=== PATIENT | female | born 1945 | race Caucasian/White ===

== ENCOUNTER 2019-11-04 04:59 | Inpatient (IN) ==
--- NOTE | 2019-10-21 10:24 | PAT Medication Instructions ---
Medication Instructions Date of Service October 21, 2019 Home Medications Vitamin B 12 Injection 1,000 mcg UD albuterol sulfate 2 inh INHALATION Q4H PRN aspirin [Aspir-81] 81 mg PO QAM atenolol 100 mg PO BID bumetanide 1 mg PO QAM cholecalciferol (vitamin D3) [Vitamin D3] 50 mcg PO BID coenzyme Q10 [CoQ-10] 100 mg PO BID dicyclomine 10 mg PO QID PRN esomeprazole magnesium [Nexium] 40 mg PO QAM gabapentin [Neurontin] 400 mg PO TID insulin glargine [Lantus Solostar U-100 Insulin] 65 unit SUBCUT HS magnesium 500 mg PO BID metformin 1,000 mg PO BID montelukast [Singulair] 10 mg PO QPM omega-3 acid ethyl esters [Lovaza] 2 cap PO BID ondansetron HCl [Zofran] 4 mg PO UD PRN ranolazine [Ranexa] 500 mg PO BID rosuvastatin [Crestor] 20 mg PO QPM semaglutide [Ozempic] 1 mg SUBCUT WK tiotropium bromide [Spiriva with HandiHaler] 1 cap INHALATION QAM vit C,X-Ye-rqgre-lutein-zeaxan [PreserVision AREDS-2] 1 tab PO BID Continue as directed semaglutide [Ozempic] 1 mg SUBCUT WK STOP taking 2 weeks before surgery (or as soon as possible if surgery is within 2 weeks) coenzyme Q10 [CoQ-10] 100 mg PO BID omega-3 acid ethyl esters [Lovaza] 2 cap PO BID vit C,I-Ug-ajksr-lutein-zeaxan [PreserVision AREDS-2] 1 tab PO BID DO NOT take the morning of surgery Vitamin B 12 Injection 1,000 mcg UD bumetanide 1 mg PO QAM cholecalciferol (vitamin D3) [Vitamin D3] 50 mcg PO BID dicyclomine 10 mg PO QID PRN magnesium 500 mg PO BID metformin 1,000 mg PO BID Take morning of surgery With a small sip of water, OTHERWISE NOTHING TO EAT OR DRINK AFTER MIDNIGHT: albuterol sulfate 2 inh INHALATION Q4H PRN (use if needed; please bring with you to hospital day of surgery if possible) aspirin [Aspir-81] 81 mg PO QAM atenolol 100 mg PO BID esomeprazole magnesium [Nexium] 40 mg PO QAM gabapentin [Neurontin] 400 mg PO TID ondansetron HCl [Zofran] 4 mg PO UD PRN (if needed) ranolazine [Ranexa] 500 mg PO BID tiotropium bromide [Spiriva with HandiHaler] 1 cap INHALATION QAM Take evening before surgery albuterol sulfate 2 inh INHALATION Q4H PRN (if needed) atenolol 100 mg PO BID cholecalciferol (vitamin D3) [Vitamin D3] 50 mcg PO BID dicyclomine 10 mg PO QID PRN (if needed) gabapentin [Neurontin] 400 mg PO TID insulin glargine [Lantus Solostar U-100 Insulin] 65 unit SUBCUT HS magnesium 500 mg PO BID metformin 1,000 mg PO BID montelukast [Singulair] 10 mg PO QPM ondansetron HCl [Zofran] 4 mg PO UD PRN (if needed) ranolazine [Ranexa] 500 mg PO BID rosuvastatin [Crestor] 20 mg PO QPM Other Notes If you have any questions please call us at [phone] or [phone] or [phone] or [phone]
--- NOTE | 2019-10-22 11:20 | Anesthesiology Consultation ---
Date of Service October 22, 2019 Assessment & Plan (1) Encounter for pre-operative examination: - Awaiting surgeon-ordered PCP clearance (Dr. Ford, 10/23) and pulmonary clearance (Dr. Tan). - Awaiting cardiology office visit scheduled 10/22 (Dr. Best). Per PAT assessment on 10/21: Travel screen negative. No known COVID-19 positive contacts. No current COVID-19 related symptoms. Per patient, surgeon arranging preop COVID testing. Awaiting results. - Check [facility] AM DOS Chart Review Chart Review: Patient seen in Pre Admission Testing Teaching & Discussion Pre-Anesthesia Teaching/Discussion Notes: Instructed NPO after midnight before surgery,except medications with 15 cc of water. Medication instructions provided according to the PAT guidelines. History Surgery Operation Date: 11/04/19 09:20 Proposed Procedures p Right Total Knee Arthroplasty - Jaxson Marques DO Height/Weight Height: 5 ft 2 in Weight: 79 kg Allergies Allergy/AdvReac Type Severity Reaction Status Date / Time ampicillin [From Omnipen] Allergy Unknown Rash Verified 10/15/19 09:13 fexofenadine [From Farzana] Allergy Unknown Rash Verified 10/15/19 09:13 lisinopril Allergy Unknown Rash Verified 10/15/19 09:13 nickel Allergy Unknown Rash Verified 10/22/19 15:31 BRAND NAMES NECESSARY Allergy Unknown PT REPORTS Uncoded 10/22/19 15:31 "NEEDS TO TAKE BRAND NAME MEDICIATIONS" Medications Home Medications Medication Instructions Recorded Confirmed Last Taken Vitamin B 12 Injection 1,000 mcg UD 10/15/19 10/15/19 10/13/19 albuterol sulfate 2 inh INHALATION Q4H PRN 10/15/19 10/15/19 Unknown aspirin [Aspir-81] 81 mg PO QAM 10/15/19 10/15/19 Unknown atenolol 100 mg PO BID 10/15/19 10/15/19 Unknown bumetanide 1 mg PO QAM 10/15/19 10/15/19 Unknown cholecalciferol (vitamin D3) 50 mcg PO BID 10/15/19 10/15/19 Unknown [Vitamin D3] coenzyme Q10 [CoQ-10] 100 mg PO BID 10/15/19 10/15/19 Unknown dicyclomine 10 mg PO QID PRN 10/15/19 10/15/19 Unknown esomeprazole magnesium [Nexium] 40 mg PO QAM 10/15/19 10/15/19 Unknown gabapentin [Neurontin] 400 mg PO TID 10/15/19 10/15/19 Unknown insulin glargine [Lantus Solostar 65 unit SUBCUT HS 10/15/19 10/15/19 Unknown U-100 Insulin] magnesium 500 mg PO BID 10/15/19 10/15/19 Unknown metformin 1,000 mg PO BID 10/15/19 10/15/19 Unknown montelukast [Singulair] 10 mg PO QPM 10/15/19 10/15/19 Unknown omega-3 acid ethyl esters [Lovaza] 2 cap PO BID 10/15/19 10/15/19 Unknown ondansetron HCl [Zofran] 4 mg PO UD PRN 10/15/19 10/15/19 Unknown ranolazine [Ranexa] 500 mg PO BID 10/15/19 10/15/19 Unknown rosuvastatin [Crestor] 20 mg PO QPM 10/15/19 10/15/19 Unknown semaglutide [Ozempic] 1 mg SUBCUT WK 10/15/19 10/15/19 Unknown tiotropium bromide [Spiriva with 1 cap INHALATION QAM 10/15/19 10/15/19 Unknown HandiHaler] vit C,Q-Gv-mvzwe-lutein-zeaxan 1 tab PO BID 10/15/19 10/15/19 Unknown [PreserVision AREDS-2] Past Medical History Medical History (Updated 10/22/19 @ 15:34 by Quin Whitmore) Acid reflux CAD (coronary artery disease) non-obstructive per 07/2019 cardiac cath COPD (chronic obstructive pulmonary disease) Diabetes Hiatal hernia High cholesterol History of back problems History of lung cancer History of skin cancer s/p multiple skin excisions HTN (hypertension) IBS (irritable bowel syndrome) Osteoarthritis Exercise / Class Metabolic Activity III < 4 Walking/Shop/Light housework Past Family History Family History Father Family history of lung cancer Mother Family history of lung cancer Sister Family history of diabetes mellitus Sister Family history of diabetes mellitus Brother Family history of diabetes mellitus Uncle Family history of diabetes mellitus Uncle Family history of diabetes mellitus Past Surgical History Surgical History (Updated 10/22/19 @ 11:49 by Quin Whitmore) History of breast biopsy R&L History of cardiac cath 07/2019 - no stents, 2019- no stents History of colonoscopy History of endoscopy MULTIPLE History of hysterectomy History of lobectomy of lung LEFT UPPER (9-10 YR AGO) History of lumbar spinal fusion History of lumbar spinal fusion REVISION History of surgery R ANKLE, 2 YR OLD History of total right knee replacement Past Anesthesia History No Hx of Anesthesia Complications and No Family Hx of Anesthesia Complications History of PONV No Hx of PONV and Hx of Motion Sickness (+ WITH BOAT RIDES) Social History Smoking Status: Current every day smoker tobacco type: cigarettes Smoking cigarettes per day: 3-4 CIGS/DAILY/ADVISED NPO Do You Dip or Chew Tobacco: No Hx Alcohol Use: No Hx Substance Use: No substance use type: does not use Review of Systems Patient denies chest pain (no recent chest pain for "a long time" since starting Ranexa), shortness of breath, fever, chills, wheezing, palpitations. Physical Exam Vital Signs VITALS BP 100/60 P 86 TEMP 98.1 SP02 97%RA RESP 18 PHYSICAL Full neck and c-spine range of motion. Full TMJ range of motion. TMD 3 finger breaths Mallampati Score 1 Dentition: missing molars, several crowns including sides/upper front, left lower side bridge Lungs: clear throughout to auscultation Cardiac: regular rate and rhythm, no murmurs noted Spine: normal Carotid arteries: negative bruit Extremities: no edema Testing Laboratory Results PT 10.2 Seconds (9.0-12.0) 10/22/19 12:09 INR 1.0 (0.9-1.1) 10/22/19 12:09 APTT 29.1 Seconds (21.0-31.0) 10/22/19 12:09 Urine Color Dark Yellow 10/22/19 12:09 Urine Appearance Turbid (Clear) A 10/22/19 12:09 Urine pH 5.0 (4.5-7.5) 10/22/19 12:09 Ur Specific [place] 1.016 (1.000-1.030) 10/22/19 12:09 Urine Protein 1+ (Negative) H 10/22/19 12:09 Urine Glucose (UA) Negative (Negative) 10/22/19 12:09 Urine Ketones Trace (Negative) H 10/22/19 12:09 Urine Nitrite Negative (Negative) 10/22/19 12:09 Ur Leukocyte Esterase 3+ (Negative) H 10/22/19 12:09 Urine WBC (Auto) >30 /hpf (0-5) H 10/22/19 12:09 Urine RBC (Auto) >30 /hpf (0-4) H 10/22/19 12:09 U Hyaline Cast (Auto) 1-5 /lpf (0-5) 10/22/19 12:09 U Epithel Cells (Auto) >30 /lpf (0-5) H 10/22/19 12:09 Urine Bacteria (Auto) 4+ (Negative) H 10/22/19 12:09 Blood Type O Positive 10/22/19 12:09 Antibody Screen NEGATIVE 10/22/19 12:09 10/09/19 WBC 6.72 H/H 11.9/35.6 PLATELETS 247 SODIUM 139 POTASSIUM 4.3 CHLORIDE 103 CO2 27.2 BUN 20.2 CREATININE 1.38 GLUCOSE 126 HGBA1C 6.3% Electrocardiogram Date: 07/08/19 SR with occasional PVC's at 94bpm. LBBB. (LBBB chronic/dating back to at least 09/18/2017 [facility] EKG) Chest X-Ray Date: 10/22/19 FINDINGS: The cardiac and mediastinal contours are normal. There is no evidence of focal pulmonary consolidation. There is no evidence of failure. No pleural effusions are visualized.[There is a calcified right perihilar granuloma. IMPRESSION: No active disease in the chest. Echocardiogram Date: 10/07/18 EF 45-50%. No RWMA. Mild cLVH. Mild global HK. No significant valvular disease. Cardiac Catheterization Date: 07/09/19 Multivessel non-obstructive CAD. Acute on chronic predominately diastolic congestive heart failure. LVEF 45%. Mild global HK. Pulmonary HTN secondary to LV diastolic dysfunction. Medical management recommended*
--- NOTE | 2019-10-22 13:04 | XRay Report ---
XR chest Pre-admission PA/Lat CLINICAL HISTORY: PAT COMPARISON STUDY: 09/18/2017 FINDINGS: The cardiac and mediastinal contours are normal. There is no evidence of focal pulmonary co nsolidation. There is no evidence of failure. No pleural effusions are visualized.[There is a calcifi ed right perihilar granuloma IMPRESSION: No active disease in the chest. ACT 112: Negative or not required by law. Electronically signed by: Van Smith M.D. 10/22/2019 1:03 PM
[2019-10-22 13:10] LABS: Partial Thromboplastin Time 29.1 Seconds (21.0-31.0); Prothrombin Time 10.2 Seconds (9.0-12.0)
[2019-10-22 13:44] LABS: Appearance Urine Turbid (Clear); Bacteria Urine Automated 4+ (Negative); Bilirubin Urine Negative (Negative); Blood Urine Trace (Negative); Color Urine Dark Yellow; Epithelial Cell Urine Auto >30 /lpf (0-5); Glucose Urine UA Negative (Negative); Ketones Urine Trace (Negative); Leukocyte Esterase Urine 3+ (Negative); Nitrite Urine Negative (Negative); Protein Urine 1+ (Negative); RBC Urine Automated >30 /hpf (0-4); Specific Gravity Urine 1.016 (1.000-1.030); Urobilinogen Urine Negative (Negative); WBC Urine Automated >30 /hpf (0-5)
--- NOTE | 2019-11-02 10:57 | History & Physical Report ---
Date of Service November 04, 2019 Assessment & Plan (1) Degenerative joint disease of knee, right: I have indicated the patient for right total knee replacement. The risks, benefits and complications of surgery were explained to the patient which include but not limited to infection, acute blood loss, DVT/PE, injury to nerves, vessels, bone, soft tissue, arthrofibrosis, chronic pain, failure of the prosthesis, knee dislocation, leg length discrepancy, need for additional surgery, cardiac and pulmonary events and . The patient wished to proceed with surgery and informed consent was obtained at this time. We will plan for ASA BID post-operatively for DVT prophylaxis. Upon discharge the patient will be discharged home with home health services. Appropriate clearances by PCP and cardiology were obtained. Patient is asymptomatic for UTI. History of Present Illness Chief Complaint: Right knee pain/djd Primary Care Provider: Kaylynn Mckoy DO The patient is a 74 year old female who presents with complaints of severe right knee pain and DJD. The patient has failed outpatient conservative treatments to this point which included NSAIDs, IA corticosteroid injection, KABA injection, home exercise/walking program. The patient's pain and limited function have progressed to the point where they severely hinder their activities of daily living and they no longer tolerate exercise programs. They are requesting to proceed with total knee replacement surgery. Allergies Allergy/AdvReac Type Severity Reaction Status Date / Time ampicillin [From Omnipen] Allergy Unknown Rash Verified 11/04/19 06:30 fexofenadine [From Farzana] Allergy Unknown Rash Verified 11/04/19 06:30 lisinopril Allergy Unknown Rash Verified 11/04/19 06:30 nickel Allergy Unknown Rash Verified 11/04/19 06:30 BRAND NAMES NECESSARY Allergy Unknown PT REPORTS Uncoded 10/22/19 15:31 "NEEDS TO TAKE BRAND NAME MEDICIATIONS" Home Medications Home Medications Medication Instructions Recorded Confirmed Type Vitamin B 12 Injection 1,000 mcg UD 10/15/19 11/04/19 History albuterol sulfate 2 inh INHALATION Q4H PRN 10/15/19 11/04/19 History aspirin [Aspir-81] 81 mg PO QAM 10/15/19 11/04/19 History atenolol 100 mg PO BID 10/15/19 11/04/19 History bumetanide 1 mg PO QAM 10/15/19 11/04/19 History cholecalciferol (vitamin D3) 50 mcg PO BID 10/15/19 11/04/19 History [Vitamin D3] coenzyme Q10 [CoQ-10] 100 mg PO BID 10/15/19 11/04/19 History dicyclomine 10 mg PO QID PRN 10/15/19 11/04/19 History esomeprazole magnesium [Nexium] 40 mg PO QAM 10/15/19 11/04/19 History gabapentin [Neurontin] 400 mg PO TID 10/15/19 11/04/19 History insulin glargine [Lantus Solostar 65 unit SUBCUT HS 10/15/19 11/04/19 History U-100 Insulin] magnesium 500 mg PO BID 10/15/19 11/04/19 History metformin 1,000 mg PO BID 10/15/19 11/04/19 History montelukast [Singulair] 10 mg PO QPM 10/15/19 11/04/19 History omega-3 acid ethyl esters [Lovaza] 2 cap PO BID 10/15/19 11/04/19 History ondansetron HCl [Zofran] 4 mg PO UD PRN 10/15/19 11/04/19 History ranolazine [Ranexa] 500 mg PO BID 10/15/19 11/04/19 History rosuvastatin [Crestor] 20 mg PO QPM 10/15/19 11/04/19 History semaglutide [Ozempic] 1 mg SUBCUT WK 10/15/19 11/04/19 History tiotropium bromide [Spiriva with 1 cap INHALATION QAM 10/15/19 11/04/19 History HandiHaler] vit C,O-Tv-dxack-lutein-zeaxan 1 tab PO BID 10/15/19 11/04/19 History [PreserVision AREDS-2] Past Med/Surg History Medical History Acid reflux CAD (coronary artery disease) non-obstructive per 07/2019 cardiac cath COPD (chronic obstructive pulmonary disease) Diabetes Hiatal hernia High cholesterol History of back problems History of lung cancer History of skin cancer s/p multiple skin excisions HTN (hypertension) IBS (irritable bowel syndrome) Osteoarthritis Surgical History History of breast biopsy R&L History of cardiac cath 07/2019 - no stents, 2019- no stents History of colonoscopy History of endoscopy MULTIPLE History of hysterectomy History of lobectomy of lung LEFT UPPER (9-10 YR AGO) History of lumbar spinal fusion History of lumbar spinal fusion REVISION History of surgery R ANKLE, 2 YR OLD History of total right knee replacement Family History Father Family history of lung cancer Mother Family history of lung cancer Sister Family history of diabetes mellitus Sister Family history of diabetes mellitus Brother Family history of diabetes mellitus Uncle Family history of diabetes mellitus Uncle Family history of diabetes mellitus Social History Smoking Status: Current every day smoker Cigarettes Per Day: 3-4 CIGS/DAILY/ADVISED NPO; Do You Dip or Chew Tobacco: No; Hx Alcohol Use: No Hx Substance Use: No Preferred Language: Ukrainian Communication Ability: Effective Dolphin Trainer Required: No Beliefs That Will Affect Care: Confucianist Confucianist Beliefs: JEWISH Current Living Situation: Spouse Other Information That Helps Us Care for You: No Feels Safe at Home: Yes Review of Systems Review of Systems: All systems reviewed & are unremarkable except as noted in HPI & below Constitutional: as per Subjective / HPI Physical Exam Physical Exam: RLE NVSI +EHL/FHL/TA/GS SILT grossly, +2 DP pulse, compartments soft NT, limited painful ROM, 10-115 degrees of flexion, +crepitus. Constitutional: WD/WN, vitals as above Eyes: PERRL, conjunctivae normal, anicteric sclerae ENMT: external ear and nose normal, oropharynx normal Neck: trachea midline, no thyromegaly Respiratory: normal respiratory effort, lungs clear to auscultation Cardiovascular: RRR, no murmur, no edema Gastrointestinal (Abdomen): normal bowel sounds, soft, nontender, no hepatosplenomegaly Musculoskeletal: no cyanosis or clubbing, extremities motor strength 5/5 Skin: no rashes, warm and dry Neurologic: patellar DTR's 2+ bilat, sensation intact Psychiatric: A+Ox3, euthymic affect Lymphatic: no cervical or axillary lymphadenopathy Results & Data Results & Data ([facility]) Diagnostic Findings Multiple views of the knee demonstrates severe tricompartmental DJD with complete loss of the medial and patellofemoral joint space. +osteophytes, +sclerosis, +subchondral cysts.
[2019-11-04] MEDS ORDERED: ROPIVACAINE 0.5% HCL/PF 150 MG, BUPIVACAINE 0.5% MPF 30 ML, EPINEPHrine 30MG/30ML (OR U... INSTIL SCH (06:00)
[2019-11-04] MEDS ORDERED: TRANEXAMIC ACID 1,000 MG **IV Pre-op IV SCH (06:00)
[2019-11-04] MEDS ORDERED: METOCLOPRAMIDE HCL 10 MG TABLET PO SCH (06:00)
[2019-11-04] MEDS ORDERED: FAMOTIDINE 20 MG TAB PO SCH (06:00)
[2019-11-04] MEDS ORDERED: GABAPENTIN 300 MG CAP PO SCH (06:00)
[2019-11-04] MEDS ORDERED: dexAMETHasone 4 MG TAB PO SCH (06:00)
[2019-11-04] MEDS ORDERED: LR 500ML BOLUS, THEN 15ML/HR IV SCH (06:00)
[2019-11-04] MEDS ORDERED: ACETAMINOPHEN 500 MG TAB PO SCH (06:00)
[2019-11-04] MEDS ORDERED: CeleBREX 200 MG CAP PO SCH (06:00)
[2019-11-04] MEDS ORDERED: TRANEXAMIC ACID 1,000 MG **IV Intra-op IV SCH (06:00)
[2019-11-04] MEDS ORDERED: BUPIVACAINE 0.5 % 5 MG/1 ML PF 10ML VIAL ONE (06:33)
[2019-11-04] MEDS ORDERED: LIDOCAINE HCL 2% 2 ML VIAL/AMP(20MG/ML) INFIL ONE (06:44)
[2019-11-04] MEDS ORDERED: ONDANSETRON INJ 2 MG/ML 2 ML VIAL ONE (06:44)
[2019-11-04] MEDS ORDERED: MIDAZOLAM HCL 1 MG/ML 2ML VIAL ONE ×2 (06:44→06:47)
[2019-11-04] MEDS ORDERED: fentaNYL citrate 100 MCG/2 ML VIAL ONE (06:44)
[2019-11-04] MEDS ORDERED: PROPOFOL IV EMULSION 10 MG/ML 20 ML VIAL IV ONE (06:44)
[2019-11-04] MEDS ORDERED: ONDANSETRON INJ 2 MG/ML 2 ML VIAL IV PRN ×2 (08:52→13:48)
[2019-11-04] MEDS ORDERED: ePHEDrine sulfate 50 MG/ML AMP IV PRN (08:52)
[2019-11-04] MEDS ORDERED: fentaNYL citrate 100 MCG/2 ML VIAL IV PRN (08:52)
[2019-11-04] MEDS ORDERED: ATROPINE SULFATE 0.1 MG/ML 10ML SYR IV PRN (08:52)
[2019-11-04] MEDS ORDERED: CEFAZOLIN 2,000 MG/15 ML IV PUSH IV ONE (09:40)
--- NOTE | 2019-11-04 09:43 | History & Physical Bridge Note ---
Date of Service November 04, 2019 History & Physical Bridge Note I have examined the patient, reviewed the History & Physical and in the interval since the performance of the History & Physical I have noted the following changes of clinical significance: no changes noted
[2019-11-04] MEDS ORDERED: CEFAZOLIN 2000MG 2,000 MG/15 ML SYR IV ONE (09:51)
[2019-11-04] MEDS ORDERED: ORTHO JOINT ANESTHETIC ONE (09:52)
[2019-11-04] MEDS ORDERED: BACITRACIN INJ 50,000 UNIT VIAL ONE (09:52)
[2019-11-04] MEDS ORDERED: ePHEDrine sulfate 50 MG/ML AMP ONE (11:57)
[2019-11-04] MEDS ORDERED: VASOPRESSIN 20 UNIT/ML VIAL ONE (11:57)
[2019-11-04] MEDS ORDERED: PHENYLEPHRINE HCL 10 MG/ML VIAL ONE (11:57)
[2019-11-04] MEDS ORDERED: NEOSTIGMINE METHYLSULFATE 5 MG/5 ML SYR ONE (11:57)
--- NOTE | 2019-11-04 12:02 | Post Operative Brief Note ---
Immediate Post Op Note v1 Date of Surgery November 04, 2019 Pre & Post Diagnosis Operation Date: 11/04/19 09:35 Pre-Op Diagnosis: Unilateral Primary Osteoarthritis, Right Knee Post-Op Diagnosis: Unilateral Primary Osteoarthritis, Right Knee I identified the patient and participated in the time-out.: Yes Procedure Operation Date: 11/04/19 09:35 Actual Procedures p Right Total Knee Arthroplasty - Jaxson Marques DO Surgeon Jaxson Marques DO Team Manager Sumit Lantigua Estimated Blood Loss 65 Findings Consistent with Post-Op Diagnosis Fluids 800 cc LR Specimens Proximal tibia and distal femur Anesthesia Type Spinal MAC Complications none Disposition Disposition: Recovery Room Overlapping Procedure I was present for: the critical portions of procedure. I was immediately available: during the entire case. Back up surgeon: was not required during procedure.
--- NOTE | 2019-11-04 12:07 | Operative Report ---
Post Operative Report Pre & Post Diagnosis Operation Date: 11/04/19 09:35 Pre-Op Diagnosis: Unilateral Primary Osteoarthritis, Right Knee Post-Op Diagnosis: Unilateral Primary Osteoarthritis, Right Knee I identified the patient and participated in the time-out.: Yes Procedure Operation Date: 11/04/19 09:35 Actual Procedures p Right Total Knee Arthroplasty - Jaxson Marques DO Surgeon Jaxson Marques, Plate Worker Helper Sumit Lantigua Estimated Blood Loss 65 Findings Consistent with Post-Op Diagnosis Fluids 800 cc LR Specimens Proximal tibia and distal femur bone fragments Anesthesia Type Spinal MAC Complications none Disposition Disposition: Recovery Room Indications The patient is a 74-year-old female presents with long history of severe right knee tricompartmental DJD and failed outpatient conservative treatments including NSAIDs, bracing, injections and home walking/exercise program. The patient's symptoms have progressed to the point where it has been difficult to p erform normal activities of daily living. I have indicated the patient for a right total knee arthroplasty, the risks and benefits and complications of the procedure include but are not limited to infection bleeding damage to bone, nerves, vessels, surrounding soft tissue, blood clots, loss of function, leg length discrepancy, dislocation, failure of the components, need for additional surgery and . The patient wished to proceed with surgery at this time and informed consent was obtained. Appropriate clearances were obtained. Description of Procedure COMPONENTS USED: [employer] journey 2 knee system: Femur size 3, Tibia size 2 tibial articulating surface 12 semiconstrained, Patella 29 mm Following induction of spinal anesthesia, a tourniquet was applied to the proximal aspect of the thigh and the patient's right leg was prepped and draped in the usual sterile manner. A timeout was performed, patient identified and s ite bharath confirmed. Appropriate pre-operative IV antibiotics were given. The limb was exsanguinated with an Esmarch bandage and tourniquet was inflated to 300 mmHg. A longitudinal midline incision was made over the anterior knee. Subcutaneous tissue was sharply dissected down to fascia. Electrocautery was used for hemostasis. Next a parapatellar arthrotomy was performed. Patella was everted and the knee was flexed. A Wood retractor was used to expose the synovium above on the anterior aspect of the femur and removed down to bone. Next, the anterior fat pad was removed to aid in visualization. The medial face of the tibia was cleared of soft tissue first with a Bovie and a kaur elevator. This tissue was retracted posteriorly using a blunt Hohmann. Next, the extra-medullary tibial cutting guide was placed to the anterior aspect of the tibia. The tibia resection level was set taking 2mm from the defective tibial condyle. Resection depth was once again confirmed with kyara wing. The medial and lateral collateral ligament was protected with two Hohmann retractors. The tibia guide was removed and proximal tibial bone fragment removed utilizing straight osteotome, electrocautery and Cristina. Next, the distal femur intramedullary canal was accessed utilizing the step drill. The intramedullary distal femur cutting guide was placed into the canal and pinned into place. The distal femur was cut on the 5 degree setting. Next the cutting guide was removed and the femur was sized. Care was taken to ensure appropriate associate juvenile court judge all rotation and 3 degree holes were drilled. A size 3 5-in-1 cutting block was placed on the distal end of the femur and secured into place with two short headed screws. Two bent Hohmann retractors were placed to protect the medial and lateral collateral ligaments. The oscillating saw was used to cut anterior, posterior, anterior chamfer and posterior chamfer. The four and one cutting block was removed and bone fragments excised. Laminar cuff knitter was placed laterally and the ACL and PCL were removed followed by the medial meniscus and posterior medial osteophytes. Aquamantys was utilized for any posterior medial bleeders and Orthomix injected into the posterior medial capsule. A laminar cuff knitter was then placed in the medial compartment and the lateral meniscus and posterior osteophytes were removed. Aquamantys was utilized for any posterior lateral bleeders and Orthomix injected into the posterior lateral capsule. Next, drop mike and spacer block were placed with the leg in flexion and extensi on to assess alignment and flexion/extension gaps. Next, the proximal tibia was assessed and two bent Hohmans were placed medial and lateral to aid in visualization. The appropriate tibia size and rotation was selected and a size 2 tibial plate was pinned into place with appropriate rotation. Preparation of the tibia was completed utilizing the matching tibial drill and broach. I then turned my attention back to the distal femur in a trial femoral component was impacted into place. Appropriate femoral width was assessed and selected. Next the femur box cut guide was placed and cut made with the reciprocal saw and the PS box provisional placed. A trial size 10 BCS tibia articular tray was placed and varus-valgus balance assessed in 0 degrees of extension and 30, 60 and 90 degrees of flexion. A final tibial articular surface size 12 BCS constrained was chosen. Assess was gained to the patella and caliper utilized to measure width. The patella reamer was utilized and remaining bone removed with oscillating saw. A size 29 patella button was selected and the patella pegs drilled. Trial patella button was placed and tracking was assessed. The knee was found to be well ba lanced, well aligned with excellent patella tracking. The trials were removed and final components were obtained and assembled. The knee was irrigated copiously with sterile saline solution mixed with bacitracin. Access to the proximal tibia was once again obtained utilizing to the Hohmans and the proximal tibia and distal femur were dried with lap sponges. The final components were cemented into place and all excess cement was removed. A trial tibial articular surface was placed while cemented hardened. Knee stability was once again assessed and the final component inserted. A Betadine soak was performed. After 3 minutes, the hip was once more irrigated with copious sterile saline solution with bacitracin. The knee was injected with the remaining Orthomix which includes a combination of Ropivicaine 0.5% 150mg, Bupivicaine 0.5%/Epinephrine 1:200,000 30ml, Toradol 30mg, Dexamethasone 4mg, Ketamine 10mg, Clonidine 100mcg and NSS 30ml solution. The capsulotomy was closed with #1 Vicryl followed by subcutaneous closure with 2-0 Vicryl suture and a 3-0 V-lock suture. Skin closure was performed using Prineo dressing followed by Telfa, 4 x 4s and june wrap. Tourniquet was deflated at 98 minutes. The patient tolerated the procedure well and was taken to the PACU in stable condition. Due to the complex nature of the procedure, the entire surgery was performed with the operational assistance of Sumit Lantigua PA-C. The physical laboratory assistant, under direct supervision, was involved in the actual performance of all aspects of the surgical procedure including patient positioning, hemostasis, tissue retraction, instrument management and wound closure. I attest to the content of the Intraoperative Record and any orders documented therein. Any exceptions are noted below.
--- NOTE | 2019-11-04 12:59 | XRay Report ---
XR knee RT 1 or 2V routine CLINICAL HISTORY: Surgical Post Op COMPARISON: None. DISCUSSION: There are postsurgical changes of a total right knee arthroplasty and patellar resurfacin g. The femoral and tibial components appear well seated. There is gas present the soft tissues consis tent with recent surgery. IMPRESSION: Postsurgical changes of a total right knee arthroplasty. ACT 112: Negative or not required by law. Electronically signed by: Van Smith M.D. 11/04/2019 12:58 PM
--- NOTE | 2019-11-04 13:25 | Anesthesiology Progress Note ---
Date of Service November 04, 2019 Anesthesia Post Procedure Vital Signs Vital Signs: Temp Pulse Pulse Resp BP BP Pulse Ox 11/04/19 13:05 97 H 14 142/56 H 94 11/04/19 12:55 96 H 14 126/57 L 94 11/04/19 12:45 98.1 F 96 H 16 81/56 L 94 11/04/19 12:35 95 H 15 90/53 L 95 11/04/19 12:28 98.2 F 96 H 16 93/59 L 96 11/04/19 08:45 98.1 F 89 18 88/66 L 99 11/04/19 07:16 98.6 F 87 20 136/66 94 Transfer of Care Handoff Completed per policy Notes Mental Status: alert / awake / arousable and participated in evaluation Patient Amnestic to Procedure: Yes Nausea / Vomiting: adequately controlled Pain: adequately controlled Airway Patency, RR, SpO2: stable & adequate BP & HR: stable & adequate Hydration State: stable & adequate Neuraxial Anesthesia: was administered and sensory block is resolving Anesthetic Complications: no major complications apparent and Pt Satisfied with anesthetic care
[2019-11-04] MEDS ORDERED: MAGNESIUM HYDROXIDE SUSP 30 ML UDC PO PRN (13:48)
[2019-11-04] MEDS ORDERED: ALBUTEROL HFA 8 GM INHALER INH PRN (13:48)
[2019-11-04] MEDS ORDERED: HYDROmorphone INJ 0.5 MG/0.5 ML SYR IV PRN (13:48)
[2019-11-04] MEDS ORDERED: DICYCLOMINE HCL 10 MG CAP PO PRN (13:48)
[2019-11-04] MEDS ORDERED: NALOXONE HCL 0.4 MG/1 ML VIAL/CARP IV PRN (13:48)
[2019-11-04] MEDS ORDERED: bisacodyL 10 MG SUPP PR PRN (13:48)
[2019-11-04] MEDS ORDERED: METOCLOPRAMIDE HCL INJ 5 MG/ML 2 ML VIAL IV PRN (13:48)
[2019-11-04] MEDS ORDERED: PHARMACY GLYCEMIC MGMT CONSULT PRN (13:59)
[2019-11-04] MEDS ORDERED: INSULIN GLARGINE SOLOSTAR 100 UNITS/ML 3 ML PEN SC STA (14:13)
--- NOTE | 2019-11-04 14:29 | Pharmacy Report ---
Glycemic Control Consultation - Date of Service November 04, 2019 - Scope Scope: Glycemic Pharmacist consulted for glycemic control and to write orders per [facility] inpatient glycemic control protocol. - Objective Weight: 78.3 kg Accuchecks BSG (last 24hrs): 11/04/19 11/04/19 06:15 13:34 POC Glucose 233 H 221 H - Recent Pertinent Medications Outpatient Anti-diabetic Regimen: * Lantus 65 units SC HS + Ozempic 1 mg SC Saturdays + Metformin 1000 mg PO BIDM * A1c = 6.8% (08/02/2017) Risk Factors for Insulin Resistance: * Steroids: * Dexamethasone 8 mg PO x 1 pre-op * Dexamethasone 4 mg topical x 1 intra-op * Recent Surgery: * POD #0 s/p R TKA * Diet: * T2DM - Assessment & Plan Assessment & Plan: ASSESSMENT: * 74 yo F who is POD #0 s/p Right Total Knee Arthroplasty. Pharmacy is consulted for post-operative glycemic management. * Last A1c is from 2018 so ordered a new A1c for tomorrow morning. Patient has insulin-dependent T2DM and is very basal heavy at home. ADA & AACE recommend a goal blood sugar range 140-180 mg/dl for the majority of critically ill & non- critically ill patients. However, more stringent targets may be selected in individual cases. Will utilize more stringent goal of 110-140mg/dl based on patient age & comorbidities. Additionally, tighter glycemic control is warranted to facilitate wound/infection healing. * She did receive dexamethasone pre-op but no further doses are ordered. Dexamethasone will have it's most profound effect on post-prandial BSGs. * Pre-op BSG was 233 mg/dL. Does not appear that patient received any pre-op or intra-op insulin. She did take her full Lantus 65 units last evening. Her post-op BSG was 221 mg/dL. * Will give 20 units of Lantus x 1 right now (0.26 units/kg). Then will resume home dose of Lantus 65 units at HS. Given post-op hyperglycemia and patient ordered a diet/eating, will start patient on a very high dose/stress, weight- based, carb ratio and correction factor. PLAN FOR INPATIENT GLYCEMIC CONTROL: * Holding outpatient oral diabetes medications * Basal insulin * Lantus 20 units SQ x 1 now * Lantus 65 units SQ HS * Bolus insulin * NovoLog per scale ACHS or Q6hrs while NPO * Goal Range: Low 110 mg/dL - High 140 mg/dL * Correction Factor: 15 mg/dL/unit * Nutritional / Prandial insulin per carb ratio of 1 unit per 5 grams CHO consumed * Please note that the plan above was derived based on current level of insulin resistance and hospital stress. These recommendations are appropriate for inpatient admission only. Plan of care upon discharge will need to be reassessed to avoid potential outpatient hypo/hyperglycemia. Thank you.
[2019-11-04] MEDS ORDERED: INSULIN GLARGINE SOLOSTAR 100 UNITS/ML 3 ML PEN SC ONE (14:30)
[2019-11-04] MEDS: SODIUM CHLORIDE 0.9% 1000ML 1,000 ML IV SCH ×2 (14:43→23:56)
[2019-11-04] MEDS: ACETAMINOPHEN 500 MG TAB PO SCH ×2 (15:12→21:35)
[2019-11-04] MEDS: GABAPENTIN 400 MG CAP PO SCH ×2 (15:21→19:29)
[2019-11-04] MEDS: INSULIN ASPART 100 UNITS/ML 3 ML PEN SC SCH ×3 (15:21→21:26)
[2019-11-04] MEDS ORDERED: INSULIN GLARGINE SOLOSTAR 100 UNITS/ML 3 ML PEN SC SCH ×2 (18:00→21:00)
[2019-11-04] MEDS: KETOROLAC TROMETHAMINE 15 MG/ML VIAL IV SCH ×2 (18:23→21:35)
[2019-11-04] MEDS: CEFAZOLIN 2000MG 2,000 MG/15 ML SYR IV SCH (18:24)
[2019-11-04] MEDS: SENNA 8.6 MG TAB PO SCH (19:19)
[2019-11-04] MEDS: DOCUSATE SODIUM 100 MG CAP PO SCH (19:19)
[2019-11-04] MEDS: ROSUVASTATIN CALCIUM 20 MG TAB PO SCH (19:28)
[2019-11-04] MEDS: MONTELUKAST SODIUM 10 MG TABLET PO SCH (19:30)
[2019-11-04] MEDS: RANOLAZINE 500 MG ER TAB PO SCH (19:30)
[2019-11-04] MEDS: ATENOLOL 50 MG TABLET PO SCH (19:32)
--- NOTE | 2019-11-04 19:45 | Orthopedic Progress Note ---
Date of Service November 04, 2019 Assessment & Plan (1) Degenerative joint disease of knee, right: s/p Right TKA -ancef x 24 -DVT ppx: SCDs, TEDs, ASA BID -WBAT RLE -PT/OT -PO XR demonstrates a well aligned well fixed prothesis without fracture/dislocation -am labs -DC planning Admission and Anticipated Discharge Date Admission Date: November 04, 2019 Subjective Post Operative Progress Note Patient seen sitting in chair at bedside, comfortable, denies complaints, pain well controlled, no acute issues. Review of Systems Review of Systems: All systems reviewed & are unremarkable except as noted in HPI & below Constitutional: as per Subjective / HPI Physical Exam Physical Exam: RLE NVSI +EHL/FHL/TA/GS SILT grossly, +2 DP pulse, compartments soft NT, dressing cdi. Constitutional: WD/WN, vitals as above Results & Data ([facility]) Vital Signs (Past 12 Hours) Vital Signs Temp Pulse Pulse Pulse Resp BP BP 11/04/19 16:35 36.7 C 102 H 17 127/62 11/04/19 15:43 36.7 C 100 H 17 133/67 11/04/19 14:40 99 H 16 162/81 H 11/04/19 14:10 99 H 16 156/81 H 11/04/19 13:40 36.9 C 96 H 14 137/63 11/04/19 13:25 98 H 14 138/62 11/04/19 13:05 97 H 14 142/56 H 11/04/19 12:55 96 H 14 126/57 L 11/04/19 12:45 36.7 C 96 H 16 81/56 L 11/04/19 12:35 95 H 15 90/53 L 11/04/19 12:28 36.8 C 96 H 16 93/59 L 11/04/19 08:45 36.7 C 89 18 88/66 L Pulse Ox 11/04/19 16:35 94 11/04/19 15:43 94 11/04/19 14:40 97 11/04/19 14:10 98 11/04/19 13:40 98 11/04/19 13:25 96 11/04/19 13:05 94 11/04/19 12:55 94 11/04/19 12:45 94 11/04/19 12:35 95 11/04/19 12:28 96 11/04/19 08:45 99
[2019-11-04] MEDS ORDERED: INSULIN REGULAR 250 UNITS in SODIUM CHLORIDE 0.9% 247.5 ML IV SCH (21:00)
[2019-11-04] MEDS ORDERED: INSULIN HUMAN REGULAR IV BOLUS 2 UNITS in SYRINGE 0 ML IV ONE (21:00)
[2019-11-04] MEDS: INSULIN GLARGINE SOLOSTAR 100 UNITS/ML 3 ML PEN SC SCH (21:20)
[2019-11-04] MEDS: ALBUTEROL INH PRN (21:45)
[2019-11-04 21:53] LABS: BUN Creatinine Ratio 9.1 (10-20); Calcium 8.9 mg/dl (8.5-10.1); Creatinine Clr Calc Pharmacy 26.7 ml/min; Est GFR (African American) 31.8; Est GFR (Non-African American) 27.4; Potassium 4.7 mmol/L (3.5-5.1)
[2019-11-04 22:07] LABS: Beta-Hydroxybutyrate 3.45 mg/dl (0.2-2.81)
[2019-11-05] MEDS: CEFAZOLIN 2000MG 2,000 MG/15 ML SYR IV SCH (01:50)
[2019-11-05] MEDS: KETOROLAC TROMETHAMINE 15 MG/ML VIAL IV SCH ×2 (04:17→09:12)
[2019-11-05] MEDS: ACETAMINOPHEN 500 MG TAB PO SCH ×3 (06:44→20:38)
[2019-11-05] MEDS ORDERED: NovoLIN-N (NPH) PER UNIT CHARGE SQ ONE (07:30)
[2019-11-05 07:38] LABS: Hematocrit (blood only) 29.1 % (37-47); Hemoglobin 10.1 g/dL (12.0-16.0); Mean Corpuscular Hemoglobin 31.3 pg (25-34); Mean Corpuscular Hgb Conc 34.7 g/dL (32-36); Mean Corpuscular Volume 90.1 fL (80-100); Mean Platelet Volume 8.9 fL (7.4-10.4); Platelet Count 233 K/uL (130-400); RDW Coefficient of Variation 14.9 % (11.5-14.5); RDW Standard Deviation 48.5 fL (36.4-46.3); Red Blood Count 3.23 M/uL (4.2-5.4); White Blood Count 12.04 K/uL (4.8-10.8)
[2019-11-05] MEDS: UMECLIDINIUM BROMIDE 62.5MCG/BLISTER 7 PUFFS/INHALER INH SCH (08:08)
[2019-11-05] MEDS: ATENOLOL 50 MG TABLET PO SCH ×2 (08:09→20:37)
[2019-11-05] MEDS: RANOLAZINE 500 MG ER TAB PO SCH ×2 (08:09→20:37)
[2019-11-05] MEDS: BUMETANIDE 1 MG TAB PO SCH ×2 (08:09→08:41)
[2019-11-05] MEDS: PANTOprazole 40 MG TAB PO SCH (08:09)
[2019-11-05] MEDS: MULTIVITAMIN TAB PO SCH (08:09)
[2019-11-05] MEDS: GABAPENTIN 400 MG CAP PO SCH ×3 (08:10→20:37)
[2019-11-05] MEDS: DOCUSATE SODIUM 100 MG CAP PO SCH ×2 (08:10→20:38)
[2019-11-05 08:11] LABS: BUN Creatinine Ratio 11.7 (10-20); Calcium 8.6 mg/dl (8.5-10.1); Creatinine Clr Calc Pharmacy 34.4 ml/min; Est GFR (African American) 43.2; Est GFR (Non-African American) 37.2; Potassium 4.6 mmol/L (3.5-5.1)
[2019-11-05 08:19] LABS: Estimated Average Glucose 143 mg/dl; Hemoglobin A1C 6.6 % (4.5-5.6)
[2019-11-05] MEDS ORDERED: ASPIRIN 325 MG ECTAB PO SCH (09:00)
[2019-11-05] MEDS: INSULIN ASPART 100 UNITS/ML 3 ML PEN SC SCH ×4 (09:04→20:40)
--- NOTE | 2019-11-05 09:25 | Orthopedic Progress Note ---
Date of Service November 05, 2019 Assessment & Plan (1) Degenerative joint disease of knee, right: s/p Right TKA POD#1 -ancef x 24 -DVT ppx: SCDs, TEDs, ASA BID -WBAT RLE -PT/OT -PO XR demonstrates a well aligned well fixed prothesis without fracture/dislocation -am labs - as above, hgb 10.1. Patient with ADRIANA Cr 1.79, pre op Cr 1.39, will monitor, IV fluids, avoid nephrotoxic medications, encourage PO intake. Will recheck BMP this afternoon -DC planning - home with Admission and Anticipated Discharge Date Admission Date: November 04, 2019 Subjective Post Operative Progress Note Patient seen laying in bed this a.m. performing exercises, comfortable, denies complaints, pain well controlled, no acute issues. Denies F/C/N/V/SOB/CP. Review of Systems Review of Systems: All systems reviewed & are unremarkable except as noted in HPI & below Constitutional: as per Subjective / HPI Physical Exam Physical Exam: RLE NVSI +EHL/FHL/TA/GS SILT grossly, +2 DP pulse, compartments soft NT, dressing cdi. Constitutional: WD/WN, vitals as above Results & Data ([facility]) Vital Signs (Past 12 Hours) Vital Signs Temp Pulse Resp BP Pulse Ox 11/05/19 07:15 36.9 C 90 16 150/76 H 96 11/05/19 07:06 165/84 H 11/05/19 07:00 36.6 C 93 H 16 97 11/05/19 03:47 36.6 C 93 H 16 144/71 H 93 11/04/19 23:44 36.7 C 95 H 16 148/68 H 93 Laboratory Results 11/05/19 11/05/19 11/05/19 Range/Units 08:58 07:57 07:09 WBC (4.8-10.8) K/uL RBC (4.2-5.4) M/uL Hgb (12.0-16.0) g/dL Hct (37-47) % MCV (80-100) fL MCH (25-34) pg MCHC (32-36) g/dL RDW Std Deviation (36.4-46.3) fL RDW Coeff of Clemencia (11.5-14.5) % Plt Count (130-400) K/uL MPV (7.4-10.4) fL Sodium (136-145) mmol/L Potassium (3.5-5.1) mmol/L Chloride (98-107) mmol/L Carbon Dioxide (21-32) mmol/L Anion Gap (3-11) BUN (7-18) mg/dl Creatinine (0.6-1.2) mg/dl Est Cr Clr Drug Dosing ml/min Est GFR ( Amer) Est GFR (Non-Af Amer) BUN/Creatinine Ratio (10-20) Glucose (70-99) mg/dl POC Glucose 142 H 138 H (70-99) mg/dl Estimat Average Glucose mg/dl Hemoglobin A1c (4.5-5.6) % Calcium (8.5-10.1) mg/dl Beta-Hydroxybutyric Acd (0.2-2.81) mg/dl Hepatitis C Ab Screen Pending 11/05/19 11/05/19 11/05/19 Range/Units 07:09 07:09 07:09 WBC 12.04 H (4.8-10.8) K/uL RBC 3.23 L (4.2-5.4) M/uL Hgb 10.1 L (12.0-16.0) g/dL Hct 29.1 L (37-47) % MCV 90.1 (80-100) fL MCH 31.3 (25-34) pg MCHC 34.7 (32-36) g/dL RDW Std Deviation 48.5 H (36.4-46.3) fL RDW Coeff of Clemencia 14.9 H (11.5-14.5) % Plt Count 233 (130-400) K/uL MPV 8.9 (7.4-10.4) fL Sodium 138 (136-145) mmol/L Potassium 4.6 (3.5-5.1) mmol/L Chloride 109 H (98-107) mmol/L Carbon Dioxide 24 (21-32) mmol/L Anion Gap 5.0 (3-11) BUN 16 (7-18) mg/dl Creatinine 1.39 H D (0.6-1.2) mg/dl Est Cr Clr Drug Dosing 34.4 ml/min Est GFR ( Amer) 43.2 Est GFR (Non-Af Amer) 37.2 BUN/Creatinine Ratio 11.7 (10-20) Glucose 132 H (70-99) mg/dl POC Glucose (70-99) mg/dl Estimat Average Glucose 143 mg/dl Hemoglobin A1c 6.6 H (4.5-5.6) % Calcium 8.6 (8.5-10.1) mg/dl Beta-Hydroxybutyric Acd (0.2-2.81) mg/dl Hepatitis C Ab Screen 11/05/19 11/05/19 11/05/19 Range/Units 06:58 05:57 04:56 WBC (4.8-10.8) K/uL RBC (4.2-5.4) M/uL Hgb (12.0-16.0) g/dL Hct (37-47) % MCV (80-100) fL MCH (25-34) pg MCHC (32-36) g/dL RDW Std Deviation (36.4-46.3) fL RDW Coeff of Clemencia (11.5-14.5) % Plt Count (130-400) K/uL MPV (7.4-10.4) fL Sodium (136-145) mmol/L Potassium (3.5-5.1) mmol/L Chloride (98-107) mmol/L Carbon Dioxide (21-32) mmol/L Anion Gap (3-11) BUN (7-18) mg/dl Creatinine (0.6-1.2) mg/dl Est Cr Clr Drug Dosing ml/min Est GFR ( Amer) Est GFR (Non-Af Amer) BUN/Creatinine Ratio (10-20) Glucose (70-99) mg/dl POC Glucose 157 H 196 H 191 H (70-99) mg/dl Estimat Average Glucose mg/dl Hemoglobin A1c (4.5-5.6) % Calcium (8.5-10.1) mg/dl Beta-Hydroxybutyric Acd (0.2-2.81) mg/dl Hepatitis C Ab Screen 11/05/19 11/05/19 11/05/19 Range/Units 03:56 02:57 01:57 WBC (4.8-10.8) K/uL RBC (4.2-5.4) M/uL Hgb (12.0-16.0) g/dL Hct (37-47) % MCV (80-100) fL MCH (25-34) pg MCHC (32-36) g/dL RDW Std Deviation (36.4-46.3) fL RDW Coeff of Clemencia (11.5-14.5) % Plt Count (130-400) K/uL MPV (7.4-10.4) fL Sodium (136-145) mmol/L Potassium (3.5-5.1) mmol/L Chloride (98-107) mmol/L Carbon Dioxide (21-32) mmol/L Anion Gap (3-11) BUN (7-18) mg/dl Creatinine (0.6-1.2) mg/dl Est Cr Clr Drug Dosing ml/min Est GFR ( Amer) Est GFR (Non-Af Amer) BUN/Creatinine Ratio (10-20) Glucose (70-99) mg/dl POC Glucose 204 H 223 H 255 H (70-99) mg/dl Estimat Average Glucose mg/dl Hemoglobin A1c (4.5-5.6) % Calcium (8.5-10.1) mg/dl Beta-Hydroxybutyric Acd (0.2-2.81) mg/dl Hepatitis C Ab Screen 11/05/19 11/04/19 11/04/19 Range/Units 00:48 23:45 22:29 WBC (4.8-10.8) K/uL RBC (4.2-5.4) M/uL Hgb (12.0-16.0) g/dL Hct (37-47) % MCV (80-100) fL MCH (25-34) pg MCHC (32-36) g/dL RDW Std Deviation (36.4-46.3) fL RDW Coeff of Clemencia (11.5-14.5) % Plt Count (130-400) K/uL MPV (7.4-10.4) fL Sodium (136-145) mmol/L Potassium (3.5-5.1) mmol/L Chloride (98-107) mmol/L Carbon Dioxide (21-32) mmol/L Anion Gap (3-11) BUN (7-18) mg/dl Creatinine (0.6-1.2) mg/dl Est Cr Clr Drug Dosing ml/min Est GFR ( Amer) Est GFR (Non-Af Amer) BUN/Creatinine Ratio (10-20) Glucose (70-99) mg/dl POC Glucose 278 H 304 H* 364 H* (70-99) mg/dl Estimat Average Glucose mg/dl Hemoglobin A1c (4.5-5.6) % Calcium (8.5-10.1) mg/dl Beta-Hydroxybutyric Acd (0.2-2.81) mg/dl Hepatitis C Ab Screen 11/04/19 11/04/19 11/04/19 Range/Units 21:24 20:31 20:28 WBC (4.8-10.8) K/uL RBC (4.2-5.4) M/uL Hgb (12.0-16.0) g/dL Hct (37-47) % MCV (80-100) fL MCH (25-34) pg MCHC (32-36) g/dL RDW Std Deviation (36.4-46.3) fL RDW Coeff of Clemencia (11.5-14.5) % Plt Count (130-400) K/uL MPV (7.4-10.4) fL Sodium 132 L (136-145) mmol/L Potassium 4.7 (3.5-5.1) mmol/L Chloride 101 (98-107) mmol/L Carbon Dioxide 20 L (21-32) mmol/L Anion Gap 10.0 (3-11) BUN 16 (7-18) mg/dl Creatinine 1.79 H (0.6-1.2) mg/dl Est Cr Clr Drug Dosing 26.7 ml/min Est GFR ( Amer) 31.8 Est GFR (Non-Af Amer) 27.4 BUN/Creatinine Ratio 9.1 L (10-20) Glucose 349 H* (70-99) mg/dl POC Glucose 408 H* 453 H* (70-99) mg/dl Estimat Average Glucose mg/dl Hemoglobin A1c (4.5-5.6) % Calcium 8.9 (8.5-10.1) mg/dl Beta-Hydroxybutyric Acd 3.45 H (0.2-2.81) mg/dl Hepatitis C Ab Screen 11/04/19 11/04/19 11/04/19 Range/Units 17:14 17:12 13:34 WBC (4.8-10.8) K/uL RBC (4.2-5.4) M/uL Hgb (12.0-16.0) g/dL Hct (37-47) % MCV (80-100) fL MCH (25-34) pg MCHC (32-36) g/dL RDW Std Deviation (36.4-46.3) fL RDW Coeff of Clemencia (11.5-14.5) % Plt Count (130-400) K/uL MPV (7.4-10.4) fL Sodium (136-145) mmol/L Potassium (3.5-5.1) mmol/L Chloride (98-107) mmol/L Carbon Dioxide (21-32) mmol/L Anion Gap (3-11) BUN (7-18) mg/dl Creatinine (0.6-1.2) mg/dl Est Cr Clr Drug Dosing ml/min Est GFR ( Amer) Est GFR (Non-Af Amer) BUN/Creatinine Ratio (10-20) Glucose (70-99) mg/dl POC Glucose 338 H* 366 H* 221 H (70-99) mg/dl Estimat Average Glucose mg/dl Hemoglobin A1c (4.5-5.6) % Calcium (8.5-10.1) mg/dl Beta-Hydroxybutyric Acd (0.2-2.81) mg/dl Hepatitis C Ab Screen
[2019-11-05] MEDS ORDERED: SODIUM CHLORIDE 0.9% 500 ML IV SCH (09:45)
[2019-11-05] MEDS ORDERED: [UNRECOGNIZED DRUG - REMARK] ONE (10:00)
[2019-11-05] MEDS: ALBUTEROL INH PRN (11:34)
[2019-11-05] MEDS ORDERED: ALBUT/IPRATROP 3MG/0.5MG NEB 3 ML VIAL NEB STA (12:01)
--- NOTE | 2019-11-05 12:11 | Pharmacy Report ---
Pharmacy Glycemic Short Note 2 - Date of Service November 05, 2019 - Glycemic Short BSG Results (Last 24 hours): 11/04/19 11/04/19 11/04/19 13:34 17:12 17:14 Glucose POC Glucose 221 H 366 H* 338 H* 11/04/19 11/04/19 11/04/19 20:28 20:31 21:24 Glucose 349 H* POC Glucose 453 H* 408 H* 11/04/19 11/04/19 11/05/19 22:29 23:45 00:48 Glucose POC Glucose 364 H* 304 H* 278 H 11/05/19 11/05/19 11/05/19 01:57 02:57 03:56 Glucose POC Glucose 255 H 223 H 204 H 11/05/19 11/05/19 11/05/19 04:56 05:57 06:58 Glucose POC Glucose 191 H 196 H 157 H 11/05/19 11/05/19 11/05/19 07:09 07:57 08:58 Glucose 132 H POC Glucose 138 H 142 H 11/05/19 10:06 Glucose POC Glucose 227 H OUTPATIENT ANTIDIABETIC REGIMEN: * Glargine 65 units SQ Q HS * Metformin 1000mg PO BID * Semaglutide 1mg SQ weekly on Sunday * A1c 6.6% 11/05/19 ASSESSMENT: * Type 2 diabetic admitted for R TKA * POD # 1 * BSGs quickly deteriorated yesterday post-op, likely due to pre-op dexamethasone administration in combination with surgical stressors * Insulin drip initiated last evening for BSGs in low 400s. BSGs 130-150s range this AM. PRP reviewed. No metabolic acidosis evident. * Will transition patient off insulin drip this AM as the effects of a single PO dexamethasone dose on insulin resistance typically begin to dissipate after 24-36 hours. Patient may be discharged this afternoon. Will give 20 units NPH this AM to facilitate transition off drip. * Will continue to dose Novolog aggressively until it is evident that insulin resistance decreasing PLAN FOR INPATIENT GLYCEMIC CONTROL: * Hold outpatient oral diabetes medications * Basal insulin * NPH 20 units SQ this AM. Discontinue insulin drip 2 hrs after NPH given. * Lantus 65 units SQ Q HS * Bolus insulin * NovoLog per scale ACHS or Q6hrs while NPO * Goal Range: Low 110 mg/dL - High 140 mg/dL * Correction Factor: 15 mg/dL/unit * Nutritional / Prandial insulin per carb ratio of 1 unit per 5 grams CHO consumed PLAN FOR DISCHARGE: * may resume home regimen if no contraindications present at time of discharge.
--- NOTE | 2019-11-05 12:12 | Hospitalist Consultation ---
Date of Consultation November 05, 2019 Assessment & Plan (1) Acute respiratory failure: Developed acute respiratory failure with hypoxia and hypercapnia late in the morning on 11/04 after receiving a 500 mL normal saline bolus that was given presumably for renal insufficiency She has a history of mildly reduced LVEF of 45% as per cardiology records with nonobstructive mild CAD on cardiac catheterization in 07/2019-most likely this was flash pulmonary edema as well as exacerbation of COPD that caused it Also with a history of moderate obstructive pulmonary disease on PFTs in 10/2019 and a history of left upper lobectomy for lung cancer in 2008 She developed acute hypoxia with pulse ox of 81% on room air and was placed on supplemental O2 and eventually on BiPAP 03/14 and then had good pulse ox Her ABG was 7.24/55/70 on 5 L nasal cannula, repeat 1 hour later on BiPAP was similar pH and PaCO2 but with much improved oxygenation on BiPAP She was given Lasix 20 mg IV x1 Chest x-ray on my read seem consistent with pulmonary edema and chest CT angiogram was negative for large PE but was difficult to interpret due to motion artifact from her tachypnea for smaller PE, however she has no chest pain at all and she is responding to BiPAP, duo nebs, and IV diuresis nicely throughout the day -Transferred to PCU -Continue BiPAP throughout the night and repeat ABG in the morning -Check chest x-ray again in the morning -Started scheduled duo nebs every 6 hours -Appreciate pulmonology consultation -She received 1 dose of IV Solu-Medrol as per pulmonology-want to avoid significant corticosteroid use given recent total knee arthroplasty -Continue budesonide 0.5 mg neb twice daily and formoterol 20 mcg neb twice daily as per pulmonology -We will give another dose of Lasix 20 mg IV x1 this evening -Watch I's and O's, daily weights -Wean off BiPAP likely in the morning and eventually off of supplemental O2 altogether if possible (2) Chronic diastolic CHF (congestive heart failure): With acute on chronic diastolic CHF here with flash pulmonary edema as above With mildly reduced EF on cardiology records as above at 45% With nonobstructive mild CAD on cardiac catheterization 07/2019 -Continue diuretics as needed as above with IV Lasix and restarted home Bumex 0.5 mg p.o. once daily (she had refused her dose on the morning of 11/04 as she did not want to urinate frequently as she thought she was being discharged) -Strict I's and O's, daily weights, low-sodium diet and fluid restriction of 1800 mL's per day was added (3) COPD (chronic obstructive pulmonary disease): Moderate obstruction with good reversibility with bronchodilators as per recent PFTs as an outpatient With acute exacerbation of COPD as above -Treatment as above with duo nebs, Labe and inhaled corticosteroids Give 1 dose of IV Solu-Medrol here (4) Diabetes mellitus, type II: With hyperglycemia here to the 300s due to corticosteroids prior to surgery and now received 1 dose of IV Solu-Medrol here Hemoglobin A1c is usually very well controlled at 6.6% -Holding home Ozempic and metformin -Pharmacy is managing glycemic control Continue basal and bolus insulin (5) HTN (hypertension): Blood pressures are elevated likely due to volume overload -Diuresing with IV Lasix as above -Continue home atenolol (6) Dyslipidemia: Continue statin (7) GERD (gastroesophageal reflux disease): Continue PPI (8) CAD (coronary artery disease): Nonobstructive on cardiac cath from 07/2019 -Continue aspirin, statin, atenolol -With likely microvascular angina, continue Ranexa (9) CKD (chronic kidney disease) stage 3, GFR 30-59 ml/min: Unclear what most recent baseline creatinine is, but has note of CKD stage III in her outpatient records Creatinine was 1.79 after surgery last evening which represents a mild acute kidney injury over baseline in our records of a creatinine of 1.07 from 2018 Creatinine down to 1.39 today and was given IV fluids for hydration as above -Now diuresing with IV Lasix as above Follow BMP Avoid nephrotoxins-avoid NSAIDs for pain control (10) LBBB (left bundle branch block): Chronic Repeat ECG today during episode of acute hypoxia again shows chronic LBBB Troponin was negative (11) Carotid artery stenosis: Noted to be bilateral in outpatient records Follow as an outpatient No history of stroke -Continue aspirin and statin (12) Pulmonary hypertension: Noted to have had a right heart catheterization in the past Likely secondary to pulmonary disease and left-sided dysfunction -Oxygen as needed, diuresis (13) Hypothyroidism: No TSH in our laboratory records, but diagnosis of hypothyroidism as mentioned -Check TSH in the morning -Not on any thyroid hormone replacement at home (14) History of lung cancer: Status post left upper lobectomy Was treated with 6 months of chemotherapy afterwards in 2008 No recurrence and follows with oncology and do boys (15) Current smoker: Encouraged smoking cessation, she is currently smoking about 4 or 5 cigarettes a day (16) S/P total knee arthroplasty: Is postop day #1 from a right TKA Postoperative care as per orthopedic surgery Pain control, DVT prophylaxis, PT/OT, and bowel regimen as per Ortho (17) DVT prophylaxis: SCDs, aspirin 81 mg p.o. twice daily, EDEN hose Disposition-transferred to PCU, continued stay Hospitalist service will continue to follow along History of Present Illness Reason for Consultation: Shortness of breath, hypoxia Requesting Physician: Dr. Marques Attending Physician: Jaxson Marques DO History of Present Illness This patient is a 74-year-old female with history of COPD who continues to smoke daily, lung cancer status post left upper lobectomy and chemotherapy, DM 2, HTN, nonobstructive CAD with stable angina, chronic diastolic CHF with mildly reduced LV function 45%, GERD, hyperlipidemia, CKD stage III, chronic LBBB, hypothyroidism, bilateral carotid artery stenosis, GERD who is here for a right knee total arthroplasty. Hospitalist service was consulted urgently today for sudden onset of dyspnea, hypoxia to 81% on room air. Patient had some renal insufficiency on AM labs and was given 500 mL's of normal saline this morning. The nurse reported that shortly after finishing the IV fluids, the patient went to sit and stand up with physical therapy and was significantly short of breath and wheezing. Her pulse ox was 81% on room air and came up to 91% on 4 L. When I came to see her, she was tachypneic, diffusely with crackles and wheezing. She denied any chest pain or pressure. Denied any lightheadedness, no abdominal pains or nausea. A chest x-ray was obtained which showed pulmonary edema and a possible new right lower lobe infiltrate, an ABG was obtained which was 7.24/50 5/70 on 5 L. She had an ECG which showed a chronic left bundle branch block unchanged from previous. I gave her Lasix 20 mg IV x1 and transferred her down to PCU. She was sent for a CT angiogram of the chest which was difficult to read due to motion artifact, but there were no major PEs and no pneumonia, but with pulmonary edema. Shortly after transfer down to the PCU, she continued to appear in respiratory distress and was placed on BiPAP at 12/6. I consulted the pulmonary team and discussed the case with Pito Saldana and Dr. Garcia. I checked back on her after being on BiPAP for an hour and she appeared much more comfortable, still a bit tachypneic, but was 100% on her pulse ox on FiO2 100%. She had put out 300 mL's in the Harrison catheter at that point since giving the IV Lasix. She was feeling much improved. Allergies Allergy/AdvReac Type Severity Reaction Status Date / Time ampicillin [From Omnipen] Allergy Unknown Rash Verified 11/04/19 06:30 fexofenadine [From Farzana] Allergy Unknown Rash Verified 11/04/19 06:30 lisinopril Allergy Unknown Rash Verified 11/04/19 06:30 nickel Allergy Unknown Rash Verified 11/04/19 06:30 BRAND NAMES NECESSARY Allergy Unknown PT REPORTS Uncoded 10/22/19 15:31 "NEEDS TO TAKE BRAND NAME MEDICIATIONS" Home Medications Home Medications Medication Instructions Recorded Confirmed Type Vitamin B 12 Injection 1,000 mcg UD 10/15/19 11/04/19 History albuterol sulfate 2 inh INHALATION Q4H PRN 10/15/19 11/04/19 History aspirin [Aspir-81] 81 mg PO QAM 10/15/19 11/04/19 History atenolol 100 mg PO BID 10/15/19 11/04/19 History bumetanide 1 mg PO QAM 10/15/19 11/04/19 History cholecalciferol (vitamin D3) 50 mcg PO BID 10/15/19 11/04/19 History [Vitamin D3] coenzyme Q10 [CoQ-10] 100 mg PO BID 10/15/19 11/04/19 History dicyclomine 10 mg PO QID PRN 10/15/19 11/04/19 History esomeprazole magnesium [Nexium] 40 mg PO QAM 10/15/19 11/04/19 History gabapentin [Neurontin] 400 mg PO TID 10/15/19 11/04/19 History insulin glargine [Lantus Solostar 65 unit SUBCUT HS 10/15/19 11/04/19 History U-100 Insulin] magnesium 500 mg PO BID 10/15/19 11/04/19 History metformin 1,000 mg PO BID 10/15/19 11/04/19 History montelukast [Singulair] 10 mg PO QPM 10/15/19 11/04/19 History omega-3 acid ethyl esters [Lovaza] 2 cap PO BID 10/15/19 11/04/19 History ondansetron HCl [Zofran] 4 mg PO UD PRN 10/15/19 11/04/19 History ranolazine [Ranexa] 500 mg PO BID 10/15/19 11/04/19 History rosuvastatin [Crestor] 20 mg PO QPM 10/15/19 11/04/19 History semaglutide [Ozempic] 1 mg SUBCUT WK 10/15/19 11/04/19 History tiotropium bromide [Spiriva with 1 cap INHALATION QAM 10/15/19 11/04/19 History HandiHaler] vit C,J-Gj-nzufw-lutein-zeaxan 1 tab PO BID 10/15/19 11/04/19 History [PreserVision AREDS-2] acetaminophen 1,000 mg PO Q8 PRN #90 tab 11/04/19 Rx oxycodone 5 mg PO Q6H PRN #30 tab MDD 4 11/04/19 Rx sennosides [Senokot] 17.2 mg PO HS PRN #28 tab 11/04/19 Rx aspirin 81 mg PO BID #56 tab 11/05/19 Rx Patient History Medical History (Updated 11/05/19 @ 19:50 by Angela Liao MD) Acid reflux CAD (coronary artery disease) non-obstructive per 07/2019 cardiac cath Carotid artery stenosis Chronic diastolic CHF (congestive heart failure) CKD (chronic kidney disease) stage 3, GFR 30-59 ml/min COPD (chronic obstructive pulmonary disease) Current smoker Diabetes Diabetes mellitus, type II (Chronic) Dyslipidemia (Chronic) GERD (gastroesophageal reflux disease) (Chronic) Hiatal hernia High cholesterol History of back problems History of lung cancer History of skin cancer s/p multiple skin excisions HTN (hypertension) Hypothyroidism IBS (irritable bowel syndrome) LBBB (left bundle branch block) Osteoarthritis Pulmonary hypertension Surgical History (Updated 11/05/19 @ 19:50 by Angela Liao MD) History of appendectomy (Resolved) History of breast biopsy R&L History of cardiac cath 07/2019 - no stents, 2019- no stents History of cataract extraction History of cholecystectomy (Inactive) History of colonoscopy History of endoscopy MULTIPLE History of hysterectomy History of lobectomy of lung LEFT UPPER (9-10 YR AGO) History of lumbar spinal fusion History of lumbar spinal fusion REVISION History of surgery R ANKLE, 2 YR OLD History of total right knee replacement S/P total knee arthroplasty Family History Father Family history of lung cancer Mother Family history of lung cancer Sister Family history of diabetes mellitus Sister Family history of diabetes mellitus Brother Family history of diabetes mellitus Uncle Family history of diabetes mellitus Uncle Family history of diabetes mellitus Social History Smoking Status: Current every day smoker Tobacco Type: Cigarettes Cigarettes Per Day: 3-4 CIGS/DAILY; Do You Dip or Chew Tobacco: No; Hx Alcohol Use: No Hx Substance Use: No Preferred Language: Welsh Communication Ability: Effective Vice President Industrial Relations Required: No Beliefs That Will Affect Care: Restoration Restoration Beliefs: TENRIISM marital status: Current Living Situation: Spouse Other Information That Helps Us Care for You: No Feels Safe at Home: Yes Review of Systems Review of Systems: All systems reviewed & are unremarkable except as noted in HPI & below No fevers or chills, no headache or lightheadedness, is having a mild cough productive of brown sputum Urine seems darker than normal but no dysuria or urinary urgency or frequency, no abdominal pain Physical Exam Constitutional: WD/WN, vitals as above + acute distress and + ill appearing; not lethargic Eyes: PERRL, conjunctivae normal, anicteric sclerae ENMT: external ear and nose normal, oropharynx normal Neck: trachea midline, no thyromegaly Respiratory: + labored breathing, + uses accessory muscles and + tachypneic Auscultation: + crackles (Bilateral middle and lower lung aviles) and + wheezes (Diffusely); no rhonchi Cardiovascular: RRR, no murmur, no edema Chest (Breasts): Chest: normal inspection of chest Gastrointestinal (Abdomen): normal bowel sounds, soft, nontender, no hepatosplenomegaly Musculoskeletal: Extremities: + extremities abnormal to inspection (Right lower extremity with Frankie wrap and dressing in place), no cyanosis and no clubbing Skin: no rashes, warm and dry Neurologic: moves all extremities and awake; no focal motor deficits Psychiatric: A+Ox3, euthymic affect Lymphatic: no lymphedema Results & Data Results & Data ([facility]) Vital Signs (Past 12 Hours) Vital Signs Temp Pulse Resp BP Pulse Ox 11/05/19 11:35 93 H 22 168/87 H 94 11/05/19 07:15 36.9 C 90 16 150/76 H 96 11/05/19 07:06 165/84 H 11/05/19 07:00 36.6 C 93 H 16 97 11/05/19 03:47 36.6 C 93 H 16 144/71 H 93 Laboratory Results 11/05/19 11/05/19 11/05/19 Range/Units 16:25 14:55 14:01 WBC (4.8-10.8) K/uL RBC (4.2-5.4) M/uL Hgb (12.0-16.0) g/dL Hct (37-47) % MCV (80-100) fL MCH (25-34) pg MCHC (32-36) g/dL RDW Std Deviation (36.4-46.3) fL RDW Coeff of Clemencia (11.5-14.5) % Plt Count (130-400) K/uL MPV (7.4-10.4) fL Sample Site R Radial POC pH 7.25 L (7.35-7.45) POC pCO2 56 H (35-46) mmHg POC pO2 363 H (80-95) mmHg POC HCO3 25 H (19-24) emerson/L POC Total CO2 26 (24-31) mmol/L POC Base Excess -3.0 (-9-1.8) emerson/L ABG pH (7.35-7.45) ABG pCO2 (35-46) mmHg ABG pO2 (80-95) mmHg ABG HCO3 (19-24) mmol/L POC ABG O2 Sat 100.0 H (90-95) % ABG O2 Saturation (90-95) % ABG Base Excess (-9-1.8) mEq/L Javier Test Pass (Pos) Barometric Pressure mm/Hg Oxygen Given O2 Delivery Device BIPAP POC O2 Rate 14 POC FiO2 100 % IPAP 12 Sodium 132 L (136-145) mmol/L Potassium 4.4 (3.5-5.1) mmol/L Chloride 103 (98-107) mmol/L Carbon Dioxide 22 (21-32) mmol/L Anion Gap 7.0 (3-11) BUN 18 (7-18) mg/dl Creatinine 1.33 H (0.6-1.2) mg/dl Est Cr Clr Drug Dosing 36.0 ml/min Est GFR ( Amer) 45.5 Est GFR (Non-Af Amer) 39.3 BUN/Creatinine Ratio 13.8 (10-20) Glucose 247 H (70-99) mg/dl POC Glucose 207 H (70-99) mg/dl Estimat Average Glucose mg/dl Hemoglobin A1c (4.5-5.6) % Calcium 8.7 (8.5-10.1) mg/dl Magnesium 2.4 (1.8-2.4) mg/dl Troponin I < 0.015 (0-0.045) ng/ml Beta-Hydroxybutyric Acd (0.2-2.81) mg/dl Hepatitis C Ab Screen (Neg) 11/05/19 11/05/19 11/05/19 Range/Units 12:51 12:18 10:06 WBC (4.8-10.8) K/uL RBC (4.2-5.4) M/uL Hgb (12.0-16.0) g/dL Hct (37-47) % MCV (80-100) fL MCH (25-34) pg MCHC (32-36) g/dL RDW Std Deviation (36.4-46.3) fL RDW Coeff of Clemencia (11.5-14.5) % Plt Count (130-400) K/uL MPV (7.4-10.4) fL Sample Site POC pH (7.35-7.45) POC pCO2 (35-46) mmHg POC pO2 (80-95) mmHg POC HCO3 (19-24) emerson/L POC Total CO2 (24-31) mmol/L POC Base Excess (-9-1.8) emerson/L ABG pH 7.24 L (7.35-7.45) ABG pCO2 55 H (35-46) mmHg ABG pO2 70 L (80-95) mmHg ABG HCO3 23 (19-24) mmol/L POC ABG O2 Sat (90-95) % ABG O2 Saturation 89.6 L (90-95) % ABG Base Excess -4.2 (-9-1.8) mEq/L Javier Test Pos (Pos) Barometric Pressure 731.0 mm/Hg Oxygen Given 5 L O2 Delivery Device POC O2 Rate POC FiO2 % IPAP Sodium (136-145) mmol/L Potassium (3.5-5.1) mmol/L Chloride (98-107) mmol/L Carbon Dioxide (21-32) mmol/L Anion Gap (3-11) BUN (7-18) mg/dl Creatinine (0.6-1.2) mg/dl Est Cr Clr Drug Dosing ml/min Est GFR ( Amer) Est GFR (Non-Af Amer) BUN/Creatinine Ratio (10-20) Glucose (70-99) mg/dl POC Glucose 249 H 227 H (70-99) mg/dl Estimat Average Glucose mg/dl Hemoglobin A1c (4.5-5.6) % Calcium (8.5-10.1) mg/dl Magnesium (1.8-2.4) mg/dl Troponin I (0-0.045) ng/ml Beta-Hydroxybutyric Acd (0.2-2.81) mg/dl Hepatitis C Ab Screen (Neg) 11/05/19 11/05/19 11/05/19 Range/Units 08:58 07:57 07:09 WBC (4.8-10.8) K/uL RBC (4.2-5.4) M/uL Hgb (12.0-16.0) g/dL Hct (37-47) % MCV (80-100) fL MCH (25-34) pg MCHC (32-36) g/dL RDW Std Deviation (36.4-46.3) fL RDW Coeff of Clemencia (11.5-14.5) % Plt Count (130-400) K/uL MPV (7.4-10.4) fL Sample Site POC pH (7.35-7.45) POC pCO2 (35-46) mmHg POC pO2 (80-95) mmHg POC HCO3 (19-24) emerson/L POC Total CO2 (24-31) mmol/L POC Base Excess (-9-1.8) emerson/L ABG pH (7.35-7.45) ABG pCO2 (35-46) mmHg ABG pO2 (80-95) mmHg ABG HCO3 (19-24) mmol/L POC ABG O2 Sat (90-95) % ABG O2 Saturation (90-95) % ABG Base Excess (-9-1.8) mEq/L Javier Test (Pos) Barometric Pressure mm/Hg Oxygen Given O2 Delivery Device POC O2 Rate POC FiO2 % IPAP Sodium (136-145) mmol/L Potassium (3.5-5.1) mmol/L Chloride (98-107) mmol/L Carbon Dioxide (21-32) mmol/L Anion Gap (3-11) BUN (7-18) mg/dl Creatinine (0.6-1.2) mg/dl Est Cr Clr Drug Dosing ml/min Est GFR ( Amer) Est GFR (Non-Af Amer) BUN/Creatinine Ratio (10-20) Glucose (70-99) mg/dl POC Glucose 142 H 138 H (70-99) mg/dl Estimat Average Glucose mg/dl Hemoglobin A1c (4.5-5.6) % Calcium (8.5-10.1) mg/dl Magnesium (1.8-2.4) mg/dl Troponin I (0-0.045) ng/ml Beta-Hydroxybutyric Acd (0.2-2.81) mg/dl Hepatitis C Ab Screen Neg (Neg) 11/05/19 11/05/19 11/05/19 Range/Units 07:09 07:09 07:09 WBC 12.04 H (4.8-10.8) K/uL RBC 3.23 L (4.2-5.4) M/uL Hgb 10.1 L (12.0-16.0) g/dL Hct 29.1 L (37-47) % MCV 90.1 (80-100) fL MCH 31.3 (25-34) pg MCHC 34.7 (32-36) g/dL RDW Std Deviation 48.5 H (36.4-46.3) fL RDW Coeff of Clemencia 14.9 H (11.5-14.5) % Plt Count 233 (130-400) K/uL MPV 8.9 (7.4-10.4) fL Sample Site POC pH (7.35-7.45) POC pCO2 (35-46) mmHg POC pO2 (80-95) mmHg POC HCO3 (19-24) emerson/L POC Total CO2 (24-31) mmol/L POC Base Excess (-9-1.8) emerson/L ABG pH (7.35-7.45) ABG pCO2 (35-46) mmHg ABG pO2 (80-95) mmHg ABG HCO3 (19-24) mmol/L POC ABG O2 Sat (90-95) % ABG O2 Saturation (90-95) % ABG Base Excess (-9-1.8) mEq/L Javier Test (Pos) Barometric Pressure mm/Hg Oxygen Given O2 Delivery Device POC O2 Rate POC FiO2 % IPAP Sodium 138 (136-145) mmol/L Potassium 4.6 (3.5-5.1) mmol/L Chloride 109 H (98-107) mmol/L Carbon Dioxide 24 (21-32) mmol/L Anion Gap 5.0 (3-11) BUN 16 (7-18) mg/dl Creatinine 1.39 H D (0.6-1.2) mg/dl Est Cr Clr Drug Dosing 34.4 ml/min Est GFR ( Amer) 43.2 Est GFR (Non-Af Amer) 37.2 BUN/Creatinine Ratio 11.7 (10-20) Glucose 132 H (70-99) mg/dl POC Glucose (70-99) mg/dl Estimat Average Glucose 143 mg/dl Hemoglobin A1c 6.6 H (4.5-5.6) % Calcium 8.6 (8.5-10.1) mg/dl Magnesium (1.8-2.4) mg/dl Troponin I (0-0.045) ng/ml Beta-Hydroxybutyric Acd (0.2-2.81) mg/dl Hepatitis C Ab Screen (Neg) 11/05/19 11/05/19 11/05/19 Range/Units 06:58 05:57 04:56 WBC (4.8-10.8) K/uL RBC (4.2-5.4) M/uL Hgb (12.0-16.0) g/dL Hct (37-47) % MCV (80-100) fL MCH (25-34) pg MCHC (32-36) g/dL RDW Std Deviation (36.4-46.3) fL RDW Coeff of Clemencia (11.5-14.5) % Plt Count (130-400) K/uL MPV (7.4-10.4) fL Sample Site POC pH (7.35-7.45) POC pCO2 (35-46) mmHg POC pO2 (80-95) mmHg POC HCO3 (19-24) emerson/L POC Total CO2 (24-31) mmol/L POC Base Excess (-9-1.8) emerson/L ABG pH (7.35-7.45) ABG pCO2 (35-46) mmHg ABG pO2 (80-95) mmHg ABG HCO3 (19-24) mmol/L POC ABG O2 Sat (90-95) % ABG O2 Saturation (90-95) % ABG Base Excess (-9-1.8) mEq/L Javier Test (Pos) Barometric Pressure mm/Hg Oxygen Given O2 Delivery Device POC O2 Rate POC FiO2 % IPAP Sodium (136-145) mmol/L Potassium (3.5-5.1) mmol/L Chloride (98-107) mmol/L Carbon Dioxide (21-32) mmol/L Anion Gap (3-11) BUN (7-18) mg/dl Creatinine (0.6-1.2) mg/dl Est Cr Clr Drug Dosing ml/min Est GFR ( Amer) Est GFR (Non-Af Amer) BUN/Creatinine Ratio (10-20) Glucose (70-99) mg/dl POC Glucose 157 H 196 H 191 H (70-99) mg/dl Estimat Average Glucose mg/dl Hemoglobin A1c (4.5-5.6) % Calcium (8.5-10.1) mg/dl Magnesium (1.8-2.4) mg/dl Troponin I (0-0.045) ng/ml Beta-Hydroxybutyric Acd (0.2-2.81) mg/dl Hepatitis C Ab Screen (Neg) 11/05/19 11/05/19 11/05/19 Range/Units 03:56 02:57 01:57 WBC (4.8-10.8) K/uL RBC (4.2-5.4) M/uL Hgb (12.0-16.0) g/dL Hct (37-47) % MCV (80-100) fL MCH (25-34) pg MCHC (32-36) g/dL RDW Std Deviation (36.4-46.3) fL RDW Coeff of Clemencia (11.5-14.5) % Plt Count (130-400) K/uL MPV (7.4-10.4) fL Sample Site POC pH (7.35-7.45) POC pCO2 (35-46) mmHg POC pO2 (80-95) mmHg POC HCO3 (19-24) emerson/L POC Total CO2 (24-31) mmol/L POC Base Excess (-9-1.8) emerson/L ABG pH (7.35-7.45) ABG pCO2 (35-46) mmHg ABG pO2 (80-95) mmHg ABG HCO3 (19-24) mmol/L POC ABG O2 Sat (90-95) % ABG O2 Saturation (90-95) % ABG Base Excess (-9-1.8) mEq/L Javier Test (Pos) Barometric Pressure mm/Hg Oxygen Given O2 Delivery Device POC O2 Rate POC FiO2 % IPAP Sodium (136-145) mmol/L Potassium (3.5-5.1) mmol/L Chloride (98-107) mmol/L Carbon Dioxide (21-32) mmol/L Anion Gap (3-11) BUN (7-18) mg/dl Creatinine (0.6-1.2) mg/dl Est Cr Clr Drug Dosing ml/min Est GFR ( Amer) Est GFR (Non-Af Amer) BUN/Creatinine Ratio (10-20) Glucose (70-99) mg/dl POC Glucose 204 H 223 H 255 H (70-99) mg/dl Estimat Average Glucose mg/dl Hemoglobin A1c (4.5-5.6) % Calcium (8.5-10.1) mg/dl Magnesium (1.8-2.4) mg/dl Troponin I (0-0.045) ng/ml Beta-Hydroxybutyric Acd (0.2-2.81) mg/dl Hepatitis C Ab Screen (Neg) 11/05/19 11/04/19 11/04/19 Range/Units 00:48 23:45 22:29 WBC (4.8-10.8) K/uL RBC (4.2-5.4) M/uL Hgb (12.0-16.0) g/dL Hct (37-47) % MCV (80-100) fL MCH (25-34) pg MCHC (32-36) g/dL RDW Std Deviation (36.4-46.3) fL RDW Coeff of Clemencia (11.5-14.5) % Plt Count (130-400) K/uL MPV (7.4-10.4) fL Sample Site POC pH (7.35-7.45) POC pCO2 (35-46) mmHg POC pO2 (80-95) mmHg POC HCO3 (19-24) emerson/L POC Total CO2 (24-31) mmol/L POC Base Excess (-9-1.8) emerson/L ABG pH (7.35-7.45) ABG pCO2 (35-46) mmHg ABG pO2 (80-95) mmHg ABG HCO3 (19-24) mmol/L POC ABG O2 Sat (90-95) % ABG O2 Saturation (90-95) % ABG Base Excess (-9-1.8) mEq/L Javier Test (Pos) Barometric Pressure mm/Hg Oxygen Given O2 Delivery Device POC O2 Rate POC FiO2 % IPAP Sodium (136-145) mmol/L Potassium (3.5-5.1) mmol/L Chloride (98-107) mmol/L Carbon Dioxide (21-32) mmol/L Anion Gap (3-11) BUN (7-18) mg/dl Creatinine (0.6-1.2) mg/dl Est Cr Clr Drug Dosing ml/min Est GFR ( Amer) Est GFR (Non-Af Amer) BUN/Creatinine Ratio (10-20) Glucose (70-99) mg/dl POC Glucose 278 H 304 H* 364 H* (70-99) mg/dl Estimat Average Glucose mg/dl Hemoglobin A1c (4.5-5.6) % Calcium (8.5-10.1) mg/dl Magnesium (1.8-2.4) mg/dl Troponin I (0-0.045) ng/ml Beta-Hydroxybutyric Acd (0.2-2.81) mg/dl Hepatitis C Ab Screen (Neg) 11/04/19 11/04/19 11/04/19 Range/Units 21:24 20:31 20:28 WBC (4.8-10.8) K/uL RBC (4.2-5.4) M/uL Hgb (12.0-16.0) g/dL Hct (37-47) % MCV (80-100) fL MCH (25-34) pg MCHC (32-36) g/dL RDW Std Deviation (36.4-46.3) fL RDW Coeff of Clemencia (11.5-14.5) % Plt Count (130-400) K/uL MPV (7.4-10.4) fL Sample Site POC pH (7.35-7.45) POC pCO2 (35-46) mmHg POC pO2 (80-95) mmHg POC HCO3 (19-24) emerson/L POC Total CO2 (24-31) mmol/L POC Base Excess (-9-1.8) emerson/L ABG pH (7.35-7.45) ABG pCO2 (35-46) mmHg ABG pO2 (80-95) mmHg ABG HCO3 (19-24) mmol/L POC ABG O2 Sat (90-95) % ABG O2 Saturation (90-95) % ABG Base Excess (-9-1.8) mEq/L Javier Test (Pos) Barometric Pressure mm/Hg Oxygen Given O2 Delivery Device POC O2 Rate POC FiO2 % IPAP Sodium 132 L (136-145) mmol/L Potassium 4.7 (3.5-5.1) mmol/L Chloride 101 (98-107) mmol/L Carbon Dioxide 20 L (21-32) mmol/L Anion Gap 10.0 (3-11) BUN 16 (7-18) mg/dl Creatinine 1.79 H (0.6-1.2) mg/dl Est Cr Clr Drug Dosing 26.7 ml/min Est GFR ( Amer) 31.8 Est GFR (Non-Af Amer) 27.4 BUN/Creatinine Ratio 9.1 L (10-20) Glucose 349 H* (70-99) mg/dl POC Glucose 408 H* 453 H* (70-99) mg/dl Estimat Average Glucose mg/dl Hemoglobin A1c (4.5-5.6) % Calcium 8.9 (8.5-10.1) mg/dl Magnesium (1.8-2.4) mg/dl Troponin I (0-0.045) ng/ml Beta-Hydroxybutyric Acd 3.45 H (0.2-2.81) mg/dl Hepatitis C Ab Screen (Neg) 11/04/19 11/04/19 Range/Units 17:14 17:12 WBC (4.8-10.8) K/uL RBC (4.2-5.4) M/uL Hgb (12.0-16.0) g/dL Hct (37-47) % MCV (80-100) fL MCH (25-34) pg MCHC (32-36) g/dL RDW Std Deviation (36.4-46.3) fL RDW Coeff of Clemencia (11.5-14.5) % Plt Count (130-400) K/uL MPV (7.4-10.4) fL Sample Site POC pH (7.35-7.45) POC pCO2 (35-46) mmHg POC pO2 (80-95) mmHg POC HCO3 (19-24) emerson/L POC Total CO2 (24-31) mmol/L POC Base Excess (-9-1.8) emerson/L ABG pH (7.35-7.45) ABG pCO2 (35-46) mmHg ABG pO2 (80-95) mmHg ABG HCO3 (19-24) mmol/L POC ABG O2 Sat (90-95) % ABG O2 Saturation (90-95) % ABG Base Excess (-9-1.8) mEq/L Javier Test (Pos) Barometric Pressure mm/Hg Oxygen Given O2 Delivery Device POC O2 Rate POC FiO2 % IPAP Sodium (136-145) mmol/L Potassium (3.5-5.1) mmol/L Chloride (98-107) mmol/L Carbon Dioxide (21-32) mmol/L Anion Gap (3-11) BUN (7-18) mg/dl Creatinine (0.6-1.2) mg/dl Est Cr Clr Drug Dosing ml/min Est GFR ( Amer) Est GFR (Non-Af Amer) BUN/Creatinine Ratio (10-20) Glucose (70-99) mg/dl POC Glucose 338 H* 366 H* (70-99) mg/dl Estimat Average Glucose mg/dl Hemoglobin A1c (4.5-5.6) % Calcium (8.5-10.1) mg/dl Magnesium (1.8-2.4) mg/dl Troponin I (0-0.045) ng/ml Beta-Hydroxybutyric Acd (0.2-2.81) mg/dl Hepatitis C Ab Screen (Neg) Diagnostic Findings Chest x-ray image personally reviewed by me and agree with the following report: XR chest 1V portable CLINICAL HISTORY: hypoxia, SOB dyspnea COMPARISON STUDY: 10/22/2019 FINDINGS: Interval interstitial infiltrate right base. Mild stable cardiomegaly. Lungs otherwise are clear. IMPRESSION: Mild interstitial infiltrate right base. CT angiogram chest: CT ANGIOGRAPHY OF THE CHEST, PULMONARY EMBOLUS PROTOCOL CLINICAL HISTORY: Chest pain. Shortness of breath. COMPARISON STUDY: Chest radiograph October 22, 2019 and November 05, 2019. TECHNIQUE: Following IV administration of 118 mL of Optiray-320, helical axial images of the chest were obtained utilizing the pulmonary embolus protocol. Maximal intensity projections and sagittal and coronal reformats were viewed on an independent 3D workstation. IV contrast was administered without complication. Automated exposure control was utilized for the study. A dose lowering technique was utilized adhering to the principles of ALARA. CT DOSE: 684.81 mGy.cm FINDINGS: No pulmonary emboli are identified although the segmental and subsegmental pulmonary arteries are suboptimally assessed due to respiratory motion. The heart is moderately enlarged. Moderate coronary artery calcification is noted. There is no pericardial effusion. There are small bilateral pleural effusions. No pneumothorax is present. Interlobular septal thickening is noted. There are are additional alveolar opacities the right lower lobe and the left lower lung. The patient status post left lower lobectomy. No enlarged axillary, mediastinal or hilar lymph nodes are present. Postoperative findings within the left chest wall are noted. Upper abdomen is unremarkable. IMPRESSION: 1. No pulmonary emboli identified although segmental and subsegmental pulmonary arteries suboptimally assessed due to respiratory motion. 2. Moderate interstitial pulmonary edema. Right lower lobe and left lower lung alveolar opacities which may reflect superimposed pneumonia or alveolar edema. 3. Small bilateral pleural effusions. 4. Status post left lower lobectomy. ECG Additional Comments: ECG 11/05/2019 at 1233 with normal sinus rhythm, rate 97, and LBBB, unchanged PG Care Time/CCT Total # of Minutes Spent Total Time Spent with Patient: Total time spent is greater than 50% in coordination of care (as documented) at patient's floor/unit and/or counseling patient: Coding Level of Care Code 36121 Inpt Consult Level 4 Diagnoses Acute respiratory failure J96.00 Chronic diastolic CHF (congestive heart failure) I50.32 COPD (chronic obstructive pulmonary disease) J44.9 Diabetes mellitus, type II E11.9 HTN (hypertension) I10 Dyslipidemia E78.5 GERD (gastroesophageal reflux disease) K21.9 CAD (coronary artery disease) I25.10 CKD (chronic kidney disease) stage 3, GFR 30-59 ml/min N18.3 LBBB (left bundle branch block) I44.7 Carotid artery stenosis I65.29 Pulmonary hypertension I27.20 Hypothyroidism E03.9 History of lung cancer Z85.118 Current smoker F17.200 S/P total knee arthroplasty Z96.659 DVT prophylaxis Z29.9
[2019-11-05] MEDS ORDERED: FUROSEMIDE 20 MG in SYRINGE 0 ML IV ONE ×2 (12:15→17:00)
--- NOTE | 2019-11-05 12:21 | XRay Report ---
XR chest 1V portable CLINICAL HISTORY: hypoxia, SOB dyspnea COMPARISON STUDY: 10/22/2019 FINDINGS: Interval interstitial infiltrate right base. Mild stable cardiomegaly. Lungs otherwise are clear. IMPRESSION: Mild interstitial infiltrate right base. ACT 112: Negative or not required by law. The above report was generated using voice recognition software. It may contain grammatical, syntax or spelling errors. Electronically signed by: Brandon Servin M.D. 11/05/2019 12:19 PM
[2019-11-05 13:00] LABS: Base Excess ABG -4.2 mEq/L (-9-1.8); HCO3 ABG 23 mmol/L (19-24); Oxygen Saturation ABG 89.6 % (90-95); PCO2 ABG 55 mmHg (35-46); PO2 ABG 70 mmHg (80-95); pH ABG 7.24 (7.35-7.45)
[2019-11-05 13:01] LABS: Allen Test Pos (Pos)
[2019-11-05] MEDS ORDERED: OPTIRAY 320 125ml IV PRN (13:05)
--- NOTE | 2019-11-05 13:21 | CT Scan Report ---
CT ANGIOGRAPHY OF THE CHEST, PULMONARY EMBOLUS PROTOCOL CLINICAL HISTORY: Chest pain. Shortness of breath. COMPARISON STUDY: Chest radiograph October 22, 2019 and November 05, 2019. TECHNIQUE: Following IV administration of 118 mL of Optiray-320, helical axial images of the chest we re obtained utilizing the pulmonary embolus protocol. Maximal intensity projections and sagittal and coronal reformats were viewed on an independent 3D workstation. IV contrast was administered withou t complication. Automated exposure control was utilized for the study. A dose lowering technique wa s utilized adhering to the principles of ALARA. CT DOSE: 684.81 mGy.cm FINDINGS: No pulmonary emboli are identified although the segmental and subsegmental pulmonary arter ies are suboptimally assessed due to respiratory motion. The heart is moderately enlarged. Moderate c oronary artery calcification is noted. There is no pericardial effusion. There are small bilateral pl eural effusions. No pneumothorax is present. Interlobular septal thickening is noted. There are are a dditional alveolar opacities the right lower lobe and the left lower lung. The patient status post le ft lower lobectomy. No enlarged axillary, mediastinal or hilar lymph nodes are present. Postoperative findings within the left chest wall are noted. Upper abdomen is unremarkable. IMPRESSION: 1. No pulmonary emboli identified although segmental and subsegmental pulmonary arteries suboptimally assessed due to respiratory motion. 2. Moderate interstitial pulmonary edema. Right lower lobe and left lower lung alveolar opacities whi ch may reflect superimposed pneumonia or alveolar edema. 3. Small bilateral pleural effusions. 4. Status post left lower lobectomy. ACT 112: Negative or not required by law. Electronically signed by: Karlos Edwards M.D. 11/05/2019 1:19 PM
[2019-11-05 14:31] LABS: BUN Creatinine Ratio 13.8 (10-20); Blood Urea Nitrogen 18 mg/dl (7-18); Calcium 8.7 mg/dl (8.5-10.1); Carbon Dioxide 22 mmol/L (21-32); Chloride 103 mmol/L (98-107); Est GFR (African American) 45.5; Est GFR (Non-African American) 39.3; Glucose 247 mg/dl (70-99); Magnesium 2.4 mg/dl (1.8-2.4); Potassium 4.4 mmol/L (3.5-5.1); Sodium 132 mmol/L (136-145)
[2019-11-05 14:36] LABS: Troponin I < 0.015 ng/ml (0-0.045)
[2019-11-05] MEDS ORDERED: FORMOTEROL 20 MCG/2 ML VIAL NEB PRN (15:00)
[2019-11-05] MEDS: ALBUT/IPRATROP 3MG/0.5MG NEB 3 ML VIAL NEB SCH ×2 (15:06→19:13)
[2019-11-05] MEDS ORDERED: methylPREDNISolone 125 MG in SYRINGE 0 ML IV ONE (15:15)
[2019-11-05 15:26] LABS: iSTAT Allen Test Pass; iSTAT Arterial Blood Gas HCO3 25 meg/L (19-24); iSTAT Arterial Blood Gas pCO2 56 mmHg (35-46); iSTAT Arterial Blood Gas pH 7.25 (7.35-7.45); iSTAT Arterial Blood Gas pO2 363 mmHg (80-95); iSTAT Carbon Dioxide 26 mmol/L (24-31); iSTAT FiO2 100 %; iSTAT Site R Radial
--- NOTE | 2019-11-05 15:36 | Pulmonary Consultation ---
Date of Consultation November 05, 2019 Assessment & Plan (1) Acute respiratory failure: Patient was being prepared for discharge today and received a 500 cc bolus of fluid and went into flash pulmonary edema Patient was placed on BiPAP at 12/6 with an FiO2 of 100% and improved significantly within the first hour ABG was drawn and patient was found to be acidotic and hypercapnic Repeat ABG in 90 minutes was unchanged Patient will remain on telemetry and stay on BiPAP tonight at 12/6 with an FiO2 of 30% We did treat the patient with formoterol, budesonide, and a single dose of Solu- Medrol at 125 mg IV We will continue with the formoterol and budesonide scheduled but will hold further doses of steroids secondary to diabetes and random glucose of 245 (2) COPD (chronic obstructive pulmonary disease): Most recent pulmonary function testing was done October 27, 2019 and [place] revealing moderate obstructive disease Patient does follow with a steel erecting pusher and is currently receiving albuterol HFA as needed, Spiriva, Bumetanide 1 mg daily and Singulair. We will refer patient back to her regular steel erecting pusher on discharge Patient reports that she quit smoking 14 months ago We will continue to encourage smoking cessation (3) History of lung cancer: Patient with history of lung cancer in 2008 and status post left upper lobectomy Received adjuvant chemotherapy of unknown agent Patient reports no recurrent disease Refer back to usual steel erecting pusher to follow (4) HTN (hypertension): Patient currently on atenolol 100 mg twice daily and ranolazine Blood pressure was elevated on arrival in the unit After treating with furosemide blood pressure corrected moderately Continue to monitor on telemetry Thank you for including us in the care of this patient. We will continue to follow along with you. Please refer to Dr. Garcia's addendum for further recommendations and corrections. Supervising Physician Co-Signing Physician Notes Seen and examined. Agree with A/P as noted by BUBBA Saldana. History of Present Illness Attending Physician: Jaxson Marques DO History of Present Illness Attending: Dr. Garcia Is a 74-year-old female that was admitted 11/04/[address] Marques for right total knee arthroplasty. She went through the procedure well and was being set for discharge today. She received a bolus of IV fluid and went into flash pulmonary edema. She was transferred to the CT scanning area for a CT of the chest to rule out pulmonary emboli and then transferred to room 101 in the intensive care unit for telemetry monitoring. The patient was put on BiPAP 03/14 with an FiO2 of 100% and given 20 mg of IV furosemide. She quickly put out 500 cc of straw-colored urine with no evidence of hematuria. Within 45 minutes of arrival in ICU patient looks much better and was able to give full history without difficulty. She denies any fever chills. She has no nausea or vomiting. Pain is well controlled in her right knee. She has no back pain or flank pain. She denies any calf pain. The patient denies previous history of DVT or pulmonary embolus. She is a prior smoker but states that she quit smoking 14 months ago. She does not use any other recreational drug or ethanol. She has no other acute complaints. The patient has a past medical history including breast cancer in 2008 with a left upper lobe lobectomy. She states that she did receive adjuvant care of chemotherapy but is unaware of the agent. She has further past medical history including GERD coronary artery disease, COPD with moderate disease, diabetes mellitus type 2, dyslipidemia, hypertension, irritable bowel syndrome, osteoarthritis, hiatal hernia, history of cardiac catheterization with nonobstructive disease and no stent placement. Allergies Allergy/AdvReac Type Severity Reaction Status Date / Time ampicillin [From Omnipen] Allergy Unknown Rash Verified 11/04/19 06:30 fexofenadine [From Farzana] Allergy Unknown Rash Verified 11/04/19 06:30 lisinopril Allergy Unknown Rash Verified 11/04/19 06:30 nickel Allergy Unknown Rash Verified 11/04/19 06:30 BRAND NAMES NECESSARY Allergy Unknown PT REPORTS Uncoded 10/22/19 15:31 "NEEDS TO TAKE BRAND NAME MEDICIATIONS" Home Medications Home Medications Medication Instructions Recorded Confirmed Type Vitamin B 12 Injection 1,000 mcg UD 10/15/19 11/04/19 History albuterol sulfate 2 inh INHALATION Q4H PRN 10/15/19 11/04/19 History aspirin [Aspir-81] 81 mg PO QAM 10/15/19 11/04/19 History atenolol 100 mg PO BID 10/15/19 11/04/19 History bumetanide 1 mg PO QAM 10/15/19 11/04/19 History cholecalciferol (vitamin D3) 50 mcg PO BID 10/15/19 11/04/19 History [Vitamin D3] coenzyme Q10 [CoQ-10] 100 mg PO BID 10/15/19 11/04/19 History dicyclomine 10 mg PO QID PRN 10/15/19 11/04/19 History esomeprazole magnesium [Nexium] 40 mg PO QAM 10/15/19 11/04/19 History gabapentin [Neurontin] 400 mg PO TID 10/15/19 11/04/19 History insulin glargine [Lantus Solostar 65 unit SUBCUT HS 10/15/19 11/04/19 History U-100 Insulin] magnesium 500 mg PO BID 10/15/19 11/04/19 History metformin 1,000 mg PO BID 10/15/19 11/04/19 History montelukast [Singulair] 10 mg PO QPM 10/15/19 11/04/19 History omega-3 acid ethyl esters [Lovaza] 2 cap PO BID 10/15/19 11/04/19 History ondansetron HCl [Zofran] 4 mg PO UD PRN 10/15/19 11/04/19 History ranolazine [Ranexa] 500 mg PO BID 10/15/19 11/04/19 History rosuvastatin [Crestor] 20 mg PO QPM 10/15/19 11/04/19 History semaglutide [Ozempic] 1 mg SUBCUT WK 10/15/19 11/04/19 History tiotropium bromide [Spiriva with 1 cap INHALATION QAM 10/15/19 11/04/19 History HandiHaler] vit C,J-Dj-nsxwk-lutein-zeaxan 1 tab PO BID 10/15/19 11/04/19 History [PreserVision AREDS-2] acetaminophen 1,000 mg PO Q8 PRN #90 tab 11/04/19 Rx oxycodone 5 mg PO Q6H PRN #30 tab MDD 4 11/04/19 Rx sennosides [Senokot] 17.2 mg PO HS PRN #28 tab 11/04/19 Rx aspirin 81 mg PO BID #56 tab 11/05/19 Rx Patient History Medical History (Updated 11/05/19 @ 19:50 by Angela Liao MD) Acid reflux CAD (coronary artery disease) non-obstructive per 07/2019 cardiac cath Carotid artery stenosis Chronic diastolic CHF (congestive heart failure) CKD (chronic kidney disease) stage 3, GFR 30-59 ml/min COPD (chronic obstructive pulmonary disease) Current smoker Diabetes Diabetes mellitus, type II (Chronic) Dyslipidemia (Chronic) GERD (gastroesophageal reflux disease) (Chronic) Hiatal hernia High cholesterol History of back problems History of lung cancer History of skin cancer s/p multiple skin excisions HTN (hypertension) Hypothyroidism IBS (irritable bowel syndrome) LBBB (left bundle branch block) Osteoarthritis Pulmonary hypertension Surgical History (Updated 11/05/19 @ 19:50 by Angela Liao MD) History of appendectomy (Resolved) History of breast biopsy R&L History of cardiac cath 07/2019 - no stents, 2019- no stents History of cataract extraction History of cholecystectomy (Inactive) History of colonoscopy History of endoscopy MULTIPLE History of hysterectomy History of lobectomy of lung LEFT UPPER (9-10 YR AGO) History of lumbar spinal fusion History of lumbar spinal fusion REVISION History of surgery R ANKLE, 2 YR OLD History of total right knee replacement S/P total knee arthroplasty Family History Father Family history of lung cancer Mother Family history of lung cancer Sister Family history of diabetes mellitus Sister Family history of diabetes mellitus Brother Family history of diabetes mellitus Uncle Family history of diabetes mellitus Uncle Family history of diabetes mellitus Social History Smoking Status: Current every day smoker Tobacco Type: Cigarettes Cigarettes Per Day: 3-4 CIGS/DAILY; Do You Dip or Chew Tobacco: No; Hx Alcohol Use: No Hx Substance Use: No Preferred Language: Latvian Communication Ability: Effective [employer] Sticker Required: No Beliefs That Will Affect Care: Spiritism Spiritism Beliefs: CONFUCIANIST marital status: Current Living Situation: Spouse Other Information That Helps Us Care for You: No Feels Safe at Home: Yes Review of Systems Review of Systems: All systems reviewed & are unremarkable except as noted in HPI & below Physical Exam Physical Exam: GENERAL : No acute distress EYES: No icterus, gaze conjugate. Pupils equal round and reactive to light NOSE: No evidence of epistaxis MOUTH: No lesions or candidiasis. Mucosa dry NECK: Supple LUNGS: Diffuse crackles on exam. After BiPAP patient then developed bronchospasm in the upper lung aviles. HEART: Regular, rate controlled ABDOMEN: Soft, NT, ND, BS Present EXTREMITIES: No LE edema, pedal pulses intact. Right leg is wrapped from the mid thigh to the calf with an Frankie wrap. NEURO: A&OX3 Results & Data Results & Data ([facility]) Vital Signs (Past 12 Hours) Vital Signs Temp Pulse Pulse Resp BP Pulse Ox 11/05/19 15:07 98 H 22 100 11/05/19 13:35 111 H 26 H 96 11/05/19 12:18 97 H 22 90 11/05/19 11:35 93 H 22 168/87 H 94 11/05/19 07:15 36.9 C 90 16 150/76 H 96 11/05/19 07:06 165/84 H 11/05/19 07:00 36.6 C 93 H 16 97 11/05/19 03:47 36.6 C 93 H 16 144/71 H 93 Laboratory Results 11/05/19 07:09 11/05/19 14:[address] ANGIOGRAPHY OF THE CHEST, PULMONARY EMBOLUS PROTOCOL CLINICAL HISTORY: Chest pain. Shortness of breath. COMPARISON STUDY: Chest radiograph October 22, 2019 and November 05, 2019. TECHNIQUE: Following IV administration of 118 mL of Optiray-320, helical axial images of the chest were obtained utilizing the pulmonary embolus protocol. Maximal intensity projections and sagittal and coronal reformats were viewed on an independent 3D workstation. IV contrast was administered without complication. Automated exposure control was utilized for the study. A dose lowering technique was utilized adhering to the principles of ALARA. CT DOSE: 684.81 mGy.cm FINDINGS: No pulmonary emboli are identified although the segmental and s ubsegmental pulmonary arteries are suboptimally assessed due to respiratory motion. The heart is moderately enlarged. Moderate coronary artery calcification is noted. There is no pericardial effusion. There are small bilateral pleural effusions. No pneumothorax is present. Interlobular septal thickening is noted. There are are additional alveolar opacities the right lower lobe and the left lower lung. The patient status post left lower lobectomy. No enlarged axillary, mediastinal or hilar lymph nodes are present. Postoperative findings within the left chest wall are noted. Upper abdomen is unremarkable. IMPRESSION: 1. No pulmonary emboli identified although segmental and subsegmental pulmonary arteries suboptimally assessed due to respiratory motion. 2. Moderate interstitial pulmonary edema. Right lower lobe and left lower lung alveolar opacities which may reflect superimposed pneumonia or alveolar edema. 3. Small bilateral pleural effusions. 4. Status post left lower lobectomy. Electronically signed by: Karlos Edwards M.D. 11/05/2019 1:19 PM PG Care Time/CCT Total # of Minutes Spent Total Time Spent with Patient: Total time spent is greater than 50% in coordination of care (as documented) at patient's floor/unit and/or counseling patient: 65 minutes Coding Level of Care Code 38737 Inpt Consult Level 5 Diagnoses Acute respiratory failure J96.00 COPD (chronic obstructive pulmonary disease) J44.9 History of lung cancer Z85.118 HTN (hypertension) I10
[2019-11-05] MEDS: BUDESONIDE 0.5 MG/2 ML VIAL (PULMICORT) NEB SCH (19:09)
[2019-11-05] MEDS: FORMOTEROL 20 MCG/2 ML VIAL NEB SCH (19:13)
--- NOTE | 2019-11-05 19:49 | Orthopedic Progress Note ---
Date of Service November 05, 2019 Assessment & Plan (1) Degenerative joint disease of knee, right: s/p Right TKA POD#1 -ARF - Hospitalist and Pulm recs appreciated. Currently on Bipap, will continue overnight. Showing improvement. -ancef x 24 -DVT ppx: SCDs, TEDs, ASA BID -WBAT RLE -PT/OT -PO XR demonstrates a well aligned well fixed prothesis without fracture/dislocation -am labs - as above, hgb 10.1. Patient with ADRIANA Cr 1.39, pre op Cr 1.07, will monitor, IV fluids, avoid nephrotoxic medications, encourage PO intake. -DC planning - home with Admission and Anticipated Discharge Date Admission Date: November 04, 2019 Subjective Post Operative Progress Note Patient seen laying in bed, currently on Bipap, feeling better she reports, mild dyspnea. Patient had episode of SOB and wheezing while participating in PT today, O2 sat of 81%, placed on 4L with a O2 of 91% Seen by hospitalist and transfered to ICU for ARF and started on Bipap. Patient VSS stable and has been tolerating Bipap. Review of Systems Review of Systems: All systems reviewed & are unremarkable except as noted in HPI & below Constitutional: as per Subjective / HPI Physical Exam Physical Exam: RLE NVSI +EHL/FHL/TA/GS SILT grossly, +2 DP pulse, compartments soft NT, dressing cdi. Constitutional: WD/WN, vitals as above Results & Data ([place]) Vital Signs (Past 12 Hours) Vital Signs Pulse Pulse Pulse Resp BP BP Pulse Ox 11/05/19 19:14 94 H 21 99 11/05/19 16:01 88 17 159/69 H 100 11/05/19 15:44 94 11/05/19 15:30 93 H 100 11/05/19 15:24 91 H 140/72 99 11/05/19 15:07 98 H 22 100 11/05/19 15:00 98 H 100 11/05/19 14:54 98 H 114/87 100 11/05/19 14:31 98 H 150/112 H 100 11/05/19 14:30 97 H 100 11/05/19 14:25 98 H 184/91 H 100 11/05/19 14:20 99 H 161/83 H 100 11/05/19 14:14 100 H 170/95 H 100 11/05/19 14:10 100 H 184/91 H 100 11/05/19 14:00 101 H 100 11/05/19 13:50 102 H 153/110 H 100 11/05/19 13:35 111 H 26 H 96 11/05/19 13:30 105 H 94 11/05/19 13:25 105 H 182/142 H 97 11/05/19 13:22 105 H 11/05/19 12:18 97 H 22 90 11/05/19 11:35 93 H 22 168/87 H 94 Laboratory Results 11/05/19 11/05/19 11/05/19 Range/Units 16:25 14:55 14:01 WBC (4.8-10.8) K/uL RBC (4.2-5.4) M/uL Hgb (12.0-16.0) g/dL Hct (37-47) % MCV (80-100) fL MCH (25-34) pg MCHC (32-36) g/dL RDW Std Deviation (36.4-46.3) fL RDW Coeff of Clemencia (11.5-14.5) % Plt Count (130-400) K/uL MPV (7.4-10.4) fL Sample Site R Radial POC pH 7.25 L (7.35-7.45) POC pCO2 56 H (35-46) mmHg POC pO2 363 H (80-95) mmHg POC HCO3 25 H (19-24) emerson/L POC Total CO2 26 (24-31) mmol/L POC Base Excess -3.0 (-9-1.8) emerson/L ABG pH (7.35-7.45) ABG pCO2 (35-46) mmHg ABG pO2 (80-95) mmHg ABG HCO3 (19-24) mmol/L POC ABG O2 Sat 100.0 H (90-95) % ABG O2 Saturation (90-95) % ABG Base Excess (-9-1.8) mEq/L Javier Test Pass (Pos) Barometric Pressure mm/Hg Oxygen Given O2 Delivery Device BIPAP POC O2 Rate 14 POC FiO2 100 % IPAP 12 Sodium 132 L (136-145) mmol/L Potassium 4.4 (3.5-5.1) mmol/L Chloride 103 (98-107) mmol/L Carbon Dioxide 22 (21-32) mmol/L Anion Gap 7.0 (3-11) BUN 18 (7-18) mg/dl Creatinine 1.33 H (0.6-1.2) mg/dl Est Cr Clr Drug Dosing 36.0 ml/min Est GFR ( Amer) 45.5 Est GFR (Non-Af Amer) 39.3 BUN/Creatinine Ratio 13.8 (10-20) Glucose 247 H (70-99) mg/dl POC Glucose 207 H (70-99) mg/dl Estimat Average Glucose mg/dl Hemoglobin A1c (4.5-5.6) % Calcium 8.7 (8.5-10.1) mg/dl Magnesium 2.4 (1.8-2.4) mg/dl Troponin I < 0.015 (0-0.045) ng/ml Beta-Hydroxybutyric Acd (0.2-2.81) mg/dl Hepatitis C Ab Screen (Neg) 11/05/19 11/05/19 11/05/19 Range/Units 12:51 12:18 10:06 WBC (4.8-10.8) K/uL RBC (4.2-5.4) M/uL Hgb (12.0-16.0) g/dL Hct (37-47) % MCV (80-100) fL MCH (25-34) pg MCHC (32-36) g/dL RDW Std Deviation (36.4-46.3) fL RDW Coeff of Clemencia (11.5-14.5) % Plt Count (130-400) K/uL MPV (7.4-10.4) fL Sample Site POC pH (7.35-7.45) POC pCO2 (35-46) mmHg POC pO2 (80-95) mmHg POC HCO3 (19-24) emerson/L POC Total CO2 (24-31) mmol/L POC Base Excess (-9-1.8) emerson/L ABG pH 7.24 L (7.35-7.45) ABG pCO2 55 H (35-46) mmHg ABG pO2 70 L (80-95) mmHg ABG HCO3 23 (19-24) mmol/L POC ABG O2 Sat (90-95) % ABG O2 Saturation 89.6 L (90-95) % ABG Base Excess -4.2 (-9-1.8) mEq/L Javier Test Pos (Pos) Barometric Pressure 731.0 mm/Hg Oxygen Given 5 L O2 Delivery Device POC O2 Rate POC FiO2 % IPAP Sodium (136-145) mmol/L Potassium (3.5-5.1) mmol/L Chloride (98-107) mmol/L Carbon Dioxide (21-32) mmol/L Anion Gap (3-11) BUN (7-18) mg/dl Creatinine (0.6-1.2) mg/dl Est Cr Clr Drug Dosing ml/min Est GFR ( Amer) Est GFR (Non-Af Amer) BUN/Creatinine Ratio (10-20) Glucose (70-99) mg/dl POC Glucose 249 H 227 H (70-99) mg/dl Estimat Average Glucose mg/dl Hemoglobin A1c (4.5-5.6) % Calcium (8.5-10.1) mg/dl Magnesium (1.8-2.4) mg/dl Troponin I (0-0.045) ng/ml Beta-Hydroxybutyric Acd (0.2-2.81) mg/dl Hepatitis C Ab Screen (Neg) 11/05/19 11/05/19 11/05/19 Range/Units 08:58 07:57 07:09 WBC (4.8-10.8) K/uL RBC (4.2-5.4) M/uL Hgb (12.0-16.0) g/dL Hct (37-47) % MCV (80-100) fL MCH (25-34) pg MCHC (32-36) g/dL RDW Std Deviation (36.4-46.3) fL RDW Coeff of Clemencia (11.5-14.5) % Plt Count (130-400) K/uL MPV (7.4-10.4) fL Sample Site POC pH (7.35-7.45) POC pCO2 (35-46) mmHg POC pO2 (80-95) mmHg POC HCO3 (19-24) emerson/L POC Total CO2 (24-31) mmol/L POC Base Excess (-9-1.8) emerson/L ABG pH (7.35-7.45) ABG pCO2 (35-46) mmHg ABG pO2 (80-95) mmHg ABG HCO3 (19-24) mmol/L POC ABG O2 Sat (90-95) % ABG O2 Saturation (90-95) % ABG Base Excess (-9-1.8) mEq/L Javier Test (Pos) Barometric Pressure mm/Hg Oxygen Given O2 Delivery Device POC O2 Rate POC FiO2 % IPAP Sodium (136-145) mmol/L Potassium (3.5-5.1) mmol/L Chloride (98-107) mmol/L Carbon Dioxide (21-32) mmol/L Anion Gap (3-11) BUN (7-18) mg/dl Creatinine (0.6-1.2) mg/dl Est Cr Clr Drug Dosing ml/min Est GFR ( Amer) Est GFR (Non-Af Amer) BUN/Creatinine Ratio (10-20) Glucose (70-99) mg/dl POC Glucose 142 H 138 H (70-99) mg/dl Estimat Average Glucose mg/dl Hemoglobin A1c (4.5-5.6) % Calcium (8.5-10.1) mg/dl Magnesium (1.8-2.4) mg/dl Troponin I (0-0.045) ng/ml Beta-Hydroxybutyric Acd (0.2-2.81) mg/dl Hepatitis C Ab Screen Neg (Neg) 11/05/19 11/05/19 11/05/19 Range/Units 07:09 07:09 07:09 WBC 12.04 H (4.8-10.8) K/uL RBC 3.23 L (4.2-5.4) M/uL Hgb 10.1 L (12.0-16.0) g/dL Hct 29.1 L (37-47) % MCV 90.1 (80-100) fL MCH 31.3 (25-34) pg MCHC 34.7 (32-36) g/dL RDW Std Deviation 48.5 H (36.4-46.3) fL RDW Coeff of Clemencia 14.9 H (11.5-14.5) % Plt Count 233 (130-400) K/uL MPV 8.9 (7.4-10.4) fL Sample Site POC pH (7.35-7.45) POC pCO2 (35-46) mmHg POC pO2 (80-95) mmHg POC HCO3 (19-24) emerson/L POC Total CO2 (24-31) mmol/L POC Base Excess (-9-1.8) emerson/L ABG pH (7.35-7.45) ABG pCO2 (35-46) mmHg ABG pO2 (80-95) mmHg ABG HCO3 (19-24) mmol/L POC ABG O2 Sat (90-95) % ABG O2 Saturation (90-95) % ABG Base Excess (-9-1.8) mEq/L Javier Test (Pos) Barometric Pressure mm/Hg Oxygen Given O2 Delivery Device POC O2 Rate POC FiO2 % IPAP Sodium 138 (136-145) mmol/L Potassium 4.6 (3.5-5.1) mmol/L Chloride 109 H (98-107) mmol/L Carbon Dioxide 24 (21-32) mmol/L Anion Gap 5.0 (3-11) BUN 16 (7-18) mg/dl Creatinine 1.39 H D (0.6-1.2) mg/dl Est Cr Clr Drug Dosing 34.4 ml/min Est GFR ( Amer) 43.2 Est GFR (Non-Af Amer) 37.2 BUN/Creatinine Ratio 11.7 (10-20) Glucose 132 H (70-99) mg/dl POC Glucose (70-99) mg/dl Estimat Average Glucose 143 mg/dl Hemoglobin A1c 6.6 H (4.5-5.6) % Calcium 8.6 (8.5-10.1) mg/dl Magnesium (1.8-2.4) mg/dl Troponin I (0-0.045) ng/ml Beta-Hydroxybutyric Acd (0.2-2.81) mg/dl Hepatitis C Ab Screen (Neg) 11/05/19 11/05/19 11/05/19 Range/Units 06:58 05:57 04:56 WBC (4.8-10.8) K/uL RBC (4.2-5.4) M/uL Hgb (12.0-16.0) g/dL Hct (37-47) % MCV (80-100) fL MCH (25-34) pg MCHC (32-36) g/dL RDW Std Deviation (36.4-46.3) fL RDW Coeff of Clemencia (11.5-14.5) % Plt Count (130-400) K/uL MPV (7.4-10.4) fL Sample Site POC pH (7.35-7.45) POC pCO2 (35-46) mmHg POC pO2 (80-95) mmHg POC HCO3 (19-24) emerson/L POC Total CO2 (24-31) mmol/L POC Base Excess (-9-1.8) emerson/L ABG pH (7.35-7.45) ABG pCO2 (35-46) mmHg ABG pO2 (80-95) mmHg ABG HCO3 (19-24) mmol/L POC ABG O2 Sat (90-95) % ABG O2 Saturation (90-95) % ABG Base Excess (-9-1.8) mEq/L Javier Test (Pos) Barometric Pressure mm/Hg Oxygen Given O2 Delivery Device POC O2 Rate POC FiO2 % IPAP Sodium (136-145) mmol/L Potassium (3.5-5.1) mmol/L Chloride (98-107) mmol/L Carbon Dioxide (21-32) mmol/L Anion Gap (3-11) BUN (7-18) mg/dl Creatinine (0.6-1.2) mg/dl Est Cr Clr Drug Dosing ml/min Est GFR ( Amer) Est GFR (Non-Af Amer) BUN/Creatinine Ratio (10-20) Glucose (70-99) mg/dl POC Glucose 157 H 196 H 191 H (70-99) mg/dl Estimat Average Glucose mg/dl Hemoglobin A1c (4.5-5.6) % Calcium (8.5-10.1) mg/dl Magnesium (1.8-2.4) mg/dl Troponin I (0-0.045) ng/ml Beta-Hydroxybutyric Acd (0.2-2.81) mg/dl Hepatitis C Ab Screen (Neg) 11/05/19 11/05/19 11/05/19 Range/Units 03:56 02:57 01:57 WBC (4.8-10.8) K/uL RBC (4.2-5.4) M/uL Hgb (12.0-16.0) g/dL Hct (37-47) % MCV (80-100) fL MCH (25-34) pg MCHC (32-36) g/dL RDW Std Deviation (36.4-46.3) fL RDW Coeff of Clemencia (11.5-14.5) % Plt Count (130-400) K/uL MPV (7.4-10.4) fL Sample Site POC pH (7.35-7.45) POC pCO2 (35-46) mmHg POC pO2 (80-95) mmHg POC HCO3 (19-24) emerson/L POC Total CO2 (24-31) mmol/L POC Base Excess (-9-1.8) emerson/L ABG pH (7.35-7.45) ABG pCO2 (35-46) mmHg ABG pO2 (80-95) mmHg ABG HCO3 (19-24) mmol/L POC ABG O2 Sat (90-95) % ABG O2 Saturation (90-95) % ABG Base Excess (-9-1.8) mEq/L Javier Test (Pos) Barometric Pressure mm/Hg Oxygen Given O2 Delivery Device POC O2 Rate POC FiO2 % IPAP Sodium (136-145) mmol/L Potassium (3.5-5.1) mmol/L Chloride (98-107) mmol/L Carbon Dioxide (21-32) mmol/L Anion Gap (3-11) BUN (7-18) mg/dl Creatinine (0.6-1.2) mg/dl Est Cr Clr Drug Dosing ml/min Est GFR ( Amer) Est GFR (Non-Af Amer) BUN/Creatinine Ratio (10-20) Glucose (70-99) mg/dl POC Glucose 204 H 223 H 255 H (70-99) mg/dl Estimat Average Glucose mg/dl Hemoglobin A1c (4.5-5.6) % Calcium (8.5-10.1) mg/dl Magnesium (1.8-2.4) mg/dl Troponin I (0-0.045) ng/ml Beta-Hydroxybutyric Acd (0.2-2.81) mg/dl Hepatitis C Ab Screen (Neg) 11/05/19 11/04/19 11/04/19 Range/Units 00:48 23:45 22:29 WBC (4.8-10.8) K/uL RBC (4.2-5.4) M/uL Hgb (12.0-16.0) g/dL Hct (37-47) % MCV (80-100) fL MCH (25-34) pg MCHC (32-36) g/dL RDW Std Deviation (36.4-46.3) fL RDW Coeff of Clemencia (11.5-14.5) % Plt Count (130-400) K/uL MPV (7.4-10.4) fL Sample Site POC pH (7.35-7.45) POC pCO2 (35-46) mmHg POC pO2 (80-95) mmHg POC HCO3 (19-24) emerson/L POC Total CO2 (24-31) mmol/L POC Base Excess (-9-1.8) emerson/L ABG pH (7.35-7.45) ABG pCO2 (35-46) mmHg ABG pO2 (80-95) mmHg ABG HCO3 (19-24) mmol/L POC ABG O2 Sat (90-95) % ABG O2 Saturation (90-95) % ABG Base Excess (-9-1.8) mEq/L Javier Test (Pos) Barometric Pressure mm/Hg Oxygen Given O2 Delivery Device POC O2 Rate POC FiO2 % IPAP Sodium (136-145) mmol/L Potassium (3.5-5.1) mmol/L Chloride (98-107) mmol/L Carbon Dioxide (21-32) mmol/L Anion Gap (3-11) BUN (7-18) mg/dl Creatinine (0.6-1.2) mg/dl Est Cr Clr Drug Dosing ml/min Est GFR ( Amer) Est GFR (Non-Af Amer) BUN/Creatinine Ratio (10-20) Glucose (70-99) mg/dl POC Glucose 278 H 304 H* 364 H* (70-99) mg/dl Estimat Average Glucose mg/dl Hemoglobin A1c (4.5-5.6) % Calcium (8.5-10.1) mg/dl Magnesium (1.8-2.4) mg/dl Troponin I (0-0.045) ng/ml Beta-Hydroxybutyric Acd (0.2-2.81) mg/dl Hepatitis C Ab Screen (Neg) 11/04/19 11/04/19 11/04/19 Range/Units 21:24 20:31 20:28 WBC (4.8-10.8) K/uL RBC (4.2-5.4) M/uL Hgb (12.0-16.0) g/dL Hct (37-47) % MCV (80-100) fL MCH (25-34) pg MCHC (32-36) g/dL RDW Std Deviation (36.4-46.3) fL RDW Coeff of Clemencia (11.5-14.5) % Plt Count (130-400) K/uL MPV (7.4-10.4) fL Sample Site POC pH (7.35-7.45) POC pCO2 (35-46) mmHg POC pO2 (80-95) mmHg POC HCO3 (19-24) emerson/L POC Total CO2 (24-31) mmol/L POC Base Excess (-9-1.8) emerson/L ABG pH (7.35-7.45) ABG pCO2 (35-46) mmHg ABG pO2 (80-95) mmHg ABG HCO3 (19-24) mmol/L POC ABG O2 Sat (90-95) % ABG O2 Saturation (90-95) % ABG Base Excess (-9-1.8) mEq/L Javier Test (Pos) Barometric Pressure mm/Hg Oxygen Given O2 Delivery Device POC O2 Rate POC FiO2 % IPAP Sodium 132 L (136-145) mmol/L Potassium 4.7 (3.5-5.1) mmol/L Chloride 101 (98-107) mmol/L Carbon Dioxide 20 L (21-32) mmol/L Anion Gap 10.0 (3-11) BUN 16 (7-18) mg/dl Creatinine 1.79 H (0.6-1.2) mg/dl Est Cr Clr Drug Dosing 26.7 ml/min Est GFR ( Amer) 31.8 Est GFR (Non-Af Amer) 27.4 BUN/Creatinine Ratio 9.1 L (10-20) Glucose 349 H* (70-99) mg/dl POC Glucose 408 H* 453 H* (70-99) mg/dl Estimat Average Glucose mg/dl Hemoglobin A1c (4.5-5.6) % Calcium 8.9 (8.5-10.1) mg/dl Magnesium (1.8-2.4) mg/dl Troponin I (0-0.045) ng/ml Beta-Hydroxybutyric Acd 3.45 H (0.2-2.81) mg/dl Hepatitis C Ab Screen (Neg)
[2019-11-05] MEDS: SENNA 8.6 MG TAB PO SCH (20:38)
[2019-11-05] MEDS: ROSUVASTATIN CALCIUM 20 MG TAB PO SCH (20:38)
[2019-11-05] MEDS: MONTELUKAST SODIUM 10 MG TABLET PO SCH (20:38)
[2019-11-05] MEDS: ASPIRIN 81 MG ECTAB PO SCH (20:39)
[2019-11-05] MEDS: INSULIN GLARGINE SOLOSTAR 100 UNITS/ML 3 ML PEN SC SCH (20:41)
[2019-11-06] MEDS: ACETAMINOPHEN 500 MG TAB PO SCH ×3 (05:19→20:33)
[2019-11-06] MEDS: BUDESONIDE 0.5 MG/2 ML VIAL (PULMICORT) NEB SCH (07:05)
[2019-11-06] MEDS: FORMOTEROL 20 MCG/2 ML VIAL NEB SCH (07:05)
[2019-11-06] MEDS: ALBUT/IPRATROP 3MG/0.5MG NEB 3 ML VIAL NEB SCH ×2 (07:06→11:27)
--- NOTE | 2019-11-06 07:14 | XRay Report ---
XR chest 1V portable HISTORY: 74 years-old Female Acute respiratory failure with hypoxia acute respiratory failure COMPARISON: Chest radiograph and CTA chest 11/05/2019 TECHNIQUE: Portable AP view of the chest FINDINGS: Cardiac silhouette is enlarged, unchanged. Calcified plaque of the thoracic aortic arch. Calcified gr anuloma of the right midlung is unchanged. Chronic postoperative changes of the left lung. Pulmonary vascular congestion with interstitial coarsening. Mild bibasilar consolidation. Small pleural effusio ns. No pneumothorax. Degenerative changes of the shoulders and spine. IMPRESSION: 1. Cardiomegaly with unchanged pulmonary edema. 2. Small pleural effusions with persistent minimal bibasilar consolidation. ACT 112: Negative or not required by law. The above report was generated using voice recognition software. It may contain grammatical, syntax o r spelling errors. Electronically signed by: Everton Garg M.D. 11/06/2019 7:12 AM
[2019-11-06] MEDS: INSULIN ASPART 100 UNITS/ML 3 ML PEN SC SCH ×4 (08:03→20:43)
[2019-11-06] MEDS: BUMETANIDE 1 MG TAB PO SCH (08:05)
[2019-11-06] MEDS: ASPIRIN 81 MG ECTAB PO SCH ×2 (08:05→20:27)
[2019-11-06] MEDS: ATENOLOL 50 MG TABLET PO SCH ×2 (08:06→20:35)
[2019-11-06] MEDS: RANOLAZINE 500 MG ER TAB PO SCH ×2 (08:06→20:26)
[2019-11-06] MEDS: PANTOprazole 40 MG TAB PO SCH (08:06)
[2019-11-06] MEDS: MULTIVITAMIN TAB PO SCH (08:06)
[2019-11-06] MEDS: UMECLIDINIUM BROMIDE 62.5MCG/BLISTER 7 PUFFS/INHALER INH SCH (08:07)
[2019-11-06] MEDS: GABAPENTIN 400 MG CAP PO SCH ×3 (08:07→20:27)
[2019-11-06] MEDS: DOCUSATE SODIUM 100 MG CAP PO SCH ×2 (08:08→20:35)
--- NOTE | 2019-11-06 08:40 | Electrocardiogram Report ---
Test Reason : Blood Pressure : / mmHG Vent. Rate : 097 BPM Atrial Rate : 097 BPM P-R Int : 168 ms QRS Dur : 146 ms QT Int : 428 ms P-R-T Axes : 062 -24 203 degrees QTc Int : 543 ms Normal sinus rhythm Possible Left atrial enlargement Left bundle branch block Abnormal ECG When compared with ECG of 18-SEP-2017 23:25, No significant change Confirmed by Eric Thrasher ([id number]) on 11/06/2019 8:40:32 AM Referred By: Jaxson Marques Confirmed By:Eric Thrasher
[2019-11-06 08:53] LABS: Hematocrit (blood only) 27.1 % (37-47); Hemoglobin 9.3 g/dL (12.0-16.0); Mean Corpuscular Hemoglobin 31.4 pg (25-34); Mean Corpuscular Hgb Conc 34.3 g/dL (32-36); Mean Corpuscular Volume 91.6 fL (80-100); Mean Platelet Volume 8.8 fL (7.4-10.4); Platelet Count 215 K/uL (130-400); RDW Coefficient of Variation 15.3 % (11.5-14.5); RDW Standard Deviation 51.3 fL (36.4-46.3); Red Blood Count 2.96 M/uL (4.2-5.4); White Blood Count 9.36 K/uL (4.8-10.8)
[2019-11-06 08:54] LABS: Base Excess ABG -0.5 mEq/L (-9-1.8); HCO3 ABG 24 mmol/L (19-24); PCO2 ABG 37 mmHg (35-46); PO2 ABG 84 mmHg (80-95); pH ABG 7.43 (7.35-7.45)
[2019-11-06 08:58] LABS: Allen Test Pos (Pos)
--- NOTE | 2019-11-06 09:06 | Electrocardiogram Report ---
Test Reason : Blood Pressure : / mmHG Vent. Rate : 101 BPM Atrial Rate : 101 BPM P-R Int : 164 ms QRS Dur : 158 ms QT Int : 400 ms P-R-T Axes : 058 037 196 degrees QTc Int : 518 ms Poor data quality, interpretation may be adversely affected Sinus tachycardia Left atrial enlargement Left bundle branch block Abnormal ECG When compared with ECG of 05-NOV-2019 12:33, No significant change Confirmed by Chuck Keller ([id number]) on 11/06/2019 9:06:09 AM Referred By: Jaxson Marques Confirmed By:Chuck Keller
--- NOTE | 2019-11-06 09:11 | Electrocardiogram Report ---
Test Reason : Blood Pressure : / mmHG Vent. Rate : 097 BPM Atrial Rate : 097 BPM P-R Int : 164 ms QRS Dur : 156 ms QT Int : 416 ms P-R-T Axes : 052 -07 160 degrees QTc Int : 528 ms Normal sinus rhythm Left atrial enlargement Left bundle branch block Abnormal ECG When compared with ECG of 04-NOV-2019 13:23, No significant change Confirmed by Chuck Keller ([id number]) on 11/06/2019 9:11:03 AM Referred By: Jaxson Marques Confirmed By:Chuck Keller
[2019-11-06 09:26] LABS: BUN Creatinine Ratio 14.9 (10-20); Calcium 8.6 mg/dl (8.5-10.1); Creatinine Clr Calc Pharmacy 39.2 ml/min; Est GFR (African American) 49.1; Est GFR (Non-African American) 42.3
[2019-11-06 09:38] LABS: Thyroid Stimulating Hormone 0.525 uIu/ml (0.300-4.500)
--- NOTE | 2019-11-06 10:10 | Hospitalist Progress Note ---
Date of Service November 06, 2019 Assessment & Plan (1) Acute on chronic combined systolic and diastolic CHF (congestive heart failure): echo 2019 in [facility] per records with EF 45%; nonischemic cardiomyopathy. EF on left-heart cath 2019 also with EF 45%. Will defer on repeat echo. Decompensated CHF MUCH improved today s/p diuresis overnight. Hold PO bumex. Give bumex 1mg IV x 1 and follow response. likely to need additional diuresis tomorrow. Cont BB. (2) Acute respiratory failure with hypoxia and hypercapnia: 2nd to decompensated CHF +/- COPD -- former the primary cause. Cont to diurese. Symptoms much improved and O2 / BIPAP weaned off. (3) S/P total knee arthroplasty: POD #2 s/p right TKR. pain control, DVT proph, dispo - defer to ortho. (4) Hypothyroidism: TSH wnl this am. Cont synthroid. (5) LBBB (left bundle branch block): Chronic. Non-obstructive CAD on heart cath 2019 (tightest occlusion 60% in distal LCx. (6) CKD (chronic kidney disease) stage 3, GFR 30-59 ml/min: Cr stable today. BMP am. (7) CAD (coronary artery disease): Cont BB. Cont asa. Cont statin. Cont ranexa. Nonobstructive on cath 2019. (8) Diabetes mellitus, type II: pharmacy managing (9) COPD (chronic obstructive pulmonary disease): agree with pulmonary to defer on systemic steroids most of respiratory failure 11/04 was 2nd to decompensated CHF cont usual inhalers (10) History of iron deficiency: check iron studies in am superimposed acute blood loss anemia in setting of right TKR (11) Acute blood loss anemia: mild check Fe studies in am has received Fe infusions in the past (12) DVT prophylaxis: asa BID per ortho will cont to follow updated at bedside Admission and Anticipated Discharge Date Admission Date: November 04, 2019 Subjective BIPAP weaned off. Now in room air. Feels MUCH better with less dyspnea. Mild wheezing. Sitting in chair during my visit. Eating ok. No BM but passing flatus. No chest pains. requests that her iron studies be checked - has severe cravings for ice. Review of Systems Constitutional: no fever Respiratory: + dyspnea on exertion Cardiovascular: + edema; no paroxysmal nocturnal dyspnea Physical Exam Constitutional: no acute distress and no altered mental status ENMT: external ear and nose normal, oropharynx normal Respiratory: no respiratory distress Auscultation: + crackles (b/l ) and + wheezes (end-expiratory) Cardiovascular: Rate/Rhythm: regular rate and regular rhythm Heart Sounds: normal S1 and normal S2; no murmur Vessels: + JVD, posterior tibial pulses present and dorsalis pedis pulses present Extremities: + edema (right leg, <1+; none left) Gastrointestinal (Abdomen): normal bowel sounds, soft, nontender, no hepatosplenomegaly Musculoskeletal: right knee wrapped in BARRY Psychiatric: A+Ox3, euthymic affect Results & Data Results & Data ([facility]) Vital Signs (Past 12 Hours) Vital Signs Temp Pulse Pulse Pulse Resp BP BP 11/06/19 07:07 81 24 11/06/19 03:39 36.4 C L 82 18 113/69 11/06/19 03:12 87 17 11/06/19 00:31 82 11/05/19 23:13 36.8 C 83 15 111/68 Pulse Ox 11/06/19 07:07 99 11/06/19 03:39 100 11/06/19 03:12 100 11/06/19 00:31 11/05/19 23:13 100 Laboratory Results Laboratory Results - last 24 hr 11/05/19 11/05/19 11/05/19 12:18 12:51 14:01 WBC RBC Hgb Hct MCV MCH MCHC RDW Std Deviation RDW Coeff of Clemencia Plt Count MPV Sample Site POC pH POC pCO2 POC pO2 POC HCO3 POC Total CO2 POC Base Excess ABG pH 7.24 L ABG pCO2 55 H ABG pO2 70 L ABG HCO3 23 POC ABG O2 Sat ABG O2 Saturation 89.6 L ABG Base Excess -4.2 Javier Test Pos Barometric Pressure 731.0 Oxygen Given 5 L O2 Delivery Device POC O2 Rate POC FiO2 IPAP Sodium 132 L Potassium 4.4 Chloride 103 Carbon Dioxide 22 Anion Gap 7.0 BUN 18 Creatinine 1.33 H Est Cr Clr Drug Dosing 36.0 Est GFR ( Amer) 45.5 Est GFR (Non-Af Amer) 39.3 BUN/Creatinine Ratio 13.8 Glucose 247 H POC Glucose 249 H Calcium 8.7 Magnesium 2.4 Troponin I < 0.015 TSH 07/11/05/19 11/05/19 14:55 16:25 20:30 WBC RBC Hgb Hct MCV MCH MCHC RDW Std Deviation RDW Coeff of Clemencia Plt Count MPV Sample Site R Radial POC pH 7.25 L POC pCO2 56 H POC pO2 363 H POC HCO3 25 H POC Total CO2 26 POC Base Excess -3.0 ABG pH ABG pCO2 ABG pO2 ABG HCO3 POC ABG O2 Sat 100.0 H ABG O2 Saturation ABG Base Excess Javier Test Pass Barometric Pressure Oxygen Given O2 Delivery Device BIPAP POC O2 Rate 14 POC FiO2 100 IPAP 12 Sodium Potassium Chloride Carbon Dioxide Anion Gap BUN Creatinine Est Cr Clr Drug Dosing Est GFR ( Amer) Est GFR (Non-Af Amer) BUN/Creatinine Ratio Glucose POC Glucose 207 H 224 H Calcium Magnesium Troponin I TSH 11/06/19 11/06/19 11/06/19 07:12 08:26 08:26 WBC 9.36 RBC 2.96 L Hgb 9.3 L Hct 27.1 L MCV 91.6 MCH 31.4 MCHC 34.3 RDW Std Deviation 51.3 H RDW Coeff of Clemencia 15.3 H Plt Count 215 MPV 8.8 Sample Site POC pH POC pCO2 POC pO2 POC HCO3 POC Total CO2 POC Base Excess ABG pH ABG pCO2 ABG pO2 ABG HCO3 POC ABG O2 Sat ABG O2 Saturation ABG Base Excess Javier Test Barometric Pressure Oxygen Given O2 Delivery Device POC O2 Rate POC FiO2 IPAP Sodium 134 L Potassium Chloride 103 Carbon Dioxide 24 Anion Gap 7.0 BUN 19 H Creatinine 1.25 H Est Cr Clr Drug Dosing 39.2 Est GFR ( Amer) 49.1 Est GFR (Non-Af Amer) 42.3 BUN/Creatinine Ratio 14.9 Glucose 182 H POC Glucose 139 H Calcium 8.6 Magnesium Troponin I TSH 0.525 11/06/19 11/06/19 08:41 09:56 WBC RBC Hgb Hct MCV MCH MCHC RDW Std Deviation RDW Coeff of Clemencia Plt Count MPV Sample Site POC pH POC pCO2 POC pO2 POC HCO3 POC Total CO2 POC Base Excess ABG pH 7.43 ABG pCO2 37 ABG pO2 84 ABG HCO3 24 POC ABG O2 Sat ABG O2 Saturation 96.0 H ABG Base Excess -0.5 Javier Test Pos Barometric Pressure 729.8 Oxygen Given 3L O2 Delivery Device POC O2 Rate POC FiO2 IPAP Sodium Potassium Pending Chloride Carbon Dioxide Anion Gap BUN Creatinine Est Cr Clr Drug Dosing Est GFR ( Amer) Est GFR (Non-Af Amer) BUN/Creatinine Ratio Glucose POC Glucose Calcium Magnesium Pending Troponin I TSH PG Care Time/CCT Total # of Minutes Spent Total Time Spent with Patient: Total time spent is greater than 50% in coordination of care (as documented) at patient's floor/unit and/or counseling patient: Coding Level of Care Code 67974 Subseq Hosp Care Lvl 2 Diagnoses Acute on chronic combined systolic and diastolic CHF (congestive heart failure) I50.43 Acute respiratory failure with hypoxia and hypercapnia J96.01; J96.02 S/P total knee arthroplasty Z96.651 Laterality: right Hypothyroidism E03.9 Hypothyroidism type: acquired LBBB (left bundle branch block) I44.7 CKD (chronic kidney disease) stage 3, GFR 30-59 ml/min N18.3 CAD (coronary artery disease) I25.10 Coronary Disease-Associated Artery/Lesion type: [place] artery [place] vs. transplanted heart: [place] heart Associated angina: without angina Diabetes mellitus, type II E11.9; Z79.4 Diabetes mellitus tank terminal gauger insulin use: with group home use Diabetes mellitus complication status: without complication COPD (chronic obstructive pulmonary disease) J44.9 COPD type: unspecified COPD History of iron deficiency Z86.39 Acute blood loss anemia D62 DVT prophylaxis Z29.9 (1) Diabetes mellitus, type II Diabetes mellitus group home insulin use: with group home use Diabetes mellitus complication status: without complication Qualified Code(s): E11.9 - Type 2 diabetes mellitus without complications; Z79.4 - care home (current) use of insulin (2) CAD (coronary artery disease) Coronary Disease-Associated Artery/Lesion type: [place] artery [place] vs. transplanted heart: [place] heart Associated angina: without angina Qualified Code(s): I25.10 - Atherosclerotic heart disease of [place] coronary artery without angina pectoris (3) Hypothyroidism Hypothyroidism type: acquired Qualified Code(s): E03.9 - Hypothyroidism, unspecified (4) S/P total knee arthroplasty Laterality: right Qualified Code(s): Z96.651 - Presence of right artificial knee joint (5) COPD (chronic obstructive pulmonary disease) COPD type: unspecified COPD Qualified Code(s): J44.9 - Chronic obstructive pulmonary disease, unspecified
[2019-11-06] MEDS ORDERED: BUMETANIDE 1 MG in SYRINGE 0 ML IV ONE (10:15)
--- NOTE | 2019-11-06 10:34 | Pharmacy Report ---
Pharmacy Glycemic Short Note 2 - Date of Service November 06, 2019 - Glycemic Short BSG Results (Last 24 hours): 11/05/19 11/05/19 11/05/19 12:18 14:01 16:25 Glucose 247 H POC Glucose 249 H 207 H 11/05/19 11/06/19 11/06/19 20:30 07:12 08:26 Glucose 182 H POC Glucose 224 H 139 H OUTPATIENT ANTIDIABETIC REGIMEN: * Glargine 65 units SQ Q HS * Metformin 1000mg PO BID * Semaglutide 1mg SQ weekly on Sunday * A1c 6.6% 11/05/19 ASSESSMENT: 11/06/19 * Patient about to be discharged yesterday but then had flash pulmonary edema after 500 mL fluid which required transfer to telemetry * Patient received methylprednisolone 125 mg IV x1 yesterday afternoon for the above mentioned event. BSG's therefore again elevated yesterday evening x2. Per pulmonary note - not likely to receive additional systemic steroids. Anticipate that effects of methylprednisolone dose yesterday may be dissipating, but will tighten CHO ratio for now. Likely can loosen later today * AM fasting BSG within goal range. OK to continue home dose, but will add in parameters for reduced dose if BSG is lower this evening as PO intake may be poor (0-10 g CHO the last three meals), steroid effects will have dissipated by tonight, and home Lantus may provide some prandial coverage 11/05/19 * Type 2 diabetic admitted for R TKA * POD # 1 * BSGs quickly deteriorated yesterday post-op, likely due to pre-op dexamethasone administration in combination with surgical stressors * Insulin drip initiated last evening for BSGs in low 400s. BSGs 130-150s range this AM. PRP reviewed. No metabolic acidosis evident. * Will transition patient off insulin drip this AM as the effects of a single PO dexamethasone dose on insulin resistance typically begin to dissipate after 24-36 hours. Patient may be discharged this afternoon. Will give 20 units NPH this AM to facilitate transition off drip. * Will continue to dose Novolog aggressively until it is evident that insulin resistance decreasing PLAN FOR INPATIENT GLYCEMIC CONTROL: * Hold outpatient oral diabetes medications * Basal insulin * Lantus 65 units SQ Q HS. Reduce to 50 units if BSG < 120 mg/dL * Bolus insulin * NovoLog per scale ACHS or Q6hrs while NPO * Goal Range: Low 110 mg/dL - High 140 mg/dL * Correction Factor: 15 mg/dL/unit * Nutritional / Prandial insulin per carb ratio of 1 unit per 4 grams CHO consumed PLAN FOR DISCHARGE: * may resume home regimen if no contraindications present at time of discharge.
[2019-11-06 10:35] LABS: Potassium 4.4 mmol/L (3.5-5.1)
[2019-11-06 10:36] LABS: Magnesium 2.2 mg/dl (1.8-2.4)
--- NOTE | 2019-11-06 10:55 | Pulmonology Progress Note ---
Date of Service November 06, 2019 Assessment & Plan (1) Acute respiratory failure: Patient was being prepared for discharge today and received a 500 cc bolus of fluid and went into flash pulmonary edema Patient was placed on BiPAP at 12/6 with an FiO2 of 100% and improved significantly within the first hour ABG was drawn and patient was found to be acidotic and hypercapnic Repeat ABG in 90 minutes was unchanged We did treat the patient with formoterol, budesonide, and a single dose of Solu- Medrol at 125 mg IV We will continue with the formoterol and budesonide scheduled but will hold further doses of steroids secondary to diabetes and random glucose of 245 Patient is ABG has normalized with BiPAP last night. I believe that this was an acute event secondary to bolus of IV fluid yesterday. If patient is able to be weaned off of supplemental oxygen, patient can be discharged home from a pulmonary perspective on her usual bronchodilators Follow-up with patient's primary factory maintenance technician in [place] (2) COPD (chronic obstructive pulmonary disease): Most recent pulmonary function testing was done October 27, 2019 and [place] revealing moderate obstructive disease Patient does follow with a factory maintenance technician. On discharge continue albuterol HFA as needed, Spiriva, Bumetanide 1 mg daily and Singulair. We will refer patient back to her regular factory maintenance technician on discharge Patient reports that she quit smoking 14 months ago We will continue to encourage smoking cessation (3) History of lung cancer: Patient with history of lung cancer in 2008 and status post left upper lobectomy Received adjuvant chemotherapy of unknown agent Patient reports no recurrent disease Refer back to usual factory maintenance technician to follow No current issues (4) HTN (hypertension): Patient currently on atenolol 100 mg twice daily and ranolazine Blood pressure was elevated on arrival in the unit After treating with furosemide blood pressure corrected moderately Continue to monitor on telemetry Thank you for including us in the care of this patient. We will sign off at this time. Please refer to Dr. Garcia's addendum for further recommendations and corrections. Admission and Anticipated Discharge Date Admission Date: November 04, 2019 Supervising Physician Co-Signing Physician Notes Seen and examined. Agree with assessment plan as noted by critical care/pulmonary MIKAEL. She appears significantly improved. She was bronchospastic and could consider a 3-day burst of prednisone 20 mg a day. In addition she may benefit from transition to long-acting beta agonist/long-acting anticholinergic. Outpatient pulmonary follow-up recommended with her established factory maintenance technician. Subjective Attending: Dr. Garcia Patient seen and examined at bedside. ABGs this morning have corrected and are within normal limits. Patient did use BiPAP overnight at 12/6 with an FiO2 of 30%. This morning the patient is on nasal cannula at 3 L but saturating at 100% SaO2. Nursing has taken the initiative to place the patient on room air to attempt to titrate off of oxygen this morning. Patient also is using incentive spirometry at bedside. She does continue to have some faint wheezes in the posterior upper aviles. She is not aware of any bronchospasm. She does not have any shortness of breath. She denies any fever or chills. She has no chest pain. The patient is talkative and has no conversational dyspnea. Review of Systems Review of Systems: All systems reviewed & are unremarkable except as noted in HPI & below Physical Exam Physical Exam: GENERAL : No acute distress EYES: No icterus, gaze conjugate NOSE: No evidence of epistaxis MOUTH: No lesions or candidiasis NECK: Supple LUNGS: Good inspirational effort and tidal volume. Patient does have some very faint expiratory wheezes in the posterior upper aviles. These clear somewhat with forceful cough. She has no other adventitious breath sounds. There is no paradoxical chest wall movement. HEART: Regular, rate controlled ABDOMEN: Soft, NT, ND, BS Present EXTREMITIES: No LE edema, pedal pulses intact. [place] wrap is secured from the mid thigh down to the calf. NEURO: A&OX3 Results & Data Results & Data ([facility]) Vital Signs (Past 12 Hours) Vital Signs Temp Pulse Pulse Pulse Resp BP BP 11/06/19 07:07 81 24 11/06/19 03:39 36.4 C L 82 18 113/69 11/06/19 03:12 87 17 11/06/19 00:31 82 11/05/19 23:13 36.8 C 83 15 111/68 Pulse Ox 11/06/19 07:07 99 11/06/19 03:39 100 11/06/19 03:12 100 11/06/19 00:31 11/05/19 23:13 100 Laboratory Results 11/05/19 11/06/19 12:51 08:41 ABG pH 7.24 L 7.43 ABG pCO2 55 H 37 ABG pO2 70 L 84 ABG HCO3 23 24 ABG O2 Saturation 89.6 L 96.0 H ABG Base Excess -4.2 -0.5 11/06/19 08:26 11/06/19 09:56 Diagnostic Findings XR chest 1V portable HISTORY: 74 years-old Female Acute respiratory failure with hypoxia acute respi ratory failure COMPARISON: Chest radiograph and CTA chest 11/05/2019 TECHNIQUE: Portable AP view of the chest FINDINGS: Cardiac silhouette is enlarged, unchanged. Calcified plaque of the thoracic ao rtic arch. Calcified granuloma of the right midlung is unchanged. Chronic postoperative changes of the left lung. Pulmonary vascular congestion with interstitial coarsening. Mild bibasilar consolidation. Small pleural effusions. No pneumothorax. Degenerative changes of the shoulders and spine. IMPRESSION: 1. Cardiomegaly with unchanged pulmonary edema. 2. Small pleural effusions with persistent minimal bibasilar consolidation. Electronically signed by: Everton Garg M.D. 11/06/2019 7:12 AM PG Care Time/CCT Total # of Minutes Spent Total Time Spent with Patient: Total time spent is greater than 50% in coordination of care (as documented) at patient's floor/unit and/or counseling patient: 30 minutes including interview of patient at bedside as well as discussion with . Coding Level of Care Code 72569 Subseq Hosp Care Lvl 2 Diagnoses Acute respiratory failure J96.00 COPD (chronic obstructive pulmonary disease) J44.9 History of lung cancer Z85.118 HTN (hypertension) I10
[2019-11-06] MEDS ORDERED: ALBUT/IPRATROP 3MG/0.5MG NEB 3 ML VIAL NEB PRN (11:48)
--- NOTE | 2019-11-06 12:47 | Orthopedic Progress Note ---
Date of Service November 06, 2019 Assessment & Plan (1) Degenerative joint disease of knee, right: s/p Right TKA POD#2 -ARF - Hospitalist and Pulm recs appreciated. BiPAP discontinued this a.m., patient tolerating 02 with NC. -ancef x 24 -DVT ppx: SCDs, TEDs, ASA BID -WBAT RLE -PT/OT -PO XR demonstrates a well aligned well fixed prothesis without fracture/dislocation -am labs - as above, hgb 9.3. Cr 1.25, improving. -DC planning - Rehab when stable POD#1 -ARF - Hospitalist and Pulm recs appreciated. Currently on Bipap, will continue overnight. Showing improvement. -ancef x 24 -DVT ppx: SCDs, TEDs, ASA BID -WBAT RLE -PT/OT -PO XR demonstrates a well aligned well fixed prothesis without fracture/dislocation -am labs - as above, hgb 10.1. Patient with ADRIANA Cr 1.39, pre op Cr 1.07, will monitor, IV fluids, avoid nephrotoxic medications, encourage PO intake. -DC planning - home with Admission and Anticipated Discharge Date Admission Date: November 04, 2019 Subjective Post Operative Progress Note Patient seen sitting up in bed eating breakfast, currently on NC oxygen, VSS, comfortable, denies complaints, pain well controlled, no acute issues. Denies F/C/N/V/SOB/CP. Review of Systems Review of Systems: All systems reviewed & are unremarkable except as noted in HPI & below Constitutional: as per Subjective / HPI Physical Exam Physical Exam: RLE NVSI +EHL/FHL/TA/GS SILT grossly, +2 DP pulse, compartments soft NT, dressing cdi. Constitutional: WD/WN, vitals as above Results & Data ([facility]) Vital Signs (Past 12 Hours) Vital Signs Temp Pulse Pulse Pulse Pulse Resp BP 11/06/19 11:29 17 11/06/19 11:09 36.5 C 80 20 98/61 L 11/06/19 07:07 81 24 11/06/19 03:39 36.4 C L 82 18 113/69 11/06/19 03:12 87 17 Pulse Ox 11/06/19 11:29 95 11/06/19 11:09 94 11/06/19 07:07 99 11/06/19 03:39 100 11/06/19 03:12 100 Laboratory Results 11/06/19 11/06/19 11/06/19 Range/Units 11:05 09:56 08:41 WBC (4.8-10.8) K/uL RBC (4.2-5.4) M/uL Hgb (12.0-16.0) g/dL Hct (37-47) % MCV (80-100) fL MCH (25-34) pg MCHC (32-36) g/dL RDW Std Deviation (36.4-46.3) fL RDW Coeff of Clemencia (11.5-14.5) % Plt Count (130-400) K/uL MPV (7.4-10.4) fL Sample Site POC pH (7.35-7.45) POC pCO2 (35-46) mmHg POC pO2 (80-95) mmHg POC HCO3 (19-24) emerson/L POC Total CO2 (24-31) mmol/L POC Base Excess (-9-1.8) emerson/L ABG pH 7.43 (7.35-7.45) ABG pCO2 37 (35-46) mmHg ABG pO2 84 (80-95) mmHg ABG HCO3 24 (19-24) mmol/L POC ABG O2 Sat (90-95) % ABG O2 Saturation 96.0 H (90-95) % ABG Base Excess -0.5 (-9-1.8) mEq/L Javier Test Pos (Pos) Barometric Pressure 729.8 mm/Hg Oxygen Given 3L O2 Delivery Device POC O2 Rate POC FiO2 % IPAP Sodium (136-145) mmol/L Potassium 4.4 (3.5-5.1) mmol/L Chloride (98-107) mmol/L Carbon Dioxide (21-32) mmol/L Anion Gap (3-11) BUN (7-18) mg/dl Creatinine (0.6-1.2) mg/dl Est Cr Clr Drug Dosing ml/min Est GFR ( Amer) Est GFR (Non-Af Amer) BUN/Creatinine Ratio (10-20) Glucose (70-99) mg/dl POC Glucose 143 H (70-99) mg/dl Calcium (8.5-10.1) mg/dl Magnesium 2.2 (1.8-2.4) mg/dl Troponin I (0-0.045) ng/ml TSH (0.300-4.500) uIu/ml 11/06/19 11/06/19 11/06/19 Range/Units 08:26 08:26 07:12 WBC 9.36 (4.8-10.8) K/uL RBC 2.96 L (4.2-5.4) M/uL Hgb 9.3 L (12.0-16.0) g/dL Hct 27.1 L (37-47) % MCV 91.6 (80-100) fL MCH 31.4 (25-34) pg MCHC 34.3 (32-36) g/dL RDW Std Deviation 51.3 H (36.4-46.3) fL RDW Coeff of Clemencia 15.3 H (11.5-14.5) % Plt Count 215 (130-400) K/uL MPV 8.8 (7.4-10.4) fL Sample Site POC pH (7.35-7.45) POC pCO2 (35-46) mmHg POC pO2 (80-95) mmHg POC HCO3 (19-24) emerson/L POC Total CO2 (24-31) mmol/L POC Base Excess (-9-1.8) emerson/L ABG pH (7.35-7.45) ABG pCO2 (35-46) mmHg ABG pO2 (80-95) mmHg ABG HCO3 (19-24) mmol/L POC ABG O2 Sat (90-95) % ABG O2 Saturation (90-95) % ABG Base Excess (-9-1.8) mEq/L Javier Test (Pos) Barometric Pressure mm/Hg Oxygen Given O2 Delivery Device POC O2 Rate POC FiO2 % IPAP Sodium 134 L (136-145) mmol/L Potassium (3.5-5.1) mmol/L Chloride 103 (98-107) mmol/L Carbon Dioxide 24 (21-32) mmol/L Anion Gap 7.0 (3-11) BUN 19 H (7-18) mg/dl Creatinine 1.25 H (0.6-1.2) mg/dl Est Cr Clr Drug Dosing 39.2 ml/min Est GFR ( Amer) 49.1 Est GFR (Non-Af Amer) 42.3 BUN/Creatinine Ratio 14.9 (10-20) Glucose 182 H (70-99) mg/dl POC Glucose 139 H (70-99) mg/dl Calcium 8.6 (8.5-10.1) mg/dl Magnesium (1.8-2.4) mg/dl Troponin I (0-0.045) ng/ml TSH 0.525 (0.300-4.500) uIu/ml 11/05/19 11/05/19 11/05/19 Range/Units 20:30 16:25 14:55 WBC (4.8-10.8) K/uL RBC (4.2-5.4) M/uL Hgb (12.0-16.0) g/dL Hct (37-47) % MCV (80-100) fL MCH (25-34) pg MCHC (32-36) g/dL RDW Std Deviation (36.4-46.3) fL RDW Coeff of Clemencia (11.5-14.5) % Plt Count (130-400) K/uL MPV (7.4-10.4) fL Sample Site R Radial POC pH 7.25 L (7.35-7.45) POC pCO2 56 H (35-46) mmHg POC pO2 363 H (80-95) mmHg POC HCO3 25 H (19-24) emerson/L POC Total CO2 26 (24-31) mmol/L POC Base Excess -3.0 (-9-1.8) emerson/L ABG pH (7.35-7.45) ABG pCO2 (35-46) mmHg ABG pO2 (80-95) mmHg ABG HCO3 (19-24) mmol/L POC ABG O2 Sat 100.0 H (90-95) % ABG O2 Saturation (90-95) % ABG Base Excess (-9-1.8) mEq/L Javier Test Pass (Pos) Barometric Pressure mm/Hg Oxygen Given O2 Delivery Device BIPAP POC O2 Rate 14 POC FiO2 100 % IPAP 12 Sodium (136-145) mmol/L Potassium (3.5-5.1) mmol/L Chloride (98-107) mmol/L Carbon Dioxide (21-32) mmol/L Anion Gap (3-11) BUN (7-18) mg/dl Creatinine (0.6-1.2) mg/dl Est Cr Clr Drug Dosing ml/min Est GFR ( Amer) Est GFR (Non-Af Amer) BUN/Creatinine Ratio (10-20) Glucose (70-99) mg/dl POC Glucose 224 H 207 H (70-99) mg/dl Calcium (8.5-10.1) mg/dl Magnesium (1.8-2.4) mg/dl Troponin I (0-0.045) ng/ml TSH (0.300-4.500) uIu/ml 11/05/19 11/05/19 Range/Units 14:01 12:51 WBC (4.8-10.8) K/uL RBC (4.2-5.4) M/uL Hgb (12.0-16.0) g/dL Hct (37-47) % MCV (80-100) fL MCH (25-34) pg MCHC (32-36) g/dL RDW Std Deviation (36.4-46.3) fL RDW Coeff of Clemencia (11.5-14.5) % Plt Count (130-400) K/uL MPV (7.4-10.4) fL Sample Site POC pH (7.35-7.45) POC pCO2 (35-46) mmHg POC pO2 (80-95) mmHg POC HCO3 (19-24) emerson/L POC Total CO2 (24-31) mmol/L POC Base Excess (-9-1.8) emerson/L ABG pH 7.24 L (7.35-7.45) ABG pCO2 55 H (35-46) mmHg ABG pO2 70 L (80-95) mmHg ABG HCO3 23 (19-24) mmol/L POC ABG O2 Sat (90-95) % ABG O2 Saturation 89.6 L (90-95) % ABG Base Excess -4.2 (-9-1.8) mEq/L Javier Test Pos (Pos) Barometric Pressure 731.0 mm/Hg Oxygen Given 5 L O2 Delivery Device POC O2 Rate POC FiO2 % IPAP Sodium 132 L (136-145) mmol/L Potassium 4.4 (3.5-5.1) mmol/L Chloride 103 (98-107) mmol/L Carbon Dioxide 22 (21-32) mmol/L Anion Gap 7.0 (3-11) BUN 18 (7-18) mg/dl Creatinine 1.33 H (0.6-1.2) mg/dl Est Cr Clr Drug Dosing 36.0 ml/min Est GFR ( Amer) 45.5 Est GFR (Non-Af Amer) 39.3 BUN/Creatinine Ratio 13.8 (10-20) Glucose 247 H (70-99) mg/dl POC Glucose (70-99) mg/dl Calcium 8.7 (8.5-10.1) mg/dl Magnesium 2.4 (1.8-2.4) mg/dl Troponin I < 0.015 (0-0.045) ng/ml TSH (0.300-4.500) uIu/ml
[2019-11-06] MEDS: SENNA 8.6 MG TAB PO SCH (20:26)
[2019-11-06] MEDS: ROSUVASTATIN CALCIUM 20 MG TAB PO SCH (20:26)
[2019-11-06] MEDS: MONTELUKAST SODIUM 10 MG TABLET PO SCH (20:27)
[2019-11-06] MEDS ORDERED: INSULIN GLARGINE SOLOSTAR 100 UNITS/ML 3 ML PEN SC SCH (21:00)
[2019-11-07] MEDS: OXYCODONE HCL IR 5 MG TAB (IMMEDIATE RELEASE) PO PRN ×2 (01:51→09:01)
[2019-11-07] MEDS ORDERED: INSULIN ASPART 100 UNITS/ML 3 ML PEN SC SCH (02:00)
[2019-11-07 06:00] LABS: Hematocrit (blood only) 29.1 % (37-47); Hemoglobin 9.9 g/dL (12.0-16.0); Mean Corpuscular Hemoglobin 31.6 pg (25-34); Mean Platelet Volume 8.8 fL (7.4-10.4); Platelet Count 212 K/uL (130-400); RDW Coefficient of Variation 15.5 % (11.5-14.5); RDW Standard Deviation 51.9 fL (36.4-46.3); Red Blood Count 3.13 M/uL (4.2-5.4); White Blood Count 7.31 K/uL (4.8-10.8)
[2019-11-07] MEDS: ACETAMINOPHEN 500 MG TAB PO SCH ×3 (06:02→21:12)
[2019-11-07 06:33] LABS: BUN Creatinine Ratio 17.1 (10-20); Calcium 8.8 mg/dl (8.5-10.1); Creatinine Clr Calc Pharmacy 42.6 ml/min; Est GFR (African American) 54.3; Est GFR (Non-African American) 46.8; Potassium 4.3 mmol/L (3.5-5.1)
[2019-11-07 06:37] LABS: Ferritin 186.5 ng/ml (8-388)
[2019-11-07] MEDS ORDERED: BUMETANIDE 1 MG in SYRINGE 0 ML IV ONE ×2 (07:45→17:00)
[2019-11-07] MEDS: INSULIN ASPART 100 UNITS/ML 3 ML PEN SC SCH ×4 (07:46→21:13)
[2019-11-07] MEDS: ASPIRIN 81 MG ECTAB PO SCH ×2 (07:51→20:10)
[2019-11-07] MEDS: PANTOprazole 40 MG TAB PO SCH (07:52)
[2019-11-07] MEDS: MULTIVITAMIN TAB PO SCH (07:52)
[2019-11-07] MEDS: GABAPENTIN 400 MG CAP PO SCH ×3 (07:52→20:09)
[2019-11-07] MEDS: RANOLAZINE 500 MG ER TAB PO SCH ×2 (07:52→20:10)
[2019-11-07] MEDS: ATENOLOL 50 MG TABLET PO SCH ×2 (07:53→20:10)
[2019-11-07] MEDS: UMECLIDINIUM BROMIDE 62.5MCG/BLISTER 7 PUFFS/INHALER INH SCH (07:53)
[2019-11-07] MEDS: DOCUSATE SODIUM 100 MG CAP PO SCH ×2 (07:55→20:18)
--- NOTE | 2019-11-07 09:28 | Orthopedic Progress Note ---
Date of Service November 07, 2019 Assessment & Plan (1) Degenerative joint disease of knee, right: s/p Right TKA POD#3 -ARF - Hospitalist and Pulm recs appreciated. Resolved, patient doing well on room air at this time -ancef x 24 -DVT ppx: SCDs, TEDs, ASA BID -WBAT RLE -PT/OT -PO XR demonstrates a well aligned well fixed prothesis without fracture/dislocation -am labs - as above, hgb 9.9. ADRIANA - resolved, Cr 1.15. -DC planning - Rehab vs home when stable POD#2 -ARF - Hospitalist and Pulm recs appreciated. BiPAP discontinued this a.m., patient tolerating 02 with NC. -ancef x 24 -DVT ppx: SCDs, TEDs, ASA BID -WBAT RLE -PT/OT -PO XR demonstrates a well aligned well fixed prothesis without fracture/dislocation -am labs - as above, hgb 9.3. Cr 1.25, improving. -DC planning - Rehab when stable POD#1 -ARF - Hospitalist and Pulm recs appreciated. Currently on Bipap, will continue overnight. Showing improvement. -ancef x 24 -DVT ppx: SCDs, TEDs, ASA BID -WBAT RLE -PT/OT -PO XR demonstrates a well aligned well fixed prothesis without fracture/dislocation -am labs - as above, hgb 10.1. Patient with ADRIANA Cr 1.39, pre op Cr 1.07, will monitor, IV fluids, avoid nephrotoxic medications, encourage PO intake. -DC planning - home with Admission and Anticipated Discharge Date Admission Date: November 04, 2019 Subjective Post Operative Progress Note Patient seen sitting in chair at bedside on room air, comfortable, denies complaints, pain well controlled, no acute issues. Denies F/C/N/V/SOB/CP. Patient's preference at discharge to is return home. Review of Systems Review of Systems: All systems reviewed & are unremarkable except as noted in HPI & below Constitutional: as per Subjective / HPI Physical Exam Physical Exam: RLE NVSI +EHL/FHL/TA/GS SILT grossly, +2 DP pulse, compartments soft NT, dressing cdi. Constitutional: WD/WN, vitals as above Results & Data ([facility]) Vital Signs (Past 12 Hours) Vital Signs Temp Pulse Pulse Resp BP Pulse Ox 11/07/19 07:00 75 11/07/19 04:50 36.5 C 74 18 133/73 93 11/06/19 23:33 36.5 C 75 18 135/77 100 11/06/19 22:20 79 11/06/19 21:50 87 18 92 Laboratory Results 11/07/19 11/07/19 11/07/19 Range/Units 07:14 05:30 05:30 WBC 7.31 (4.8-10.8) K/uL RBC 3.13 L (4.2-5.4) M/uL Hgb 9.9 L (12.0-16.0) g/dL Hct 29.1 L (37-47) % MCV 93.0 (80-100) fL MCH 31.6 (25-34) pg MCHC 34.0 (32-36) g/dL RDW Std Deviation 51.9 H (36.4-46.3) fL RDW Coeff of Clemencia 15.5 H (11.5-14.5) % Plt Count 212 (130-400) K/uL MPV 8.8 (7.4-10.4) fL Sodium 139 (136-145) mmol/L Potassium 4.3 (3.5-5.1) mmol/L Chloride 105 (98-107) mmol/L Carbon Dioxide 31 (21-32) mmol/L Anion Gap 3.0 (3-11) BUN 20 H (7-18) mg/dl Creatinine 1.15 (0.6-1.2) mg/dl Est Cr Clr Drug Dosing 42.6 ml/min Est GFR ( Amer) 54.3 Est GFR (Non-Af Amer) 46.8 BUN/Creatinine Ratio 17.1 (10-20) Glucose 77 (70-99) mg/dl POC Glucose 84 (70-99) mg/dl Calcium 8.8 (8.5-10.1) mg/dl Magnesium (1.8-2.4) mg/dl Iron 40 (35-150) mcg/dl Transferrin 233 (200-360) mg/dl Transferrin % Sat 12 L (15-50) % Ferritin 186.5 (8-388) ng/ml TSH (0.300-4.500) uIu/ml 11/07/19 11/06/19 11/06/19 Range/Units 01:56 20:40 16:23 WBC (4.8-10.8) K/uL RBC (4.2-5.4) M/uL Hgb (12.0-16.0) g/dL Hct (37-47) % MCV (80-100) fL MCH (25-34) pg MCHC (32-36) g/dL RDW Std Deviation (36.4-46.3) fL RDW Coeff of Clemencia (11.5-14.5) % Plt Count (130-400) K/uL MPV (7.4-10.4) fL Sodium (136-145) mmol/L Potassium (3.5-5.1) mmol/L Chloride (98-107) mmol/L Carbon Dioxide (21-32) mmol/L Anion Gap (3-11) BUN (7-18) mg/dl Creatinine (0.6-1.2) mg/dl Est Cr Clr Drug Dosing ml/min Est GFR ( Amer) Est GFR (Non-Af Amer) BUN/Creatinine Ratio (10-20) Glucose (70-99) mg/dl POC Glucose 114 H 237 H 183 H (70-99) mg/dl Calcium (8.5-10.1) mg/dl Magnesium (1.8-2.4) mg/dl Iron (35-150) mcg/dl Transferrin (200-360) mg/dl Transferrin % Sat (15-50) % Ferritin (8-388) ng/ml TSH (0.300-4.500) uIu/ml 11/06/19 11/06/19 11/06/19 Range/Units 11:05 09:56 08:26 WBC (4.8-10.8) K/uL RBC (4.2-5.4) M/uL Hgb (12.0-16.0) g/dL Hct (37-47) % MCV (80-100) fL MCH (25-34) pg MCHC (32-36) g/dL RDW Std Deviation (36.4-46.3) fL RDW Coeff of Clemencia (11.5-14.5) % Plt Count (130-400) K/uL MPV (7.4-10.4) fL Sodium 134 L (136-145) mmol/L Potassium 4.4 (3.5-5.1) mmol/L Chloride 103 (98-107) mmol/L Carbon Dioxide 24 (21-32) mmol/L Anion Gap 7.0 (3-11) BUN 19 H (7-18) mg/dl Creatinine 1.25 H (0.6-1.2) mg/dl Est Cr Clr Drug Dosing 39.2 ml/min Est GFR ( Amer) 49.1 Est GFR (Non-Af Amer) 42.3 BUN/Creatinine Ratio 14.9 (10-20) Glucose 182 H (70-99) mg/dl POC Glucose 143 H (70-99) mg/dl Calcium 8.6 (8.5-10.1) mg/dl Magnesium 2.2 (1.8-2.4) mg/dl Iron (35-150) mcg/dl Transferrin (200-360) mg/dl Transferrin % Sat (15-50) % Ferritin (8-388) ng/ml TSH 0.525 (0.300-4.500) uIu/ml
--- NOTE | 2019-11-07 10:18 | Pharmacy Report ---
Pharmacy Glycemic Short Note 2 - Date of Service November 07, 2019 - Glycemic Short BSG Results (Last 24 hours): 11/06/19 11/06/19 11/06/19 11:05 16:23 20:40 Glucose POC Glucose 143 H 183 H 237 H 11/07/19 11/07/19 11/07/19 01:56 05:30 07:14 Glucose 77 POC Glucose 114 H 84 OUTPATIENT ANTIDIABETIC REGIMEN: * Glargine 65 units SQ Q HS * Metformin 1000mg PO BID * Semaglutide 1mg SQ weekly on Sunday * A1c 6.6% 11/05/19 ASSESSMENT: 11/07/19 * BSGs fairly well controlled over last 24 hrs with the exception of HS BSG elevation. This elevation may be due to inadequate prandial insulin w/ e vening meal or perhaps secondary to wearing off of Lantus before 24 hrs. Given this was an isolated event, will continue the same prandial insulin dose at this time. I feel I do have to scale back the Lantus dose however given fasting AM BSG was less than 100 this AM with 65 units basal on board. * Patient is tolerating diet well. * No steroids were administered in last 24 hrs. 11/06/19 * Patient about to be discharged yesterday but then had flash pulmonary edema after 500 mL fluid which required transfer to telemetry * Patient received methylprednisolone 125 mg IV x1 yesterday afternoon for the above mentioned event. BSG's therefore again elevated yesterday evening x2. Per pulmonary note - not likely to receive additional systemic steroids. Anticipate that effects of methylprednisolone dose yesterday may be dissipating, but will tighten CHO ratio for now. Likely can loosen later today * AM fasting BSG within goal range. OK to continue home dose, but will add in parameters for reduced dose if BSG is lower this evening as PO intake may be poor (0-10 g CHO the last three meals), steroid effects will have dissipated by tonight, and home Lantus may provide some prandial coverage 11/05/19 * Type 2 diabetic admitted for R TKA * POD # 1 * BSGs quickly deteriorated yesterday post-op, likely due to pre-op dexamethasone administration in combination with surgical stressors * Insulin drip initiated last evening for BSGs in low 400s. BSGs 130-150s range this AM. PRP reviewed. No metabolic acidosis evident. * Will transition patient off insulin drip this AM as the effects of a single PO dexamethasone dose on insulin resistance typically begin to dissipate after 24-36 hours. Patient may be discharged this afternoon. Will give 20 units NPH this AM to facilitate transition off drip. * Will continue to dose Novolog aggressively until it is evident that insulin resistance decreasing PLAN FOR INPATIENT GLYCEMIC CONTROL: * Hold outpatient oral diabetes medications * Basal insulin * Lantus 50 units SQ Q HS * Bolus insulin * NovoLog per scale ACHS or Q6hrs while NPO * Goal Range: Low 110 mg/dL - High 140 mg/dL * Correction Factor: 12 mg/dL/unit * Nutritional / Prandial insulin per carb ratio of 1 unit per 4 grams CHO consumed PLAN FOR DISCHARGE: * A1c at goal. May resume home regimen if no contraindications present at time of discharge.
--- NOTE | 2019-11-07 19:46 | Hospitalist Progress Note ---
Date of Service November 07, 2019 Assessment & Plan (1) Acute on chronic combined systolic and diastolic CHF (congestive heart failure): clinically improving with excellent diuresis overnight. give 2 additional doses of IV bumex today. cont to hold PO bumex. repeat BMP am. reassess for additional IV diuretics in am. echo 2019 in [place] per records with EF 45%; nonischemic cardiomyopathy. EF on left-heart cath 2019 also with EF 45%. Will defer on repeat echo. Cont BB. (2) Acute respiratory failure with hypoxia and hypercapnia: 2nd to decompensated CHF . Nearly resolved. Cont to diurese. (3) S/P total knee arthroplasty: POD #3 s/p right TKR. pain control, DVT proph, dispo - defer to ortho. (4) Hypothyroidism: TSH wnl. Cont synthroid. (5) LBBB (left bundle branch block): Chronic. Non-obstructive CAD on heart cath 2019 (tightest occlusion 60% in distal LCx. (6) CKD (chronic kidney disease) stage 3, GFR 30-59 ml/min: Cr stable again today. BMP am. (7) CAD (coronary artery disease): Cont BB. Cont asa. Cont statin. Cont ranexa. Nonobstructive on cath 2019. No ischemic sx's. (8) Diabetes mellitus, type II: pharmacy managing control very adequate (9) COPD (chronic obstructive pulmonary disease): stable cont usual inhalers (10) History of iron deficiency: iron studies suggest mild Fe def (trans sat <20%) oral Fe at discharge superimposed acute blood loss anemia in setting of right TKR - stable H/H today (11) Acute blood loss anemia: mild H/H acceptable today (12) DVT prophylaxis: asa BID per ortho will cont to follow updated at bedside once again discharge planning per ortho Admission and Anticipated Discharge Date Admission Date: November 04, 2019 Subjective tele overnight wnl feels better - breathing improved, although during sleep O2 was applied for low O2 sats. she is not coughing. denies orthopnea. having right knee pain. eating well. still no BM but passing flatus. Review of Systems Constitutional: no fever Respiratory: no cough and no wheezing Cardiovascular: no chest pain and no orthopnea Physical Exam Constitutional: no acute distress and no altered mental status ENMT: external ear and nose normal, oropharynx normal Respiratory: no respiratory distress Auscultation: + crackles (b/l but improved ); no wheezes Cardiovascular: Rate/Rhythm: regular rate and regular rhythm Heart Sounds: normal S1 and normal S2; no murmur Vessels: + JVD, posterior tibial pulses present and dorsalis pedis pulses present Extremities: + edema (trace right ankle; none left) Gastrointestinal (Abdomen): normal bowel sounds, soft, nontender, no hepatosplenomegaly Psychiatric: A+Ox3, euthymic affect Results & Data Results & Data ([facility]) Vital Signs (Past 12 Hours) Vital Signs Temp Pulse Pulse Resp BP Pulse Ox 11/07/19 15:11 36.9 C 69 14 107/59 L 94 11/07/19 14:20 74 11/07/19 13:03 95 11/07/19 12:44 36.3 C L 81 20 110/66 91 Laboratory Results Laboratory Results - last 24 hr 11/06/19 11/07/19 11/07/19 20:40 01:56 05:30 WBC 7.31 RBC 3.13 L Hgb 9.9 L Hct 29.1 L MCV 93.0 MCH 31.6 MCHC 34.0 RDW Std Deviation 51.9 H RDW Coeff of Clemencia 15.5 H Plt Count 212 MPV 8.8 Sodium Potassium Chloride Carbon Dioxide Anion Gap BUN Creatinine Est Cr Clr Drug Dosing Est GFR ( Amer) Est GFR (Non-Af Amer) BUN/Creatinine Ratio Glucose POC Glucose 237 H 114 H Calcium Iron Transferrin Transferrin % Sat Ferritin 11/07/19 11/07/19 11/07/19 05:30 07:14 11:25 WBC RBC Hgb Hct MCV MCH MCHC RDW Std Deviation RDW Coeff of Clemencia Plt Count MPV Sodium 139 Potassium 4.3 Chloride 105 Carbon Dioxide 31 Anion Gap 3.0 BUN 20 H Creatinine 1.15 Est Cr Clr Drug Dosing 42.6 Est GFR ( Amer) 54.3 Est GFR (Non-Af Amer) 46.8 BUN/Creatinine Ratio 17.1 Glucose 77 POC Glucose 84 117 H Calcium 8.8 Iron 40 Transferrin 233 Transferrin % Sat 12 L Ferritin 186.5 11/07/19 16:31 WBC RBC Hgb Hct MCV MCH MCHC RDW Std Deviation RDW Coeff of Clemencia Plt Count MPV Sodium Potassium Chloride Carbon Dioxide Anion Gap BUN Creatinine Est Cr Clr Drug Dosing Est GFR ( Amer) Est GFR (Non-Af Amer) BUN/Creatinine Ratio Glucose POC Glucose 208 H Calcium Iron Transferrin Transferrin % Sat Ferritin PG Care Time/CCT Total # of Minutes Spent Total Time Spent with Patient: Total time spent is greater than 50% in coordination of care (as documented) at patient's floor/unit and/or counseling patient: Coding Level of Care Code 75696 Subseq Hosp Care Lvl 2 Diagnoses Acute on chronic combined systolic and diastolic CHF (congestive heart failure) I50.43 Acute respiratory failure with hypoxia and hypercapnia J96.01; J96.02 S/P total knee arthroplasty Z96.651 Laterality: right Hypothyroidism E03.9 Hypothyroidism type: acquired LBBB (left bundle branch block) I44.7 CKD (chronic kidney disease) stage 3, GFR 30-59 ml/min N18.3 CAD (coronary artery disease) I25.10 Coronary Disease-Associated Artery/Lesion type: [place] artery [place] vs. transplanted heart: [place] heart Associated angina: without angina Diabetes mellitus, type II E11.9; Z79.4 Diabetes mellitus truck terminal manager insulin use: with correction use Diabetes mellitus complication status: without complication COPD (chronic obstructive pulmonary disease) J44.9 COPD type: unspecified COPD History of iron deficiency Z86.39 Acute blood loss anemia D62 DVT prophylaxis Z29.9 (1) S/P total knee arthroplasty Laterality: right Qualified Code(s): Z96.651 - Presence of right artificial knee joint (2) Hypothyroidism Hypothyroidism type: acquired Qualified Code(s): E03.9 - Hypothyroidism, unspecified (3) CAD (coronary artery disease) Coronary Disease-Associated Artery/Lesion type: [place] artery [place] vs. transplanted heart: [place] heart Associated angina: without angina Qualified Code(s): I25.10 - Atherosclerotic heart disease of [place] coronary artery without angina pectoris (4) Diabetes mellitus, type II Diabetes mellitus truck terminal manager insulin use: with correction use Diabetes mellitus complication status: without complication Qualified Code(s): E11.9 - Type 2 diabetes mellitus without complications; Z79.4 - intermediate (current) use of insulin (5) COPD (chronic obstructive pulmonary disease) COPD type: unspecified COPD Qualified Code(s): J44.9 - Chronic obstructive pulmonary disease, unspecified
[2019-11-07] MEDS: SENNA 8.6 MG TAB PO SCH (20:09)
[2019-11-07] MEDS: MONTELUKAST SODIUM 10 MG TABLET PO SCH (20:10)
[2019-11-07] MEDS: ROSUVASTATIN CALCIUM 20 MG TAB PO SCH ×2 (20:11→20:17)
[2019-11-07] MEDS: POLYETHYLENE (MIRALAX) 17 GM PACK PO SCH (20:18)
[2019-11-07] MEDS ORDERED: INSULIN GLARGINE SOLOSTAR 100 UNITS/ML 3 ML PEN SC SCH (21:00)
[2019-11-08] MEDS: OXYCODONE HCL IR 5 MG TAB (IMMEDIATE RELEASE) PO PRN ×3 (01:08→13:39)
[2019-11-08] MEDS: ACETAMINOPHEN 500 MG TAB PO SCH (05:55)
[2019-11-08 06:10] LABS: BUN Creatinine Ratio 16.6 (10-20); Calcium 8.7 mg/dl (8.5-10.1); Creatinine Clr Calc Pharmacy 38.4 ml/min; Est GFR (African American) 48.1; Est GFR (Non-African American) 41.5; Potassium 3.8 mmol/L (3.5-5.1)
[2019-11-08] MEDS: INSULIN ASPART 100 UNITS/ML 3 ML PEN SC SCH ×2 (07:46→11:59)
[2019-11-08] MEDS: POLYETHYLENE (MIRALAX) 17 GM PACK PO SCH (07:51)
[2019-11-08] MEDS: MULTIVITAMIN TAB PO SCH (07:52)
[2019-11-08] MEDS: ASPIRIN 81 MG ECTAB PO SCH (07:52)
[2019-11-08] MEDS: UMECLIDINIUM BROMIDE 62.5MCG/BLISTER 7 PUFFS/INHALER INH SCH (07:52)
[2019-11-08] MEDS: GABAPENTIN 400 MG CAP PO SCH ×2 (07:52→13:40)
[2019-11-08] MEDS: PANTOprazole 40 MG TAB PO SCH (07:53)
[2019-11-08] MEDS: RANOLAZINE 500 MG ER TAB PO SCH (07:53)
[2019-11-08] MEDS: ATENOLOL 50 MG TABLET PO SCH (07:53)
[2019-11-08] MEDS: DOCUSATE SODIUM 100 MG CAP PO SCH (08:20)
[2019-11-08] MEDS ORDERED: BUMETANIDE 1 MG in SYRINGE 0 ML IV ONE (08:30)
[2019-11-08] MEDS ORDERED: BUMETANIDE 1 MG in SYRINGE 0 ML IV SCH (08:30)
--- NOTE | 2019-11-08 09:15 | Orthopedic Progress Note ---
Date of Service November 08, 2019 Assessment & Plan (1) Degenerative joint disease of knee, right: s/p Right TKA POD#4 -ARF - Hospitalist and Pulm recs appreciated. Still using 2L at night. -DVT ppx: SCDs, TEDs, ASA BID -WBAT RLE -PT/OT -DC planning - Requesting HH on D/C. Will discuss with medicine concerning home O2 vs further observation. POD#2 -ARF - Hospitalist and Pulm recs appreciated. BiPAP discontinued this a.m., patient tolerating 02 with NC. -ancef x 24 -DVT ppx: SCDs, TEDs, ASA BID -WBAT RLE -PT/OT -PO XR demonstrates a well aligned well fixed prothesis without fracture/dislocation -am labs - as above, hgb 9.3. Cr 1.25, improving. -DC planning - Rehab when stable POD#1 -ARF - Hospitalist and Pulm recs appreciated. Currently on Bipap, will continue overnight. Showing improvement. -ancef x 24 -DVT ppx: SCDs, TEDs, ASA BID -WBAT RLE -PT/OT -PO XR demonstrates a well aligned well fixed prothesis without fracture/dislocation -am labs - as above, hgb 10.1. Patient with ADRIANA Cr 1.39, pre op Cr 1.07, will monitor, IV fluids, avoid nephrotoxic medications, encourage PO intake. -DC planning - home with HH Admission and Anticipated Discharge Date Admission Date: November 04, 2019 Subjective POD #4 tele overnight feels better - breathing improved, although during sleep O2 was applied for low O2 sats. she is not coughing. denies orthopnea. right knee feeling well Denies cp, n/v, dizziness eating well. Physical Exam Physical Exam: Right knee dressings c/d/i, no drainage. Toes/ ankle mobile. No calf tenderness. Ambulating well. A&Ox3. Results & Data ([facility]) Vital Signs (Past 12 Hours) Vital Signs Temp Pulse Pulse Pulse Resp BP Pulse Ox 11/08/19 07:20 36.8 C 74 19 108/60 90 11/08/19 04:00 36.7 C 68 20 99/63 L 96 11/08/19 03:28 63 18 96 11/07/19 23:50 65 11/07/19 23:03 36.6 C 68 16 96/53 L 97 11/07/19 21:49 68 15 94
--- NOTE | 2019-11-08 12:39 | Hospitalist Progress Note ---
Date of Service November 08, 2019 Assessment & Plan (1) Acute on chronic combined systolic and diastolic CHF (congestive heart failure): clinically resolved or nearly resolved. gave IV bumex this am. instructed patient to take 1mg of PO bumex at 1700 tonight. then a dose tomorrow AM, a dose tomorrow early evening; then resume 1mg po qam on Sunday and thereafter. echo 2019 in [place] per records with EF 45%; nonischemic cardiomyopathy. EF on left-heart cath 2019 also with EF 45%. Repeat echo deferred. Cont BB. Advised f/u with primary camera assembler in [place] THIS WEEK for recheck. Counseled her on daily weights, fluid & salt restriction, etc. Added instructions to d/c packet. (2) Acute respiratory failure with hypoxia and hypercapnia: 2nd to decompensated CHF - resolved. (3) S/P total knee arthroplasty: POD #4 s/p right TKR. pain control, DVT proph, dispo - defer to ortho. (4) Hypothyroidism: TSH wnl. Cont synthroid. (5) LBBB (left bundle branch block): Chronic. Non-obstructive CAD on heart cath 2019 (tightest occlusion 60% in distal LCx. Tele stable overnight. (6) CKD (chronic kidney disease) stage 3, GFR 30-59 ml/min: Cr stable again today. (7) CAD (coronary artery disease): Cont BB. Cont asa. Cont statin. Cont ranexa. Nonobstructive on cath 2019. No ischemic sx's. (8) Diabetes mellitus, type II: pharmacy managing control very adequate resume usual outpatient regimen at d/c (9) COPD (chronic obstructive pulmonary disease): stable cont usual inhalers (10) History of iron deficiency: iron studies suggest mild Fe def (trans sat <20%) oral Fe at discharge superimposed acute blood loss anemia in setting of right TKR (11) Acute blood loss anemia: mild (12) Nocturnal hypoxia: suspect sleep-disordered breathing advised that she see her home fire alarm installer in [place] to discuss formal sleep study patient snores per her o2 sats during day are normal no NARVAEZ at this time (13) DVT prophylaxis: asa BID per ortho From medical standpoint can d/c home with close outpatient cardiology follow-up in [place]. Admission and Anticipated Discharge Date Admission Date: November 04, 2019 Subjective patient feels well this am. no dyspnea, NARVAEZ or orthopnea. no PND. O2 was applied in the middle of the night during sleep. confirms patient indeed snores at night. she is not requiring O2 during the daytime. eating well. no N/V. passing flatus. no stool. Review of Systems Constitutional: no fever Respiratory: + cough and + sputum production; no dyspnea and no dyspnea on exertion Cardiovascular: no chest pain Gastrointestinal: no abdominal pain Physical Exam Constitutional: no acute distress and no altered mental status ENMT: external ear and nose normal, oropharynx normal Respiratory: no respiratory distress Auscultation: + crackles (Right base only; left base clear); no wheezes Cardiovascular: Rate/Rhythm: regular rate and regular rhythm Heart Sounds: normal S1 and normal S2; no murmur Vessels: posterior tibial pulses present and dorsalis pedis pulses present; no JVD Extremities: no edema Gastrointestinal (Abdomen): normal bowel sounds, soft, nontender, no hepatosplenomegaly Musculoskeletal: right knee with swelling and ecchymoses; incision clean, no drainage Psychiatric: A+Ox3, euthymic affect Results & Data Results & Data ([facility]) Vital Signs (Past 12 Hours) Vital Signs Temp Pulse Pulse Pulse Resp BP BP 11/08/19 11:39 36.8 C 71 14 107/47 L 11/08/19 07:20 36.8 C 74 19 108/60 11/08/19 07:00 69 11/08/19 04:00 36.7 C 68 20 99/63 L 11/08/19 03:28 63 18 Pulse Ox 11/08/19 11:39 90 11/08/19 07:20 90 11/08/19 07:00 11/08/19 04:00 96 11/08/19 03:28 96 Laboratory Results Laboratory Results - last 24 hr 11/07/19 11/07/19 11/08/19 16:31 20:53 05:18 Sodium 137 Potassium 3.8 Chloride 104 Carbon Dioxide 28 Anion Gap 5.0 BUN 21 H Creatinine 1.27 H Est Cr Clr Drug Dosing 38.4 Est GFR ( Amer) 48.1 Est GFR (Non-Af Amer) 41.5 BUN/Creatinine Ratio 16.6 Glucose 128 H POC Glucose 208 H 206 H Calcium 8.7 11/08/19 11/08/19 07:04 11:23 Sodium Potassium Chloride Carbon Dioxide Anion Gap BUN Creatinine Est Cr Clr Drug Dosing Est GFR ( Amer) Est GFR (Non-Af Amer) BUN/Creatinine Ratio Glucose POC Glucose 162 H 143 H Calcium PG Care Time/CCT Total # of Minutes Spent Total Time Spent with Patient: Total time spent is greater than 50% in coordination of care (as documented) at patient's floor/unit and/or counseling patient: Coding Level of Care Code 65618 Subseq Hosp Care Lvl 3 Diagnoses Acute on chronic combined systolic and diastolic CHF (congestive heart failure) I50.43 Acute respiratory failure with hypoxia and hypercapnia J96.01; J96.02 S/P total knee arthroplasty Z96.651 Laterality: right Hypothyroidism E03.9 Hypothyroidism type: acquired LBBB (left bundle branch block) I44.7 CKD (chronic kidney disease) stage 3, GFR 30-59 ml/min N18.3 CAD (coronary artery disease) I25.10 Associated angina: without angina Coronary Disease-Associated Artery/Lesion type: [place] artery [place] vs. transplanted heart: [place] heart Diabetes mellitus, type II E11.9; Z79.4 Diabetes mellitus complication status: without complication Diabetes mellitus mcfp insulin use: with mcfp use COPD (chronic obstructive pulmonary disease) J44.9 COPD type: unspecified COPD History of iron deficiency Z86.39 Acute blood loss anemia D62 Nocturnal hypoxia G47.34 DVT prophylaxis Z29.9 (1) Diabetes mellitus, type II Diabetes mellitus complication status: without complication Diabetes mellitus terminal make up operator insulin use: with mcfp use Qualified Code(s): E11.9 - Type 2 diabetes mellitus without complications; Z79.4 - assisted (current) use of insulin (2) CAD (coronary artery disease) Associated angina: without angina Coronary Disease-Associated Artery/Lesion type: [place] artery [place] vs. transplanted heart: [place] heart Qualified Code(s): I25.10 - Atherosclerotic heart disease of [place] coronary artery without angina pectoris (3) Hypothyroidism Hypothyroidism type: acquired Qualified Code(s): E03.9 - Hypothyroidism, unspecified (4) S/P total knee arthroplasty Laterality: right Qualified Code(s): Z96.651 - Presence of right artificial knee joint (5) COPD (chronic obstructive pulmonary disease) COPD type: unspecified COPD Qualified Code(s): J44.9 - Chronic obstructive pulmonary disease, unspecified
--- NOTE | 2019-11-08 17:44 | Discharge Summary ---
Date of Service November 08, 2019 Admission HPI Per Admitting Provider The patient is a 74 year old female who presents with complaints of severe right knee pain and DJD. The patient has failed outpatient conservative treatments to this point which included NSAIDs, IA corticosteroid injection, KABA injection, home exercise/walking program. The patient's pain and limited function have progressed to the point where they severely hinder their activities of daily living and they no longer tolerate exercise programs. They are requesting to proceed with total knee replacement surgery. Principal Diagnosis Right total knee replacement -Right knee DJD Discharge Exam RLE NVSI +EHL/FHL/TA/GS SILT grossly, +2 DP pulse, compartments soft NT, dressing cdi. Constitutional WD/WN, vitals as above Discharge Data Allergies Allergy/AdvReac Type Severity Reaction Status Date / Time ampicillin [From Omnipen] Allergy Unknown Rash Verified 11/04/19 06:30 fexofenadine [From Farzana] Allergy Unknown Rash Verified 11/04/19 06:30 lisinopril Allergy Unknown Rash Verified 11/04/19 06:30 nickel Allergy Unknown Rash Verified 11/04/19 06:30 BRAND NAMES NECESSARY Allergy Unknown PT REPORTS Uncoded 10/22/19 15:31 "NEEDS TO TAKE BRAND NAME MEDICIATIONS" Consultations 11/04/19 13:48 Consult Case Management - Discharge Planning Routine 11/05/19 11:57 Consult Hospitalist Stat 11/05/19 15:06 Consult Pulmonology Routine Procedures Performed Operation Date: 11/04/19 09:35 Actual Procedures p Right Total Knee Arthroplasty - Jaxson Marques DO Ordered Studies 11/04/19 05:00 US - OR guided needle placemen Routine 11/05/19 12:12 CT angio chest PE protocol Stat Hospital Course (1) Degenerative joint disease of knee, right: The patient is a 74 -year-old female who presents with long standing history of severe right knee DJD and failed outpatient conservative treatments. The patient's symptoms have progressed to the point where it has been difficult to perform even normal activities of daily living. I indicated the patient for a right total knee arthroplasty, the risks, benefits and complications of the procedure include but not limited to infection, bleeding, damage to bone, nerves, vessels, surrounding soft tissue, may develop blood clots, loss of function, leg length discrepancy, dislocation, failure of the components, loosening of the components, the need for additional surgery and . The patient wished to proceed with surgery at this time and informed consent was obtained. Hospital Course: On 11/04/19 the patient was taken to the operating room, adequate anesthesia administered and underwent a right total knee arthroplasty. The patient tolerated the procedure well and was taken to the PACU in stable condition. Post-operatively the patient was started on a DVT ppx medication and given appropriate IV antibiotics. Consults were placed to physical therapy, occupational therapy and case management. On POD#1, the patient did well overnight and their pain was well controlled. Labs were drawn and the Hgb was 10.1, Cr slightly increased from pre-operative labs at 1.39, for ADRIANA we encouraged PO intake, IV fluids, avoid nephrotoxic medications. While participating with the patient became short of breath and had 02 level reported at 81%. Immediately she was placed on O2 at 4L and her O2 saturation improved to 90%. Medical hospitalist consultation placed, patient had CT chest performed which was negative for PE. She was transferred to ICU, pulmonology/critical care consulted and started on BiPAP for ARF with hypoxia and hypercapnia. The patient was kept on BiAPAP and diuresed overnight. On POD#2, patient did well overnight and blood was WNL and BiPAP discontinued. Patient continued to do well on room air and participated in PT with a O2 sat of 96%. Labs were drawn and hgb was 9.3 and Cr improved 1.25. On POD#3, The patient continued to do well overnight. Progressed with PT with a O2 sat of 95%. Labs were drawn and hgb was 9.9 and Cr improved 1.15. Dressings were changed at this time and the incision was clean, dry and intact. The patient's ARF had resolved. PT recommended rehab stay however patient would not agree to rehab. The patient was kept one more day for further inpatient care. On POD#4, The patient did well overnight and progressed with PT. They were deemed stable by the orthopedic team and consultants to be discharged home with on 11/08/19. Discharge Instructions: Upon discharge the patient may weight bear as tolerates through their operative extremity. They were instructed to keep the incision clean and dry at all times. The patient may shower but should not submerge the incision, avoid bathing, pools and hot tubes. The patient was given a script for pain medication and should take as instructed. The patient was given a script for DVT ppx 81mg ASA BID and should take as directed. The patient was instructed to not drive or travel for long distances until cleared to do so. If the patient develops any symptoms of fevers, chills, nausea, vomiting, increased redness, swelling, pain or drainage from the surgical site, they should notify the office and/or proceed to the nearest emergency room. The patient should follow up in 10-14 days after surgery for their routine post-operative follow-up appointment and should call the office to confirm the date and time. The patient is to follow up closely with her logistics engineering manager and PCP within 1 week of discharge. s/p Right TKA POD#4 -ARF - Hospitalist and Pulm recs appreciated. Still using 2L at night. -DVT ppx: SCDs, TEDs, ASA BID -WBAT RLE -PT/OT -DC planning - Requesting HH on D/C. Will discuss with medicine concerning home O2 vs further observation. POD#3 -ARF - Hospitalist and Pulm recs appreciated. Resolved, patient doing well on room air at this time -ancef x 24 -DVT ppx: SCDs, TEDs, ASA BID -WBAT RLE -PT/OT -PO XR demonstrates a well aligned well fixed prothesis without fracture/dislocation -am labs - as above, hgb 9.9. ADRIANA - resolved, Cr 1.15. -DC planning - Rehab vs home when stable POD#2 -ARF - Hospitalist and Pulm recs appreciated. BiPAP discontinued this a.m., patient tolerating 02 with NC. -ancef x 24 -DVT ppx: SCDs, TEDs, ASA BID -WBAT RLE -PT/OT -PO XR demonstrates a well aligned well fixed prothesis without fracture/dislocation -am labs - as above, hgb 9.3. Cr 1.25, improving. -DC planning - Rehab when stable POD#1 -ARF - Hospitalist and Pulm recs appreciated. Currently on Bipap, will continue overnight. Showing improvement. -ancef x 24 -DVT ppx: SCDs, TEDs, ASA BID -WBAT RLE -PT/OT -PO XR demonstrates a well aligned well fixed prothesis without fracture/dislocation -am labs - as above, hgb 10.1. Patient with ADRIANA Cr 1.39, pre op Cr 1.07, will monitor, IV fluids, avoid nephrotoxic medications, encourage PO intake. -DC planning - home with HH Total Time Total Time Spent Total Time Spent (In Minutes): >60 minutes Discharge Plan Discharge Items Patient Disposition: Home - Home Health Services Reason For Visit: Unilateral Primary Osteoarthritis, Right Knee Discharge Diagnosis: Right total knee replacement Condition on Discharge: Good Activity: Per Instructions section Lifting: Wait until after follow-up appointment Bathing: Keep incision dry Bathing Comment: No bathing, pools or hot tubs Sexual Activity: Wait until after follow-up appointment Exercise/Sports: Wait until after follow-up appointment Driving/Machine Use: No driving Weightbearing: Full weightbearing Non-emergency contact: Primary Care Provider, Surgeon and Security Control Room Officer Call non-emergency contact if: you have any medication questions, your symptoms worsen, your pain is not controlled, your pain is worsening, your pain is unusual for you, your pain is concerning for you, you have a fever, your temperature is above 101, your wound has increased redness, your wound has increased drainage and your wound pain has increased Follow-up/Referrals: Kaylynn Mckoy DO [Primary Care Provider] - Diet: Carb Consistent or DM2 and Low Sodium (2gm) Fluids: 1800ml (7 cups) Addtl Attending Provider Instructions: ACTIVITY RECOMMENDATIONS: SELF CARE INSTRUCTIONS AFTER TOTAL KNEE REPLACEMENT A. You may need to continue a physical therapy program after discharge from the hospital. There are several options available to you. Your doctor will assist you in selecting the best one for you. 1. An out-patient facility 2 to 3 times a week for therapy or home therapy. 2. Continue working on all exercises taught to you in the hospital. Your goals should be to increase bending of your knee to 90 degrees and beyond and to fully straighten your knee. B. You may progress at your own pace from walking with a walker or crutches to a cane; then to no assistive devices. C. Make walking a part of your daily routine. Be up as much as comfortable with rest periods throughout the day. Rest with leg elevation is very important. Use the ice wrap frequently for the first 3-4 weeks. D. There are no restrictions on activities. You may ride in a car, shop, participate in bell captain and all social activities. E. Wear the long elastic stockings (EDEN hose) 20 hours a day for 2 weeks after surgery. They can be removed several times a day for laundering and for a bath. F. You may shower, no tub baths until cleared by your doctor. SPECIAL CARE INSTRUCTIONS: VERY IMPORTANT TO READ AND REVIEW A. There are a few signs you need to watch for after you are home. Call [facility] if you notice any of the followin. Increased severe knee pain. Some pain is expected especially when you exercise. 2. Increased swelling in your leg or knee; pain or swelling of the calf muscle in either lower leg. 3. Any fluid drainage from the incision. 4. Shortness of breath or chest pain. B. Please call [facility] at if you have any concerns or questions about your operation or recovery. The doctor or his nurse will return your call promptly. C. You must take antibiotics before dental work, bladder, bowel or other surgery. Your doctor will provide you with a permanent care to carry describing this precaution. IMPORTANT: * REMEMBER TO TAKE ASPIRIN, 325 MG, TWICE DAILY FOR 4 WEEKS UNLESS OTHERWISE DIRECTED. THIS IS YOUR BLOOD THINNER. * HIGH RISK PATIENTS MAY BE PRESCRIBED A STRONGER BLOOD THINNER. THIS WILL BE PROVIDED AT DISCHARGE. * CALL IF INCREASED PAIN, REDNESS, DRAINAGE OR FEVER GREATER THAT 101. * WEAR EDEN HOSE 20 HOURS PER DAY FOR 2 WEEKS. * YOU MAY HAVE A LARGE BAND-AID LIKE DRESSING (SILVERON). THIS WILL REMAIN ON YOUR INCISION FOR 7 DAYS, THEN CAN BE REMOVED. IF INCISION IS LEAKING THROUGH DRESSING, CALL THE OFFICE . FOLLOW UP VISIT: If appointment is not already scheduled: Please call [facility] to make a follow-up appointment for 2 weeks after your surgery at . Please follow up with your PCP within 1 week of discharge. Addtl Ladle Mechanic Provider Instructions: You were treated for acute congestive heart failure (water build-up in the lungs leading to difficulty breathing). You needed BiPAP and IV diuretics to improve. The BiPAP and oxygen were weaned off as the fluid resolved. Records show that your "ejection fraction" of the heart - which is a marker of the pumping ability of the heart - is about 45%. Normal is 60-65%. Thus, you have chronic congestive heart failure of mild degree. With proper diet, restriction of salt and fluids, and taking medicati ons congestive heart failure can be controlled. Recommendations - 1. take bumex 1mg by mouth at 5pm on 11/08/19. 2. take bumex 1mg by mouth tomorrow morning as usual. 3. take bumex 1mg by mouth tomorrow evening on 11/09/19 at 5pm. 4. then resume bumex 1mg daily on 11/10/19 as previous. 5. obtain a sleep study to rule out sleep apnea. Have your lung doctor set this up for you. 6. check your weight EVERY DAY on the same scale. Best to check your weight every morning after using the toilet. Write your weights down in a notebook. This will establish what your "Dry weight" is. Once the dry weight is established it is then easier to know if you are taking on excess fluid/water weight. The rule of thumb is that if you gain more than 2-3 pounds in 1-2 days beyond your dry weight you need to contact your doctors right away. This amount of rapid weight gain is usually from fluid. 7. see your logistics engineering manager within 3-4 days if possible to recheck your breathing and to ensure you are on the right amount of diuretic. 8. see your family doctor within 1-2 weeks. Congestive heart failure instructions - Call 911 and go to the Emergency Room if: * You have tightness or pain in your chest that does not go away with rest or Nitroglycerin * You are very short of breath even with rest Call your doctor if any of the following symptoms or problems start or get worse: * Shortness of breath or difficulty breathing * Wake up at night short of breath * Chest pain * Cough * Swelling of your hands, fee, or legs * More fatigued or tired with your normal activity * Palpitations - sudden fast heart beats WEIGHT * Weigh yourself every morning after using the bathroom. Try to establish what your "dry" weight is. * Use the same scale. * Wear the same amount of clothing. * Write your weight down on your chart. * Call your doctor if you gain more than 2-3 pounds in 1-2 days. This is usually a sign of water retention from your congestive heart failure* MEDICATIONS * Use this discharge instruction sheet for instructions. * Take your medications at the time your doctor ordered. * Do not skip a dose of your medicines. * If you miss a dose of medicine, take as soon as possible, but DO NOT DOUBLE A DOSE. * Read your medicine information when you get home. * Know all of the side effects of your medicine. * Call your doctor's office if you have any side effects. * Be sure all of your doctors know what medicine and herbs you take (including cold, flu, and herbal medicine). * Pain Medicine: If you do not get relief from your pain, please call your doctor for help. Take the following with you to your follow-up doctor appointments: * Weight Chart * Medication List * List of questions Do not drink excessive alcohol, beer or wine. Take good care and best wishes for speedy recovery, -Dr Grant, hospitalist Pending Studies at Discharge: No Stand-Alone Forms: My [facility] [employer], Smoking Cessation Medications and DC Order Prescriptions: New acetaminophen 500 mg Tablet 1,000 mg PO Q8 PRN (Reason: pain/fevers) Qty: 90 RF: 0 oxycodone 5 mg Tablet 5 mg PO Q6H MDD 4 PRN (Reason: pain) Qty: 30 RF: 0 sennosides [Senokot] 8.6 mg Tablet 17.2 mg PO HS PRN (Reason: constipation) Qty: 28 RF: 0 aspirin 81 mg Tablet,Delayed Release (Dr/Ec) 81 mg PO BID Qty: 56 RF: 0 Continued atenolol 100 mg Tablet 100 mg PO BID RF: 0 ondansetron HCl [Zofran] 4 mg Tablet 4 mg PO UD PRN (Reason: Nausea) RF: 0 gabapentin [Neurontin] 400 mg Capsule 400 mg PO TID RF: 0 esomeprazole magnesium [Nexium] 40 mg Capsule,Delayed Release(Dr/Ec) 40 mg PO QAM RF: 0 bumetanide 1 mg Tablet 1 mg PO QAM RF: 0 montelukast [Singulair] 10 mg Tablet 10 mg PO QPM RF: 0 magnesium 250 mg Tablet 500 mg PO BID RF: 0 albuterol sulfate 90 mcg/actuation Hfa Aerosol Inhaler 2 inh INHALATION Q4H PRN (Reason: HX LUNG SURGERY) RF: 0 metformin 500 mg Tablet Extended Release 24 Hr 1,000 mg PO BID RF: 0 dicyclomine 10 mg Capsule 10 mg PO QID PRN (Reason: IBS) RF: 0 coenzyme Q10 [CoQ-10] 100 mg Capsule 100 mg PO BID RF: 0 rosuvastatin [Crestor] 20 mg Tablet 20 mg PO QPM RF: 0 Spiriva with HandiHaler 18 mcg Capsule, W/Inhalation Device 1 cap INHALATION QAM RF: 0 omega-3 acid ethyl esters [Lovaza] 1 gram Capsule 2 cap PO BID RF: 0 ranolazine [Ranexa] 500 mg Tablet Extended Release 12 Hr 500 mg PO BID RF: 0 Lantus Solostar U-100 Insulin 100 unit/mL (3 mL) Insulin Pen 65 unit SUBCUT HS RF: 0 cholecalciferol (vitamin D3) [Vitamin D3] 50 mcg (2,000 unit) Capsule 50 mcg PO BID RF: 0 PreserVision AREDS-2 [id number] [id number] Capsule 1 tab PO BID RF: 0 Ozempic 1 mg/dose (2 mg/1.5 mL) Pen Injector 1 mg SUBCUT WK RF: 0 Vitamin B 12 Injection 1,000 mcg UD RF: 0 Discontinued aspirin [Aspir-81] 81 mg Tablet,Delayed Release (Dr/Ec) 81 mg PO QAM RF: 0 Discharge Orders: Discharge Order (Routine); Ordered 11/08/19 Ordered By: Brandon Bangura Admission Data Admit Date/Time: 11/04/19 12:31 Attending Provider: Jaxson Marques Admit Provider: Jaxson Marques Primary Care Provider: Kaylynn Mckoy Other Providers: Nancy,Home Health ; Angela Liao ; Jose Garcia Other Interventions: Discharge Summary Assessment (RN) Last Done: 11/08/19 13:27 DC Date/Time DO NOT enter until pt leaves facility: 11/08/19 14:15
[2019-11-08] MEDS ORDERED: INSULIN GLARGINE SOLOSTAR 100 UNITS/ML 3 ML PEN SC SCH (21:00)
== END 2019-11-08 14:15 | disposition home health service (06) | DRG 469 ==
LOC: ASU 04:59 → 3E 12:31 → 1E 11-05 12:13 → 2E 11-05 15:46